=== PATIENT | male | born 1980 | race Two or more races ===

== ENCOUNTER 2022-03-28 08:15 | Outpatient (REF) | payer MEDICARE, MEDICAID, SELFPAY ==
--- NOTE | ~2022-03-28 | XR_ITS ---
EXAMINATION: XR KNEE AP STANDING CLINICAL INFORMATION: M25.561 - Pain in right knee COMPARISON: Bilateral knee radiographs 06/08/2019 TECHNIQUE: Standing AP view of both knees is performed. FINDINGS: Normal bony mineralization. No definite knee joint compartment narrowing. No erosive change or visible chondrocalcinosis. No subchondral sclerosis. XR/XR knee standing BI IMPRESSION: Unremarkable bilateral knees.
== END 2022-03-28 08:16 | disposition home or self-care (01) ==
LOC: HO.HOSX 08:15
PROVIDERS: Visit Provider Physician Assistant
DX: M22.2X2 Patellofemoral disorders, left knee (principal); M22.2X1 Patellofemoral disorders, right knee
CPT/HCPCS: 73565; 99202

== ENCOUNTER 2022-04-16 08:26 | Outpatient (REF) | payer MEDICARE, MEDICAID, SELFPAY ==
--- NOTE | ~2022-04-16 | XR_ITS ---
EXAMINATION: XR HAND, RIGHT CLINICAL INFORMATION: Pain COMPARISON: None TECHNIQUE: PA, lateral, and oblique views of the right hand. FINDINGS: Bone alignment is normal. No fracture or dislocation is seen. There is mild arthritis at the IP joints and first MCP and SENIOR CARE joints with small osteophytes. Soft tissues are unremarkable. XR/XR hand RT min 3V IMPRESSION: Mild degenerative changes.
== END 2022-04-16 08:27 | disposition home or self-care (01) ==
LOC: HO.HOSX 08:26
PROVIDERS: Visit Provider Orthopaedic Surgery
DX: M65.4 Radial styloid tenosynovitis [de Quervain] (principal); R20.0 Anesthesia of skin; R20.2 Paresthesia of skin
CPT/HCPCS: 20550; 73130; 99202; J1100

== ENCOUNTER → 2022-04-29 14:46 | Outpatient (BNVA) | payer MEDICARE, MEDICAID, SELFPAY | PROVIDERS: PCP Nurse Practitioner; Visit Provider Orthopaedic Surgery | DX: M65.4 Radial styloid tenosynovitis [de Quervain] (principal); M25.531 Pain in right wrist; R20.0 Anesthesia of skin; R20.2 Paresthesia of skin | CPT/HCPCS: 99212 ==

== ENCOUNTER → 2022-11-27 10:31 | Outpatient (BNVA) | payer MEDICARE, MEDICAID, SELFPAY | PROVIDERS: PCP Nurse Practitioner; Visit Provider Student in an Organized Health Care Education/Training Program | DX: L40.50 Arthropathic psoriasis, unspecified (principal) | CPT/HCPCS: 99202 ==

== ENCOUNTER 2023-01-07 13:30 | Outpatient (REF) | payer MEDICARE, MEDICAID, SELFPAY ==
[2023-01-07 13:50] LABS: MANUAL DIFF FLAG NO
[2023-01-07 14:56] LABS: Basophils Absolute Auto 0.1 X10*3/uL (0.0-0.2); Basophils Percent Auto 0.7 % (0-2); Eosinophils Absolute Auto 0.4 X10*3/uL (0.0-0.4); Eosinophils Percent Auto 5.5 % (0-4); Hematocrit 34.5 % (42.0-52.0); Hemoglobin 11.1 g/dl (14.0-18.0); Imm Gran Abs Auto 0.03 X10*3/uL (0.00-0.03); Imm Gran Pct Auto 0.4 % (0.0-0.4); Lymphocytes Absolute Auto 1.5 X10*3/uL (1.2-4.9); Lymphocytes Percent Auto 21.4 % (20-40); Mean Corpuscular HGB Conc 32.2 g/dl (31.0-36.0); Mean Corpuscular Hemoglobin 25.1 pg (27.0-33.0); Mean Corpuscular Volume 78.1 fL (80.0-98.0); Mean Platelet Volume 8.9 fL (9.4-12.4); Monocytes Absolute Auto 0.4 X10*3/uL (0.1-1.2); Monocytes Percent Auto 6.1 % (2-11); Neutrophils Absolute Auto 4.5 x10*3/uL (2.0-8.3); Neutrophils Percent Auto 65.9 % (45-73); Platelet Count 339 X10*3/uL (160-400); Red Blood Count 4.42 X10*6/uL (4.60-5.80); White Blood Count 6.8 X10*3/uL (4.8-10.8)
[2023-01-07 15:26] LABS: Alanine Aminotransferase 25 U/L (0-40); Albumin Level 3.8 g/dL (3.5-5.0); Alkaline Phosphatase 98 U/L (39-117); Anion Gap 14 (12-20); Aspartate Amino Transferase 26 U/L (5-37); Bilirubin Total 0.2 mg/dL (0.0-1.0); Blood Urea Nitrogen 7 mg/dL (9-16); C Reactive Protein 2.53 mg/dL (< or = 0.50); Calcium 9.1 mg/dL (8.4-10.2); Carbon Dioxide 29 mmol/L (22-29); Chloride 100 mmol/L (96-108); Estimated Glomerular Filt Rate > 60; Glucose Random 188 mg/dL (60-115); Potassium 4.6 mmol/L (3.3-5.1); Sodium 138 mmol/L (135-145); Total Protein 7.4 g/dL (6.5-8.0)
[2023-01-07 15:28] LABS: Erythrocyte Sedimentation Rate 21 MM/HR (0-15)
[2023-01-09 07:02] LABS: HBS Num1 0.18 mIU/mL (0-7.99); HBc Num1 0.26 S/CO (0.00-0.79); HBsAGNum1 0.34 S/CO (0.00-0.99); Hepatitis A Antibody IgM 0.12 Index (0-0.79); Hepatitis B Core Antibody Nonreactive (Nonreactive); Hepatitis B Surface Antigen Negative (Negative); ~HepC Num1 0.15 S/CO (0.00-0.79); ~Hepatitis A Antibody IgM Nonreactive (Nonreactive); ~Hepatitis B Surface Antibody NONREACTIVE (Nonreactive); ~Hepatitis C Antibody Nonreactive (Nonreactive)
[2023-01-09 22:04] LABS: Prot Elec - Albumin 3.8 g/dL (3.8-4.8); Prot Elec - Alpha1 0.3 g/dL (0.2-0.3); Prot Elec - Alpha2 0.8 g/dL (0.5-0.9); Prot Elec - Beta 1 0.6 g/dL (0.4-0.6); Prot Elec - Beta 2 0.8 g/dL (0.2-0.5); Prot Elec - Gamma 1.5 g/dL (0.8-1.7); Prot Elec - Total Protein 7.7 g/dL (6.1-8.1)
[2023-01-10 07:54] LABS: TS Negative Control Passed; TS Panel A 1; TS Panel B 0; TS Positive Control Passed; TSpotTB Negative (Negative)
[2023-01-12 09:19] LABS: IgA 807 mg/dL (47-310); IgG 1432 mg/dL (600-1640); IgM 53 mg/dL (50-300)
[2023-01-12 12:29] LABS: HLA B27 Negative (Negative)
== END 2023-01-07 13:31 | disposition home or self-care (01) ==
LOC: HO.LAB 13:30
PROVIDERS: Visit Provider Student in an Organized Health Care Education/Training Program
DX: Z11.7 Encounter for testing for latent tuberculosis infection (principal); Z11.59 Encounter for screening for other viral diseases; L40.50 Arthropathic psoriasis, unspecified; L40.9 Psoriasis, unspecified; M54.50 Low back pain, unspecified
CPT/HCPCS: 36415; 80053; 82784; 84165; 85025; 85652; 86140; 86334; 86481; 86704; 86706; 86709; 86803; 86812; 87340

== ENCOUNTER → 2023-03-05 10:49 | Outpatient (BNVA) | payer MEDICARE, MEDICAID, SELFPAY | PROVIDERS: PCP Nurse Practitioner; Visit Provider Student in an Organized Health Care Education/Training Program | DX: L40.50 Arthropathic psoriasis, unspecified (principal); E11.9 Type 2 diabetes mellitus without complications; I10 Essential (primary) hypertension; E78.5 Hyperlipidemia, unspecified; Z79.631 Long term (current) use of antimetabolite agent; Z79.4 Long term (current) use of insulin | CPT/HCPCS: 99212 ==

== ENCOUNTER 2023-06-11 14:43 | Outpatient (REF) | payer MEDICARE, MEDICAID, SELFPAY ==
[2023-06-11 14:58] LABS: MANUAL DIFF FLAG NO
[2023-06-11 15:35] LABS: Basophils Absolute Auto 0.1 X10*3/uL (0.0-0.2); Basophils Percent Auto 0.8 % (0-2); Eosinophils Absolute Auto 0.3 X10*3/uL (0.0-0.4); Eosinophils Percent Auto 4.3 % (0-4); Hematocrit 33.7 % (42.0-52.0); Imm Gran Abs Auto 0.04 X10*3/uL (0.00-0.03); Imm Gran Pct Auto 0.6 % (0.0-0.4); Lymphocytes Absolute Auto 1.5 X10*3/uL (1.2-4.9); Lymphocytes Percent Auto 22.3 % (20-40); Mean Corpuscular HGB Conc 32.6 g/dl (31.0-36.0); Mean Corpuscular Hemoglobin 26.3 pg (27.0-33.0); Mean Corpuscular Volume 80.6 fL (80.0-98.0); Mean Platelet Volume 9.6 fL (9.4-12.4); Monocytes Absolute Auto 0.4 X10*3/uL (0.1-1.2); Monocytes Percent Auto 6.5 % (2-11); Neutrophils Absolute Auto 4.3 x10*3/uL (2.0-8.3); Neutrophils Percent Auto 65.5 % (45-73); Platelet Count 291 X10*3/uL (160-400); Red Blood Count 4.18 X10*6/uL (4.60-5.80); Red Cell Distribution Width 14.2 % (11.0-16.0); White Blood Count 6.5 X10*3/uL (4.8-10.8)
[2023-06-11 16:22] LABS: Alanine Aminotransferase 43 U/L (0-40); Albumin Level 3.9 g/dL (3.5-5.0); Alkaline Phosphatase 95 U/L (39-117); Anion Gap 16 (12-20); Aspartate Amino Transferase 41 U/L (5-37); Bilirubin Total 0.2 mg/dL (0.0-1.0); C Reactive Protein 4.06 mg/dL (< or = 0.50); Calcium 9.3 mg/dL (8.4-10.2); Carbon Dioxide 26 mmol/L (22-29); Chloride 98 mmol/L (96-108); Estimated Glomerular Filt Rate > 60; Glucose Random 277 mg/dL (60-115); Potassium 4.5 mmol/L (3.3-5.1); Sodium 135 mmol/L (135-145); Total Protein 7.6 g/dL (6.5-8.0)
[2023-06-11 17:05] LABS: Estimated Average Glucose 189 mg/dL; Hemoglobin A1c % 8.2 %
[2023-06-11 17:16] LABS: Blood Urea Nitrogen 9 mg/dL (9-16)
[2023-06-11 18:32] LABS: Erythrocyte Sedimentation Rate 33 MM/HR (0-15)
== END 2023-06-11 14:44 | disposition home or self-care (01) ==
LOC: HO.LAB 14:43
PROVIDERS: Visit Provider Student in an Organized Health Care Education/Training Program
DX: L40.50 Arthropathic psoriasis, unspecified (principal); E11.9 Type 2 diabetes mellitus without complications; Z79.631 Long term (current) use of antimetabolite agent; Z79.899 Other long term (current) drug therapy
CPT/HCPCS: 36415; 80053; 83036; 85025; 85652; 86140; 99212

== ENCOUNTER 2023-06-11 15:15 | Outpatient (AMB) | payer MEDICARE, MEDICAID, SELFPAY ==
--- NOTE | 2023-06-11 15:08 | A.OFFVIS_ITS ---
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 Accompanied by: Self / Same As Patient Allergies codeine Allergy (Severe, Verified 06/11/23 15:10) Swelling Medication List - Last Reconciled 06/11/23 by Jasmin Edouard MD dulaglutide (Trulicity) mg subcut folic acid 1 mg PO DAILY gabapentin 300 mg PO TID glipizide 5 mg PO BID hydrochlorothiazide 25 mg PO DAILY hydroxyzine HCl 25 mg PO TID lisinopril 40 mg PO DAILY meloxicam 15 mg PO DAILY metformin ER 1,000 mg PO BID methotrexate sodium 20 mg (8 x 2.5 mg) PO QWEEK polyethylene glycol 3350 17 grams PO DAILY risankizumab-rzaa (Skyrizi) 150 mg subcut Q4W 2 doses HPI HPI Comments History of Present Illness Details 42-year-old male with psoriasis and psoriatic arthritis returns for follow-up. His psoriasis is much better overall, his scalp, arms, forearms is entirely cleared, barely any psoriasis on his chest and abdomen, continues to have some psoriatic patches behind his ears and on his legs but much improved overall. His main complaint however remains his left knee pain, stiffness and swelling. Initial history: This is a 41-year-old male with a past medical history of hypertension, dyslipidemia, diabetes mellitus and psoriasis of presents for evaluation of psoriasis and psoriatic arthritis. Per patient he was diagnosed with psoriasis more than 20 years ago and psoriatic arthritis about 10 years ago. He stated he was on multiple medications for psoriasis but does not know the specifics. He stated that topical creams did not help. He was on Enbrel many years ago which helped for some time then it stopped helping, Humira did not help. He was started on Taltz about a year ago and it helped for about 5-6 months then stopped helping. He was also on cyclosporin for a few months which did seem to help but stopped helping. Currently has bilateral knee pain and right wrist pain. He denies any significant back pain. He had a colonoscopy last year for rectal bleeding and was told he has internal hemorrhoids. Per patient he was not told he has IBD. No inflammatory back pain symptoms. No history suggestive of uveitis. 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 Review of Systems [facility] Reports arthralgias and Reports joint swelling Skin/Breast Details: Psoriasis rash improved Reports rash Physical Exam Vital Signs: Last Vital Signs Temp 97.7 F 06/11/23 15:09 Pulse 87 06/11/23 15:09 BP 120/78 06/11/23 15:09 Pulse Ox 97 06/11/23 15:09 Oxygen Delivery Method Room Air 06/11/23 15:09 BMI result Body Mass Index 43.4 Const General: cooperative, healthy appearing, comfortable and in distress mild Nutritional Appearance: obese Orientation/consciousness: patient oriented x3 Limitations: no limitations HEENT Head: Yes normocephalic and Yes atraumatic Mouth: moist mucous membranes Resp Effort & Inspection: normal respiratory effort and able to speak in complete sentences Skin Other: Psoriasis is much improved, no psoriasis on face or scalp. Few psoriatic patches behind both ears. Barely any psoriasis on chest and abdomen. No psoriasis on arms and forearms. Continues to have few psoriatic patches from his knees down. Neuro General: patient oriented x3 Extrem Other: Bilateral nail pitting Left knee swelling and tenderness and pain with range of motion Right wrist pain with full flexion Assessment & Plan Assessment & Plan (1) Psoriasis: Comment: per patient: PSO dx around 1999 Enbrel secondary nonresponse Humira no response Taltz helped initially then stopped helping Cyclosporin not helpful Topical steroids not helpful Skyrizi started 01/08 effective MTX started 01/08 Code(s): L40.9 - Psoriasis, unspecified Plan: 42-year-old male with psoriasis presents for follow-up. Psoriasis doing much better overall on Skrizi and methotrexate. Patient received numerous biologics and he usually gets secondary nonresponse. He might be the developing autoantibodies towards the medications. Methotrexate may help prevent the formation of those antibodies and increase drug survival. Continue methotrexate 20 mg once weekly and folic acid daily. Continue Skyrizi Labs before next visit in 3 months Infectious screening and hepatitis panel negative 2022 (2) Psoriatic arthritis: Code(s): L40.50 - Arthropathic psoriasis, unspecified Plan: Psoriatic arthritis much better controlled on methotrexate and skyrizi. Continues to have left knee synovitis however. I was still unable to offer patient a corticosteroid injection due to psoriatic patches around his knee. Patient does not know what his most recent HbA1c was and does not know his latest blood sugar. Would avoid steroids today. Advised patient to start using meloxicam 15 mg daily (3) High risk medication use: Code(s): Z79.899 - Other rat exterminator (current) drug therapy Plan: Discussed risks and benefits of methotrexate and Skyrizi Stop methotrexate and Skyrizi if he develops a fever or infection. Monitor safety labs Plan I spent 26 minutes reviewing patient's chart, evaluating patient, ordering diagnostic workup, counseling patient and documenting in the chart Orders: Orders Complete Blood Count Auto Diff 3 Months L40.50 - Arthropathic psoriasis, unspecified Comprehensive Met. Panel 3 Months L40.50 - Arthropathic psoriasis, unspecified C Reactive Protein 3 Months L40.50 - Arthropathic psoriasis, unspecified Erythrocyte Sedimentation Rate 3 Months L40.50 - Arthropathic psoriasis, unsp ecified Medications: New meloxicam 15 mg PO DAILY 30 tabs 1RF Discontinued prednisone Discontinued Reason: Doctor's Order take 3 tabs by mouth once daily with breakfast for 1 week then 2 tabs daily for 1 week then 1 tab daily for 1 week th en stop Check your blood sugar and stop prednisone and call the office if blood sugar is above 250 42 tabs 0RF Coding Level of Care Code Est Pt Level 4 (06985) Diagnoses Psoriasis L40.9 Psoriatic arthritis L40.50 High risk medication use Z79.899
[2023-06-11 15:09] VITALS: BP 120/78; PULSE 87; TEMP 36.5; O2SAT 97; BMI 43.4
== END 2023-06-11 15:44 | disposition home or self-care (01) ==
PROVIDERS: PCP Family Medicine; Visit Provider Student in an Organized Health Care Education/Training Program
DX: L40.9 Psoriasis, unspecified (principal); L40.50 Arthropathic psoriasis, unspecified; Z79.899 Other long term (current) drug therapy
CPT/HCPCS: 99214

== ENCOUNTER 2023-07-02 09:33 | Outpatient (REF) | payer MEDICARE, MEDICAID, SELFPAY ==
[2023-07-02 14:17] LABS: MANUAL DIFF FLAG NO
[2023-07-02 14:25] LABS: Basophils Absolute Auto 0.1 X10*3/uL (0.0-0.2); Eosinophils Absolute Auto 0.4 X10*3/uL (0.0-0.4); Hematocrit 35.4 % (42.0-52.0); Hemoglobin 11.3 g/dl (14.0-18.0); Imm Gran Abs Auto 0.03 X10*3/uL (0.00-0.03); Imm Gran Pct Auto 0.4 % (0.0-0.4); Lymphocytes Absolute Auto 2.2 X10*3/uL (1.2-4.9); Lymphocytes Percent Auto 30.1 % (20-40); Mean Corpuscular HGB Conc 31.9 g/dl (31.0-36.0); Mean Corpuscular Hemoglobin 25.7 pg (27.0-33.0); Mean Corpuscular Volume 80.5 fL (80.0-98.0); Mean Platelet Volume 9.1 fL (9.4-12.4); Monocytes Absolute Auto 0.5 X10*3/uL (0.1-1.2); Monocytes Percent Auto 6.4 % (2-11); Neutrophils Absolute Auto 4.1 x10*3/uL (2.0-8.3); Neutrophils Percent Auto 57.1 % (45-73); Platelet Count 357 X10*3/uL (160-400); White Blood Count 7.2 X10*3/uL (4.8-10.8)
[2023-07-02 14:39] LABS: Microalbum/Creatinine Ratio Ur 6.2 ug/mg cr
[2023-07-02 14:56] LABS: Alanine Aminotransferase 61 U/L (0-40); Albumin Level 4.4 g/dL (3.5-5.0); Alkaline Phosphatase 87 U/L (39-117); Anion Gap 13 (12-20); Aspartate Amino Transferase 50 U/L (5-37); Bilirubin Total 0.2 mg/dL (0.0-1.0); Blood Urea Nitrogen 10 mg/dL (9-16); Carbon Dioxide 28 mmol/L (22-29); Chloride 102 mmol/L (96-108); Cholesterol 144 mg/dL; Estimated Glomerular Filt Rate > 60; Glucose Fasting 132 mg/dL (60-99); HDL Cholesterol 30 mg/dL; LDL Cholesterol Calculated 79 mg/dl; Potassium 4.4 mmol/L (3.3-5.1); Sodium 139 mmol/L (135-145); Total Protein 8.3 g/dL (6.5-8.0); Triglycerides 175 mg/dL
[2023-07-02 15:13] LABS: TSH reflex Free T4 2.49 uIU/mL (0.32-4.0)
[2023-07-02 15:21] LABS: Folate 12.8 ng/mL (> or = 4.0); Vitamin B12 486 pg/mL (200-900)
== END 2023-07-02 09:34 | disposition home or self-care (01) ==
LOC: HO.CHCLDS 09:33
PROVIDERS: Visit Provider Family Medicine
DX: E11.65 Type 2 diabetes mellitus with hyperglycemia (principal)
CPT/HCPCS: 36415; 80053; 80061; 82043; 82607; 82746; 84443; 85025

== ENCOUNTER → 2023-07-24 09:02 | Outpatient (REF) | payer MEDICARE, MEDICAID, SELFPAY ==
--- NOTE | 2023-07-24 09:06 | HM_ITS ---
Conclusion: 1. Patient was monitored for total period of 1 day 2. Baseline was normal sinus rhythm with average heart rate of 93 beats per minute 3. No significant arrhythmias detected 4. No significant pauses noted 5. Patient marked the counter 1 time with no associated symptoms correlating with sinus tachycardia MTDD
== END ==
LOC: HO.CARD 09:02
PROVIDERS: PCP Family Medicine; Visit Provider Family Medicine
DX: R00.2 Palpitations (principal)
CPT/HCPCS: 93225

== ENCOUNTER → 2023-07-24 09:06 | Outpatient (BNV) | payer MEDICARE, MEDICAID, SELFPAY | PROVIDERS: PCP Family Medicine; Visit Provider Internal Medicine Cardiovascular Disease | DX: R00.2 Palpitations (principal) | CPT/HCPCS: 93227 ==

== ENCOUNTER 2023-08-13 14:23 | Outpatient (AMB) | payer MEDICARE, MEDICAID, SELFPAY ==
--- NOTE | 2023-08-13 14:36 | MHC.OFFVIS ---
Intake Intake Visit Reasons: Epidermal inclusion cyst Intake Note: Patient is seen in office for evaluation and treatment of an epidermal cyst. 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 This is been present for several weeks but was not associated with any redness in the skin. He presents for possible epidermal inclusion cyst abscess. He denies any fever, chills, nausea or vomiting. He does have a history of diabetes mellitus and psoriatic arthritis. He denies any bleeding or discharge in the axilla. 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 Area of palpable tenderness in the lower axilla with no evidence of an epidermal inclusion cyst. Findings are suggestive of left axillary lymphadenopathy. No skin erythema is appreciated. Resp Effort & Inspection: normal respiratory effort, no audible wheezes, no cough and no respiratory distress GI Inspection: Yes normal to inspection Neuro General: patient oriented x3 Extrem General: Yes no clubbing, cyanosis or edema Assessment & Plan Assessment & Plan (1) Lymphadenopathy, axillary: Code(s): R59.0 - Localized enlarged lymph nodes Plan 42-year-old male patient presenting with pain in the left axilla found to be most likely axillary lymphadenitis. There is no evidence of an epidermal inclusion cyst or lymph node abscess at this time. I recommended observation with follow-up in approximately 2 weeks for repeat examination. He expressed understanding and agrees with the plan. Coding Level of Care Code New Pt Level 4 (88671) Diagnoses Lymphadenopathy, axillary R59.0
== END 2023-08-13 14:54 | disposition home or self-care (01) ==
PROVIDERS: PCP Family Medicine; Visit Provider Surgery
DX: R59.0 Localized enlarged lymph nodes (principal)
CPT/HCPCS: 99203

== ENCOUNTER → 2023-08-13 14:23 | Outpatient (BNVA) | payer MEDICARE, MEDICAID, SELFPAY | PROVIDERS: PCP Family Medicine; Visit Provider Surgery ==

== ENCOUNTER 2023-08-25 15:22 | Outpatient (REF) | payer MEDICARE, MEDICAID, SELFPAY | END 2023-08-25 15:23 | disposition home or self-care (01) | LOC: HO.LAB 15:22 | PROVIDERS: PCP Family Medicine; Visit Provider Student in an Organized Health Care Education/Training Program | DX: L40.50 Arthropathic psoriasis, unspecified (principal) | CPT/HCPCS: 36415; 80053; 85025; 85652; 86140 ==

== ENCOUNTER 2023-08-28 11:44 | Outpatient (AMB) | payer MEDICARE, MEDICAID, SELFPAY ==
--- NOTE | 2023-08-28 12:49 | MHC.OFFVIS ---
Intake Vital Signs 08/28/23 12:50 Height 5 ft 6 in Weight 267 lb 10.259 oz BMI 43.2 BP 142/84 H Blood Pressure Location Rt brachial Position Sitting Pulse 84 Pulse Source Pulse Oximeter Temp 96.6 F L Temp Source Skin Pulse Oximetry (%) 97 Intake Visit Reasons: PsA Intake Note: Pt seen today for follow up and test results. C/o pain bl knee, left is worse. Right leg pain and numbing. He states he is concerned with blod clot Reports swelling in feet. 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 Accompanied by: Self / Same As Patient Allergies codeine Allergy (Severe, Verified 08/28/23 12:53) Swelling Medication List - Last Reconciled 08/28/23 by Jasmin Edouard MD chlorthalidone 25 mg PO DAILY diclofenac sodium 1% (Voltaren Arthritis Pain) 4 grams topical QID dulaglutide (Trulicity) mg subcut folic acid 1 mg PO DAILY gabapentin 300 mg PO TID glipizide 5 mg PO BID hydrochlorothiazide 25 mg PO DAILY hydroxyzine HCl 25 mg PO TID lisinopril 40 mg PO DAILY meloxicam 15 mg PO DAILY metformin ER 1,000 mg PO BID methotrexate sodium 20 mg (8 x 2.5 mg) PO QWEEK polyethylene glycol 3350 17 grams PO DAILY risankizumab-rzaa (Skyrizi) 150 mg subcut Q4W 2 doses Skyrizi (risankizumab-rzaa) 150 mg subcut Q12W NS spironolactone 25 mg PO DAILY HPI HPI Comments History of Present Illness Details 42-year-old male with psoriasis and psoriatic arthritis returns for follow-up. On scar easy 150 mg every 12 weeks and methotrexate 20 mg weekly. His psoriasis is very well controlled overall. Has a few patches on his right leg. States that recently he has developed skin rash in his left side, abdomen chest and back. Rash is not itchy or painful. States that he has been much more active recently. Trying to lose weight. Continues to have bilateral knee pain, worse on the left. Difficulty walking. States that he has left ankle pain. Denies any pain or swelling in his hands Initial history: This is a 41-year-old male with a past medical history of hypertension, dyslipidemia, diabetes mellitus and psoriasis of presents for evaluation of psoriasis and psoriatic arthritis. Per patient he was diagnosed with psoriasis more than 20 years ago and psoriatic arthritis about 10 years ago. He stated he was on multiple medications for psoriasis but does not know the specifics. He stated that topical creams did not help. He was on Enbrel many years ago which helped for some time then it stopped helping, Humira did not help. He was started on Taltz about a year ago and it helped for about 5-6 months then stopped helping. He was also on cyclosporin for a few months which did seem to help but stopped helping. Currently has bilateral knee pain and right wrist pain. He denies any significant back pain. He had a colonoscopy last year for rectal bleeding and was told he has internal hemorrhoids. Per patient he was not told he has IBD. No inflammatory back pain symptoms. No history suggestive of uveitis. 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 Review of Systems [facility] Reports arthralgias and Reports joint swelling Skin/Breast Reports rash Physical Exam Vital Signs: Last Vital Signs Temp 96.6 F L 08/28/23 12:50 Pulse 84 08/28/23 12:50 BP 142/84 H 08/28/23 12:50 Pulse Ox 97 08/28/23 12:50 BMI result Body Mass Index 43.2 Const General: cooperative, healthy appearing, comfortable and in distress mild Nutritional Appearance: obese Orientation/consciousness: patient oriented x3 Limitations: no limitations HEENT Head: Yes normocephalic and Yes atraumatic Mouth: moist mucous membranes Resp Effort & Inspection: normal respiratory effort and able to speak in complete sentences Skin Other: Only a few psoriasis patches on his right leg Numerous small circular of papules on his back on the left, abdomen and side. Neuro General: patient oriented x3 Extrem Other: Bilateral nail pitting Left knee swelling and tenderness and pain with range of motion Left ankle tenderness to palpation without significant swelling Office Procedures Joint Injection/Drain Joint Injection/Drain Primary Site: left knee Prep: site was prepped using sterile technique and ethochloride spray was applied Injected: 40 mg of, Kenalog and other (2 mL of 1% lidocaine) Approach Used: medial parapatellar Procedure: The patient tolerated the procedure well Coding Details: With the patient's consent the left knee was prepped with ChloraPrep and alcohol. The skin was anesthetized with 2 cc of 1% lidocaine. The knee was then injected with 40 mg of triamcinolone and 2 cc of I % lidocaine. The patient tolerated the procedure with no immediate adverse effects. - Large joint Procedure code (CPT) selection complete Assessment & Plan Assessment & Plan (1) Psoriasis: Comment: per patient: PSO dx around 1999 Enbrel secondary nonresponse Humira no response Taltz helped initially then stopped helping Cyclosporin not helpful Topical steroids not helpful Skyrizi started 01/08 effective MTX started 01/08 Code(s): L40.9 - Psoriasis, unspecified Plan: 42-year-old male with psoriasis and psoriatic arthritis presents for follow-up. Psoriasis doing much better overall on Skrizi and methotrexate. Patient received numerous biologics and he usually gets secondary nonresponse. He might be the developing autoantibodies towards the medications. Methotrexate may help prevent the formation of those antibodies and increase drug survival. Continue methotrexate 20 mg once weekly and folic acid daily. Continue Skyrizi 150 mg every 12 weeks Labs before next visit in 3 months Infectious screening and hepatitis panel negative 2022 (2) Psoriatic arthritis: Code(s): L40.50 - Arthropathic psoriasis, unspecified Plan: Psoriatic arthritis much better controlled on methotrexate and skyrizi. Continues to have left knee synovitis however. Today the skin over patient's left knee was clear of psoriasis. Her cortisone injection could be done. I discussed risks and benefits of corticosteroid injection with patient including infection, pain, bleeding. I also discussed the risk of hyperglycemia given patient's diagnosis of diabetes. He stated that his blood sugar in the morning today was normal. States that he is on Trulicity and his HbA1c has been improving. With Patient's consent left knee was injected with Kenalog. Advised patient to check his blood sugar as soon as he gets home and multiple times a day over the next few days. All his PCP or go to the emergency room is his blood sugars too high. Patient takes the bus home. Advised patient to go to the emergency room if he feels dizzy/lightheaded. (3) High risk medication use: Code(s): Z79.899 - Other usp (current) drug therapy Plan: Discussed risks and benefits of methotrexate and Skyrizi Stop methotrexate and Skyrizi if he develops a fever or infection. Monitor safety labs (4) Rash: Code(s): R21 - Rash and other nonspecific skin eruption Plan: Patient has developed a skin rash on his trunk since increasing his physical activity ends sweating. This might be adult onset milia, though the diagnosis is unclear. Advised patient to quickly change wet clothes, use a right up to wash up and clean his skin. If no improvement follow-up with Dermatology Plan I spent 46 minutes reviewing patient's chart, evaluating patient, ordering diagnostic workup, counseling patient and documenting in the chart Orders: Orders Complete Blood Count Auto Diff 3 Months Z79.899 - Other long term acute care registered nurse (current) drug therapy Comprehensive Met. Panel 3 Months Z79.899 - Other long term acute care registered nurse (current) drug therapy AMB Joint Injection/Aspiration Today L40.50 - Arthropathic psoriasis, unspecified C Reactive Protein 3 Months Z79.899 - Other usp (current) drug therapy Erythrocyte Sedimentation Rate 3 Months Z79.899 - Other long term acute care registered nurse (current) drug therapy Ferritin 3 Months D64.9 - Anemia, unspecified IRON PROFILE 3 Months D64.9 - Anemia, unspecified Transferrin 3 Months D64.9 - Anemia, unspecified Medications: New Skyrizi (risankizumab-rzaa) 150 mg subcut Q12W 1 mL 2RF NS Refilled methotrexate sodium 20 mg (8 x 2.5 mg) PO QWEEK 96 tabs 0RF Coding Level of Care Code Est Pt Level 5 (45411) Diagnoses Psoriasis L40.9 Psoriatic arthritis L40.50 High risk medication use Z79.899 Rash R21 CPT Codes Coding - 49310 Large joint: 55016 - Large joint ([id number])
[2023-08-28 12:50] VITALS: BP 142/84; PULSE 84; TEMP 35.9; O2SAT 97; BMI 43.2
== END 2023-08-28 13:29 | disposition home or self-care (01) ==
PROVIDERS: PCP Family Medicine; Visit Provider Student in an Organized Health Care Education/Training Program
DX: L40.9 Psoriasis, unspecified (principal); L40.50 Arthropathic psoriasis, unspecified; Z79.899 Other long term (current) drug therapy; R21 Rash and other nonspecific skin eruption
CPT/HCPCS: 20610; 99215

== ENCOUNTER → 2023-08-28 11:44 | Outpatient (BNVA) | payer MEDICARE, MEDICAID, SELFPAY | PROVIDERS: PCP Family Medicine; Visit Provider Student in an Organized Health Care Education/Training Program | DX: L40.50 Arthropathic psoriasis, unspecified (principal); L40.9 Psoriasis, unspecified; R21 Rash and other nonspecific skin eruption; Z79.899 Other long term (current) drug therapy | CPT/HCPCS: 20610; 99212 ==

== ENCOUNTER 2024-01-28 12:23 | Outpatient (REF) | payer MEDICARE, MEDICAID, SELFPAY ==
[2024-01-28 12:35] LABS: MANUAL DIFF FLAG NO
[2024-01-28 12:58] LABS: Basophils Absolute Auto 0.1 X10*3/uL (0.0-0.2); Basophils Percent Auto 0.6 % (0-2); Eosinophils Absolute Auto 0.3 X10*3/uL (0.0-0.4); Eosinophils Percent Auto 3.4 % (0-4); Hematocrit 35.1 % (42.0-52.0); Hemoglobin 11.3 g/dl (14.0-18.0); Imm Gran Abs Auto 0.05 X10*3/uL (0.00-0.03); Imm Gran Pct Auto 0.6 % (0.0-0.4); Lymphocytes Absolute Auto 1.8 X10*3/uL (1.2-4.9); Lymphocytes Percent Auto 22.9 % (20-40); Mean Corpuscular HGB Conc 32.2 g/dl (31.0-36.0); Mean Corpuscular Hemoglobin 25.2 pg (27.0-33.0); Mean Corpuscular Volume 78.2 fL (80.0-98.0); Monocytes Absolute Auto 0.5 X10*3/uL (0.1-1.2); Monocytes Percent Auto 6.4 % (2-11); Neutrophils Absolute Auto 5.1 x10*3/uL (2.0-8.3); Neutrophils Percent Auto 66.1 % (45-73); Platelet Count 336 X10*3/uL (160-400); Red Blood Count 4.49 X10*6/uL (4.60-5.80); Red Cell Distribution Width 15.1 % (11.0-16.0); White Blood Count 7.8 X10*3/uL (4.8-10.8)
[2024-01-28 13:37] LABS: Erythrocyte Sedimentation Rate 28 MM/HR (0-15)
[2024-01-28 14:15] LABS: Alanine Aminotransferase 42 U/L (0-40); Albumin Level 4.1 g/dL (3.5-5.0); Alkaline Phosphatase 87 U/L (39-117); Anion Gap 15 (12-20); Aspartate Amino Transferase 39 U/L (5-37); Bilirubin Total 0.2 mg/dL (0.0-1.0); Blood Urea Nitrogen 10 mg/dL (9-16); C Reactive Protein 3.68 mg/dL (< or = 0.50); Calcium 9.4 mg/dL (8.4-10.2); Carbon Dioxide 28 mmol/L (22-29); Chloride 100 mmol/L (96-108); Estimated Glomerular Filt Rate > 60; Glucose Random 179 mg/dL (60-115); Iron 44 mcg/dL (45-160); Percent Iron Saturation 13 % (15-50); Potassium 4.3 mmol/L (3.3-5.1); Sodium 139 mmol/L (135-145); Total Iron Binding Capacity 334 mcg/dL (228-428); Total Protein 7.9 g/dL (6.5-8.0); Unsaturated Iron Binding 290 ug/dL
[2024-01-28 14:23] LABS: Ferritin 178 ng/mL (20-250)
[2024-01-29 17:08] LABS: Transferrin 315 mg/dL (188-341)
== END 2024-01-28 12:24 | disposition home or self-care (01) ==
LOC: HO.LAB 12:23
PROVIDERS: Visit Provider Student in an Organized Health Care Education/Training Program
DX: D64.9 Anemia, unspecified (principal); Z79.899 Other long term (current) drug therapy
CPT/HCPCS: 36415; 80053; 82728; 83540; 84466; 85025; 85652; 86140

== ENCOUNTER 2024-02-17 16:21 | Outpatient (AMB) | payer MEDICARE, MEDICAID, SELFPAY ==
--- NOTE | 2024-02-17 16:17 | A.OFFVIS_ITS ---
Intake Vital Signs 3 02/17/24 16:27 Height 5 ft 6 in Weight 281 lb 4.957 oz BMI 45.4 BP 140/68 H Blood Pressure Location Rt brachial Position Sitting Pulse 79 Pulse Source Pulse Oximeter Pulse Oximetry (%) 100 Oxygen Delivery Method Room Air Intake Visit Reasons: PSA Intake Note: Patient last seen 08/28/23 presents today for follow up and test results. 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: No Accompanied by: Self / Same As Patient Allergies codeine Allergy (Severe, Verified 02/17/24 16:28) Swelling Medication List - Last Reconciled 02/17/24 by Jasmin Edouard MD chlorthalidone 25 mg PO DAILY diclofenac sodium 1% (Voltaren Arthritis Pain) 4 grams topical QID dulaglutide (Trulicity) mg subcut folic acid 1 mg PO DAILY gabapentin 300 mg PO TID glipizide 5 mg PO BID hydrochlorothiazide 25 mg PO DAILY hydroxyzine HCl 25 mg PO TID lisinopril 40 mg PO DAILY meloxicam 15 mg PO DAILY metformin ER 1,000 mg PO BID methotrexate sodium 20 mg (8 x 2.5 mg) PO QWEEK polyethylene glycol 3350 17 grams PO DAILY risankizumab-rzaa (Skyrizi) 150 mg subcut Q4W 2 doses Skyrizi (risankizumab-rzaa) 150 mg subcut Q12W NS spironolactone 25 mg PO DAILY HPI HPI Comments 2 History of Present Illness0 Details 43-year-old male with psoriasis and psor iatic arthritis returns for follow-up. On Skyrizi 150 mg every 12 weeks and methotrexate 20 mg weekly. Has not been doing well recently. His psoriasis is flaring especially on his torso, abdomen, back, forearms, most severe is his legs. Has been having some right hand pain especially with activities. States that steroid injection done for the left knee last visit was quite helpful until just recently. Today's requesting steroid injection for the left knee. States that his right knee also bothersome and would like an injection there but it has not urgent Initial history: This is a 41-year-old male with a past medical history of hypertension, dyslipidemia, diabetes mellitus and psoriasis of presents for evaluation of psoriasis and psoriatic arthritis. Per patient he was diagnosed with psoriasis more than 20 years ago and psoriatic arthritis about 10 years ago. He stated he was on multiple medications for psoriasis but does not know the specifics. He stated that topical creams did not help. He was on Enbrel many years ago which helped for some time then it stopped helping, Humira did not help. He was started on Taltz about a year ago and it helped for about 5-6 months then stopped helping. He was also on cyclosporin for a few months which did seem to help but stopped helping. Currently has bilateral knee pain and right wrist pain. He denies any significant back pain. He had a colonoscopy last year for rectal bleeding and was told he has internal hemorrhoids. Per patient he was not told he has IBD. No inflammatory back pain symptoms. No history suggestive of uveitis. 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 The skin was anesthetized with 2 cc of 1% lidocaine. The knee was then injected with 40 mg of triamcinolone and 2 cc of I % lidocaine. The patient tolerated the procedure with no immediate adverse effects. - Large joint Procedure code (CPT) selection complete Assessment & Plan Assessment & Plan (1) Psoriasis: Comment: per patient: PSO dx around 1999 Enbrel secondary nonresponse Humira no response Taltz helped initially then stopped helping Cyclosporin not helpful Topical steroids not helpful Skyrizi started 01/08 effective DC 02/2024 2ry nonresponse MTX started 01/08 Code(s): L40.9 - Psoriasis, unspecified Plan: 43-year-old male with psoriasis and psoriatic arthritis presents for follow- up. Patient was doing quite well on Skyrizi and methotrexate. Psoriasis was well controlled, however his psoriasis significantly flared today. He has extensive patches on his legs and all over his torso. Will need to switch DMARDs. DC Skyruzi. Patient has developed a secondary nonresponse. Switch to Sotyktu. Is also having a mild flare of his psoriatic arthritis. Particularly affecting his knees. Thankfully there was no psoriasis patches overlying his knees today. With patient's consent, left knee was injected with Kenalog. Did not inject the right knee today due to risk of hyperglycemia. Patient will come back in the next couple of weeks for right knee injection Continue methotrexate 20 mg weekly for now. Continue folic acid 1 mg daily Labs before next visit in 3 months Infectious screening and hepatitis panel negative 2022 (2) Psoriatic arthritis: Code(s): L40.50 - Arthropathic psoriasis, unspecified Plan: Continues to have left knee synovitis. This improved with a steroid injection that lasted around 4 months. With patient's consent, left knee was injected today. (3) High risk medication use: Code(s): Z79.899 - Other refrigeration brazer/solderer (current) drug therapy Plan: Monitor safety labs. Patient has been having transaminitis since before methotrexate was started. However I will consider reducing his methotrexate or discontinuing get in the future, I can not discontinue it today as patient will likely flare his psoriasis and psoriatic arthritis Plan I spent 46 minutes reviewing patient's chart, evaluating patient, ordering diagnostic workup, counseling patient and documenting in the chart Orders: Orders 2 Complete Blood Count Auto Diff 3 Months L40.50 - Arthropathic psoriasis, unspecified, Z79.899 - Other refrigeration brazer/solderer (current) drug therapy Comprehensive Met. Panel 3 Months L40.50 - Arthropathic psoriasis, unspecified, Z79.899 - Other intermediate (current) drug therapy Erythrocyte Sedimentation Rate 3 Months L40.50 - Arthropathic psoriasis, unspecified, Z79.899 - Other intermediate (current) drug therapy AMB Joint Injection/Aspiration Today L40.50 - Arthropathic psoriasis, unspecified C Reactive Protein 3 Months L40.50 - Arthropathic psoriasis, unspecified, Z79.899 - Other refrigeration brazer/solderer (current) drug therapy Medications: Discontinued 2 risankizumab-rzaa (Skyrizi) administer at weeks 0 and 4 of treatment Discontinued Reason: Doctor's Order 150 mg subcut Q4W 2 mL 0RF Skyrizi (risankizumab-rzaa) Discontinued Reason: Doctor's Order 150 mg subcut Q12W 1 mL 2RF NS Coding Level of Care Code Est Pt Level 5 (11103) Diagnoses Psoriasis L40.9 Psoriatic arthritis L40.50 High risk medication use Z79.899 CPT Codes Coding - 21855 Large joint: 59526 - Large joint ([id number])
[2024-02-17 16:27] VITALS: BP 140/68; PULSE 79; O2SAT 100; BMI 45.4
== END 2024-02-17 16:50 | disposition home or self-care (01) ==
LOC: HO.RHE 16:21
PROVIDERS: PCP Family Medicine; Visit Provider Student in an Organized Health Care Education/Training Program
DX: L40.9 Psoriasis, unspecified (principal); L40.50 Arthropathic psoriasis, unspecified; Z79.899 Other long term (current) drug therapy
CPT/HCPCS: 20610; 99214

== ENCOUNTER → 2024-02-17 16:21 | Outpatient (BNVA) | payer MEDICARE, MEDICAID, SELFPAY | PROVIDERS: PCP Family Medicine; Visit Provider Student in an Organized Health Care Education/Training Program | DX: L40.9 Psoriasis, unspecified (principal); M25.462 Effusion, left knee; L40.50 Arthropathic psoriasis, unspecified; Z79.899 Other long term (current) drug therapy | CPT/HCPCS: 20610; 99212 ==

== ENCOUNTER 2024-05-23 15:30 | Outpatient (REF) | payer MEDICARE, MEDICAID, SELFPAY ==
[2024-05-23 15:42] LABS: MANUAL DIFF FLAG NO
[2024-05-23 17:16] LABS: Basophils Absolute Auto 0.1 X10*3/uL (0.0-0.2); Basophils Percent Auto 0.6 % (0-2); Eosinophils Absolute Auto 0.3 X10*3/uL (0.0-0.4); Eosinophils Percent Auto 2.9 % (0-4); Hematocrit 36.2 % (42.0-52.0); Hemoglobin 11.5 g/dl (14.0-18.0); Imm Gran Abs Auto 0.05 X10*3/uL (0.00-0.03); Imm Gran Pct Auto 0.5 % (0.0-0.4); Lymphocytes Absolute Auto 1.7 X10*3/uL (1.2-4.9); Lymphocytes Percent Auto 18.5 % (20-40); Mean Corpuscular HGB Conc 31.8 g/dl (31.0-36.0); Mean Corpuscular Hemoglobin 25.7 pg (27.0-33.0); Mean Corpuscular Volume 80.8 fL (80.0-98.0); Mean Platelet Volume 9.1 fL (9.4-12.4); Monocytes Absolute Auto 0.6 X10*3/uL (0.1-1.2); Monocytes Percent Auto 6.5 % (2-11); Neutrophils Absolute Auto 6.6 x10*3/uL (2.0-8.3); Platelet Count 354 X10*3/uL (160-400); Red Blood Count 4.48 X10*6/uL (4.60-5.80); Red Cell Distribution Width 15.4 % (11.0-16.0); White Blood Count 9.3 X10*3/uL (4.8-10.8)
[2024-05-23 17:52] LABS: Alanine Aminotransferase 31 U/L (0-40); Albumin Level 4.2 g/dL (3.5-5.0); Alkaline Phosphatase 94 U/L (39-117); Anion Gap 12 (12-20); Aspartate Amino Transferase 32 U/L (5-37); Bilirubin Total 0.2 mg/dL (0.0-1.0); Blood Urea Nitrogen 10 mg/dL (9-16); C Reactive Protein 3.33 mg/dL (< or = 0.50); Calcium 9.8 mg/dL (8.4-10.2); Carbon Dioxide 31 mmol/L (22-29); Chloride 100 mmol/L (96-108); Estimated Glomerular Filt Rate > 60; Glucose Random 107 mg/dL (60-115); Potassium 4.1 mmol/L (3.3-5.1); Sodium 139 mmol/L (135-145); Total Protein 8.1 g/dL (6.5-8.0)
[2024-05-23 18:24] LABS: Erythrocyte Sedimentation Rate 33 MM/HR (0-15)
== END 2024-05-23 15:31 | disposition home or self-care (01) ==
LOC: HO.LAB 15:30
PROVIDERS: PCP Family Medicine; Visit Provider Student in an Organized Health Care Education/Training Program
DX: L40.50 Arthropathic psoriasis, unspecified (principal); Z79.899 Other long term (current) drug therapy
CPT/HCPCS: 36415; 80053; 85025; 85652; 86140

== ENCOUNTER 2024-05-25 10:43 | Outpatient (AMB) | payer MEDICARE, MEDICAID, SELFPAY ==
--- NOTE | 2024-05-25 10:44 | A.OFFVIS_ITS ---
Vital Signs 3 05/25/24 10:53 Height 5 ft 6 in Weight 269 lb 6.478 oz BMI 43.5 BP 134/80 Blood Pressure Location Lt brachial Position Sitting Pulse 90 Pulse Source Pulse Oximeter Pulse Oximetry (%) 99 Oxygen Delivery Method Room Air Intake Visit Reasons: PSA/lm Intake Note: Patient presents for PSA. no longer taking Sotyktu 6mg due to side effects. Allergies codeine Allergy (Severe, Verified 05/25/24 10:51) Swelling Medication List - Last Reconciled 05/25/24 by Jasmin Edouard MD chlorthalidone 25 mg PO DAILY diclofenac sodium 1% (Voltaren Arthritis Pain) 4 grams topical QID folic acid 1 mg PO DAILY gabapentin 300 mg PO TID glipizide 5 mg PO BID hydrochlorothiazide 25 mg PO DAILY hydroxyzine HCl 25 mg PO TID lisinopril 40 mg PO DAILY meloxicam 15 mg PO DAILY metformin ER 1,000 mg PO BID methotrexate sodium 20 mg (8 x 2.5 mg) PO QWEEK polyethylene glycol 3350 17 grams PO DAILY semaglutide (Ozempic) 1 mg subcut QWEEK spironolactone 25 mg PO DAILY triamcinolone acetonide 0.5% 1 appl topical BID HPI Comments Details: 43-year-old male with psoriasis and psoriatic arthritis returns for follow-up. Last visit patient's psoriasis was flaring up pretty severely, we discontinued his scar easy and started Sotyktu. He remains on methotrexate 20 mg weekly regularly. Patient states that his psoriasis did not improve it actually got worse. He continues to have diffuse psoriasis patches on his legs, chest, back, new rashes on his right elbow. Joints are doing reasonably well. Left knee is doing well since after the injection last visit. Initial history: This is a 41-year-old male with a past medical history of hypertension, dyslipidemia, diabetes mellitus and psoriasis of presents for evaluation of psoriasis and psoriatic arthritis. Per patient he was diagnosed with psoriasis more than 20 years ago and psoriatic arthritis about 10 years ago. He stated he was on multiple medications for psoriasis but does not know the specifics. He stated that topical creams did not help. He was on Enbrel many years ago which helped for some time then it stopped helping, Humira did not help. He was started on Taltz about a year ago and it helped for about 5-6 months then stopped helping. He was also on cyclosporin for a few months which did seem to help but stopped helping. Currently has bilateral knee pain and right wrist pain. He denies any significant back pain. He had a colonoscopy last year for rectal bleeding and was told he has internal hemorrhoids. Per patient he was not told he has IBD. No inflammatory back pain symptoms. No history suggestive of uveitis. 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 Review of Systems [facility] Reports arthralgias Skin/Breast Reports rash Physical Exam Vital Signs: Last Vital Signs Pulse 90 05/25/24 10:53 BP 134/80 05/25/24 10:53 Pulse Ox 99 05/25/24 10:53 Oxygen Delivery Method Room Air 05/25/24 10:53 BMI result Body Mass Index 43.5 Const General: cooperative, healthy appearing, comfortable and in distress mild Nutritional Appearance: obese Orientation/consciousness: patient oriented x3 Limitations: no limitations HEENT Head: Yes normocephalic and Yes atraumatic Mouth: moist mucous membranes Resp Effort & Inspection: normal respiratory effort and able to speak in complete sentences Skin Other: Numerous psoriasis patches on abdomen, chest, back. 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 No left knee swelling, warmth or tenderness or pain with flexion-extension No active synovitis today Assessment & Plan Assessment & Plan (1) Psoriasis: Comment: per patient: PSO dx around 1999 Enbrel secondary nonresponse Humira no response Taltz helped initially then stopped helping Cosentyx ineffective Cyclosporin not helpful Topical steroids not helpful Skyrizi started 01/08 effective DC 02/2024 2ry nonresponse Sotyktu 02/2024 DC 05/2024 ineffective MTX started 01/08 Code(s): L40.9 - Psoriasis, unspecified Category: Medical Plan: 43-year-old male with psoriasis and psoriatic arthritis presents for follow- up. He is on Sotyktu 6 mg daily and methotrexate 20 mg weekly and folic acid 1 mg daily. Last visit patient has psoriasis was flaring. He had developed secondary nonresponse to scar easy and discontinued scar easy and started him on Sotyktu. On exam patient is psoriasis is about the same. So take 2 was not effective. We will need to change DMARDs Discussed risks and benefits of Bimekizumab. Patient agreed to proceed. Will start prior authorization for Bimzelx I think at this time patient should see Dermatology for evaluation for light therapy. Will place referral Continue methotrexate 20 mg weekly for now. Continue folic acid 1 mg daily Labs before next visit in 3 months Infectious screening and hepatitis panel negative 2022 (2) Psoriatic arthritis: Code(s): L40.50 - Arthropathic psoriasis, unspecified Category: Medical Plan: No significant active synovitis today. Treatment for psoriasis will treat his psoriatic arthritis (3) High risk medication use: Code(s): Z79.899 - Other ocean transportation intermediary (current) drug therapy Category: Medical Plan: Monitor safety labs. Patient has been having transaminitis since before methotrexate was started. It seems to be fluctuating. It Is normal on most recent set of labs Plan I spent 26 minutes reviewing patient's chart, evaluating patient, ordering diagnostic workup, counseling patient and documenting in the chart Orders: Orders 2 Complete Blood Count Auto Diff 3 Months L40.50 - Arthropathic psoriasis, unspecified, Z79.899 - Other ocean transportation intermediary (current) drug therapy Comprehensive Met. Panel 3 Months L40.50 - Arthropathic psoriasis, unspecified, Z79.899 - Other ocean transportation intermediary (current) drug therapy Erythrocyte Sedimentation Rate 3 Months L40.50 - Arthropathic psoriasis, unspecified, Z79.899 - Other correction (current) drug therapy C Reactive Protein 3 Months L40.50 - Arthropathic psoriasis, unspecified, Z79.899 - Other ocean transportation intermediary (current) drug therapy Referrals 2 Dermatology Referral L40.9 - Psoriasis, unspecified Coding Level of Care Code Est Pt Level 4 (63092) Diagnoses Psoriasis L40.9 Psoriatic arthritis L40.50 High risk medication use Z79.899
[2024-05-25 10:53] VITALS: BP 134/80; PULSE 90; O2SAT 99; BMI 43.5
== END 2024-05-25 11:11 | disposition home or self-care (01) ==
LOC: HO.RHE 10:43
PROVIDERS: PCP Family Medicine; Visit Provider Student in an Organized Health Care Education/Training Program
DX: L40.9 Psoriasis, unspecified (principal); L40.50 Arthropathic psoriasis, unspecified; Z79.899 Other long term (current) drug therapy
CPT/HCPCS: 99214

== ENCOUNTER → 2024-05-25 10:43 | Outpatient (BNVA) | payer MEDICARE, MEDICAID, SELFPAY | PROVIDERS: PCP Family Medicine; Visit Provider Student in an Organized Health Care Education/Training Program | DX: L40.50 Arthropathic psoriasis, unspecified (principal); L40.9 Psoriasis, unspecified; Z79.631 Long term (current) use of antimetabolite agent; Z79.899 Other long term (current) drug therapy | CPT/HCPCS: 99212 ==

== ENCOUNTER 2024-08-30 11:28 | Outpatient (AMB) | payer MEDICARE, MEDICAID, SELFPAY ==
--- NOTE | 2024-08-30 11:30 | A.OFFVIS_ITS ---
Vital Signs 3 08/30/24 11:35 Height 5 ft 6 in Weight 264 lb 8.875 oz BMI 42.7 BP 115/68 Blood Pressure Location Rt brachial Position Sitting Pulse 71 Pulse Source Pulse Oximeter Pulse Oximetry (%) 98 Oxygen Delivery Method Room Air Intake Visit Reasons: PsA Intake Note: Patientv presents for PsA. Allergies codeine Allergy (Severe, Verified 08/30/24 11:34) Swelling Medication List - Last Reconciled 08/30/24 by Jasmin Edouard MD chlorthalidone 25 mg PO DAILY diclofenac sodium 1% (Voltaren Arthritis Pain) 4 grams topical QID folic acid 1 mg PO DAILY gabapentin 300 mg PO TID glipizide 5 mg PO BID hydrochlorothiazide 25 mg PO DAILY hydroxyzine HCl 25 mg PO TID PRN leflunomide orally; Take 1 tab once daily for 2 weeks then remain on 2 tabs daily lisinopril 40 mg PO DAILY meloxicam 15 mg PO DAILY metformin ER 1,000 mg PO BID polyethylene glycol 3350 17 grams PO DAILY semaglutide (Ozempic) 1 mg subcut QWEEK spironolactone 25 mg PO DAILY triamcinolone acetonide 0.1% 1 appl topical BID HPI Comments Details: 43-year-old male with psoriasis and psoriatic arthritis returns for follow-up. Patient has been on Bimzelx for the last 10 weeks or so without much improvement. His psoriasis is actually getting worse. He was diagnosed with shingles infection involving his right buttock and the back of his right thigh a few days ago and was prescribed Valtrex. The lesions are crusted over. Today he is complaining of left knee pain. The psoriasis rashes are extensive and itchy all over. Initial history: This is a 41-year-old male with a past medical history of hypertension, dyslipidemia, diabetes mellitus and psoriasis of presents for evaluation of psoriasis and psoriatic arthritis. Per patient he was diagnosed with psoriasis more than 20 years ago and psoriatic arthritis about 10 years ago. He stated he was on multiple medications for psoriasis but does not know the specifics. He stated that topical creams did not help. He was on Enbrel many years ago which helped for some time then it stopped helping, Humira did not help. He was started on Taltz about a year ago and it helped for about 5-6 months then stopped helping. He was also on cyclosporin for a few months which did seem to help but stopped helping. Currently has bilateral knee pain and right wrist pain. He denies any significant back pain. He had a colonoscopy last year for rectal bleeding and was told he has internal hemorrhoids. Per patient he was not told he has IBD. No inflammatory back pain symptoms. No history suggestive of uveitis. 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 Review of Systems [facility] [place] Reports arthralgias Skin/Breast Reports pruritus, Reports lesions and Reports rash Physical Exam Vital Signs: Last Vital Signs Pulse 71 08/30/24 11:35 BP 115/68 08/30/24 11:35 Pulse Ox 98 08/30/24 11:35 Oxygen Delivery Method Room Air 08/30/24 11:35 BMI result Body Mass Index 42.7 Const General: cooperative, healthy appearing, comfortable and in distress mild Nutritional Appearance: obese Orientation/consciousness: patient oriented x3 Limitations: no limitations HEENT Head: Yes normocephalic and Yes atraumatic Mouth: moist mucous membranes Resp Effort & Inspection: normal respiratory effort and able to speak in complete sentences Skin Other: Extensive psoriasis patches on forearms, umbilicus, bilateral lower extremities Shingles rash on the right buttock has crusted over Neuro General: patient oriented x3 Extrem Other: Left knee pain with any range of motion Office Procedures Joint Injection/Aspiration Joint Injection/Aspiration Primary Site: left knee Prep: site was prepped using sterile technique Injected: 40 mg of, Kenalog, with 1 mL of, 1% plain lidocaine and in the joint Approach Used: medial parapatellar Procedure: The patient tolerated the procedure well Coding Details: With the patient's consent the left knee was prepped with ChloraPrep and alcohol. The skin was anesthetized with 2 cc of 1% lidocaine. The knee was then injected with 40 mg of triamcinolone and 1 cc of I % lidocaine. The patient tolerated the procedure with no immediate adverse effects. 32951 - Large joint Procedure code (CPT) selection complete Assessment & Plan Assessment & Plan (1) Psoriasis: Comment: per patient: PSO dx around 1999 Enbrel secondary nonresponse Darcie no response Veda helped initially then stopped helping Cosentyx ineffective Cyclosporin not helpful Topical steroids not helpful Skyrizi started 01/08 effective DC 02/2024 2ry nonresponse Sotyktu 02/2024 DC 05/2024 ineffective MTX started 01/08. DC 06/2024 ineffective Bimzelx 06/2024- DC 08/2024 ineffective Code(s): L40.9 - Psoriasis, unspecified Category: Medical Plan: 43-year-old male with psoriasis and psoriatic arthritis presents for follow- up. He has been on Bimzelx injections for the last 10 weeks or so without any improvement. His psoriasis rashes are actually getting worse. He continues to active arthritis, involving his left knee today. With patient's consent, left knee was injected with Kenalog today. We will need to change biologic DMARD. Patient never received an infusion for his psoriasis. Cosentyx infusions were recently approved for treatment of psoriatic arthritis. Discussed risks and benefits of Cosentyx. Patient agreed to proceed. Will start prior authorization for Cosentyx infusion. Patient received Cosentyx in the past but it was an injection not an infusion. Discontinue methotrexate. Start leflunomide 10 mg daily for 2 weeks then increase to 20 mg daily. Labs today, and in one-month. If labs are normal, I will prescribe leflunomide 20 mg daily Hydroxyzine 25 mg p.o. p.r.n. itching Referred to Dermatology. States he has an appointment in November Infectious screening and hepatitis panel negative 2022 Labs before next visit in 3 months (2) Psoriatic arthritis: Code(s): L40.50 - Arthropathic psoriasis, unspecified Category: Medical Plan: As mentioned above, I will start prior authorization for Cosentyx infusions (3) High risk medication use: Code(s): Z79.899 - Other remote computer terminal operator (current) drug therapy Category: Medical Plan: Monitor safety labs. Side effects of Cosentyx were discussed with the patient in detail including increased risk of infection, demyelinating disease, reactivation of latent TB, possible increased risk of solid and skin tumors. Patient fully aware. Advised patient to seek medical care [facility] if patient has an infection and advised patient to stop the medication until the infection is resolved. (4) Shingles rash: Code(s): B02.9 - Zoster without complications Category: Medical Qualifiers: Herpes zoster complications: without complications Qualified Code(s): B 02.9 - Zoster without complications Plan: Lesions are crusted over on exam. He was treated with Valtrex Plan I spent 46 minutes reviewing patient's chart, evaluating patient, ordering diagnostic workup, counseling patient and documenting in the chart Orders: Orders 2 Complete Blood Count Auto Diff 3 Months L40.50 - Arthropathic psoriasis, unspecified, Z79.899 - Other remote computer terminal operator (current) drug therapy Comprehensive Met. Panel 3 Months L40.50 - Arthropathic psoriasis, unspecified, Z79.899 - Other remote computer terminal operator (current) drug therapy Erythrocyte Sedimentation Rate 3 Months L40.50 - Arthropathic psoriasis, unspecified, Z79.899 - Other remote computer terminal operator (current) drug therapy C Reactive Protein 3 Months L40.50 - Arthropathic psoriasis, unspecified, Z79.899 - Other remote computer terminal operator (current) drug therapy AMB Joint Injection/Aspiration Today L40.50 - Arthropathic psoriasis, unspecified Referrals 2 Infusion Center Notification L40.50 - Arthropathic psoriasis, unspecified, L40.9 - Psoriasis, unspecified Medications: New 2 leflunomide orally; Take 1 tab once daily for 2 weeks then remain on 2 tabs daily 60 tabs 0RF Changed 2 From hydroxyzine HCl 25 mg PO TID To hydroxyzine HCl 25 mg PO TID PRN 90 tabs 2RF itching Discontinued 2 methotrexate sodium Discontinued Reason: Doctor's Order 20 mg (8 x 2.5 mg) PO QWEEK 96 tabs 0RF Bimzelx Autoinjector (bimekizumab-bkzx) Discontinued Reason: Doctor's Order 320 mg (given as two 160 mg injections) once every 4 weeks for the first 16 weeks (5 doses), and then every 8 weeks thereafter 2 mL 5RF NS Coding Level of Care Code Est Pt Level 5 (96283) Complex EM visit Add On G2211 Diagnoses Psoriasis L40.9 Psoriatic arthritis L40.50 High risk medication use Z79.899 Herpes zoster without complication B02.9 Herpes zoster complications: without complications CPT Codes Coding - 52542 Large joint: 55475 - Large joint ([id number])
[2024-08-30 11:35] VITALS: BP 115/68; PULSE 71; O2SAT 98; BMI 42.7
== END 2024-08-30 12:07 | disposition home or self-care (01) ==
PROVIDERS: PCP Family Medicine; Visit Provider Student in an Organized Health Care Education/Training Program
DX: L40.50 Arthropathic psoriasis, unspecified (principal); L40.9 Psoriasis, unspecified; Z79.899 Other long term (current) drug therapy; B02.9 Zoster without complications; M17.12 Unilateral primary osteoarthritis, left knee
CPT/HCPCS: 20610; 99215

== ENCOUNTER 2024-11-10 10:30 | Outpatient (RCR) | payer MEDICARE, MEDICAID, SELFPAY ==
[2024-09-15 12:58] VITALS: BP 109/63; PULSE 71; TEMP 36.3; O2SAT 96
[2024-09-15] MEDS: SECUKINUMAB IV (13:56)
[2024-09-15] MEDS: SODIUM CHLORIDE 0.9% IV (13:56)
[2024-10-12 10:15] VITALS: BMI 43.4
[2024-10-12 10:18] VITALS: BP 138/55; PULSE 72; RESP 18; TEMP 36.1
[2024-10-12] MEDS: SECUKINUMAB IV (11:20)
[2024-10-12] MEDS: SODIUM CHLORIDE 0.9% IV (11:20)
[2024-10-12 11:25] LABS: Hematocrit 30.7 % (42.0-52.0); Hemoglobin 9.8 g/dl (14.0-18.0); Mean Corpuscular HGB Conc 31.9 g/dl (31.0-36.0); Mean Corpuscular Hemoglobin 25.9 pg (27.0-33.0); Mean Corpuscular Volume 81.2 fL (80.0-98.0); Mean Platelet Volume 8.9 fL (9.4-12.4); Platelet Count 312 X10*3/uL (160-400); Red Blood Count 3.78 X10*6/uL (4.60-5.80); Red Cell Distribution Width 16.1 % (11.0-16.0)
[2024-10-12 11:47] LABS: Alanine Aminotransferase 18 U/L (0-40); Albumin Level 3.4 g/dL (3.5-5.0); Alkaline Phosphatase 83 U/L (39-117); Anion Gap 14 (12-20); Aspartate Amino Transferase 21 U/L (5-37); Bilirubin Total 0.1 mg/dL (0.0-1.0); Blood Urea Nitrogen 10 mg/dL (9-16); C Reactive Protein 4.58 mg/dL (< or = 0.50); Calcium 8.7 mg/dL (8.4-10.2); Carbon Dioxide 28 mmol/L (22-29); Chloride 103 mmol/L (96-108); Estimated Glomerular Filt Rate > 60; Glucose Random 132 mg/dL (60-115); Potassium 3.8 mmol/L (3.3-5.1); Sodium 141 mmol/L (135-145); Total Protein 6.7 g/dL (6.5-8.0)
[2024-10-12 12:01] LABS: Erythrocyte Sedimentation Rate 30 MM/HR (0-15)
[2024-11-10 10:32] VITALS: BMI 42.8
[2024-11-10 10:46] VITALS: BP 135/78; PULSE 75; RESP 16; TEMP 36.6; O2SAT 98
[2024-11-10 11:06] LABS: Hematocrit 32.9 % (42.0-52.0); Hemoglobin 10.5 g/dl (14.0-18.0); Mean Corpuscular HGB Conc 31.9 g/dl (31.0-36.0); Mean Corpuscular Hemoglobin 26.5 pg (27.0-33.0); Mean Corpuscular Volume 83.1 fL (80.0-98.0); Mean Platelet Volume 8.9 fL (9.4-12.4); Platelet Count 299 X10*3/uL (160-400); Red Blood Count 3.96 X10*6/uL (4.60-5.80); White Blood Count 6.1 X10*3/uL (4.8-10.8)
[2024-11-10] MEDS: SECUKINUMAB IV (11:25)
[2024-11-10] MEDS: SODIUM CHLORIDE 0.9% IV (11:25)
[2024-11-10 11:33] LABS: Alanine Aminotransferase 24 U/L (0-40); Albumin Level 3.7 g/dL (3.5-5.0); Anion Gap 10 (12-20); Aspartate Amino Transferase 42 U/L (5-37); Bilirubin Total 0.1 mg/dL (0.0-1.0); Blood Urea Nitrogen 11 mg/dL (9-16); C Reactive Protein 2.01 mg/dL (< or = 0.50); Calcium 8.8 mg/dL (8.4-10.2); Carbon Dioxide 31 mmol/L (22-29); Chloride 101 mmol/L (96-108); Creatinine Clr Calc Pharmacy 145.7; Estimated Glomerular Filt Rate > 60; Glucose Random 175 mg/dL (60-115); Potassium 4.3 mmol/L (3.3-5.1); Sodium 138 mmol/L (135-145); Total Protein 7.3 g/dL (6.5-8.0)
[2024-11-10 11:53] LABS: Erythrocyte Sedimentation Rate 24 MM/HR (0-15)
[2024-11-10 11:58] LABS: Alkaline Phosphatase 80 U/L (39-117)
== END 2024-12-07 08:59 | disposition home or self-care (01) ==
LOC: HO.INF 10:30
PROVIDERS: Visit Provider Student in an Organized Health Care Education/Training Program
DX: L40.50 Arthropathic psoriasis, unspecified (principal)
CPT/HCPCS: 36415; 80053; 85027; 85652; 86140; 96365; J3247

== ENCOUNTER 2024-11-28 14:26 | Outpatient (AMB) | payer MEDICARE, MEDICAID, SELFPAY ==
[2024-11-28 14:39] VITALS: BP 134/80; PULSE 75; O2SAT 98; BMI 42.7
--- NOTE | 2024-11-28 14:39 | A.OFFVIS_ITS ---
Vital Signs 3 11/28/24 14:39 Height 5 ft 6 in Weight 264 lb 8.875 oz BMI 42.7 BP 134/80 Blood Pressure Location Lt brachial Pulse 75 Pulse Source Pulse Oximeter Pulse Oximetry (%) 98 Oxygen Delivery Method Room Air Intake Visit Reasons: PsA Intake Note: Patient last seen by Doctor Jasmin Edouard on 08/30/24. Presents today for PsA follow up and test results. Allergies codeine Allergy (Severe, Verified 11/28/24 14:40) Swelling Medication List - Last Reconciled 11/28/24 by Jasmin Edouard MD cephalexin 500 mg PO QID 5 days chlorthalidone 25 mg PO DAILY diclofenac sodium 1% (Voltaren Arthritis Pain) 4 grams topical QID folic acid 1 mg PO DAILY gabapentin 300 mg PO TID glipizide 5 mg PO BID hydrochlorothiazide 25 mg PO DAILY hydroxyzine HCl 25 mg PO TID PRN leflunomide 20 mg PO DAILY lisinopril 40 mg PO DAILY meloxicam 15 mg PO DAILY metformin ER 1,000 mg PO BID polyethylene glycol 3350 17 grams PO DAILY prednisone Take 4 tabs daily for 1 week then 3 tabs daily for 1 week then 2 tabs daily for 1 week then 1 tab daily for 1 week then stop semaglutide (Ozempic) 1 mg subcut QWEEK spironolactone 25 mg PO DAILY triamcinolone acetonide 0.1% 1 appl topical BID HPI Comments Details: 43-year-old male with psoriasis and psoriatic arthritis returns for follow-up. Patient has done 3 Cosentyx infusions so far. He did not take leflunomide as prescribed. He discontinued his methotrexate. He is doing much worse, his rashes all over his body are getting worse, joint pains especially of his hands and knees is worse, has been having more stiffness. He has noticed exquisite pain in the tip of his left ring finger Initial history: This is a 41-year-old male with a past medical history of hypertension, dyslipidemia, diabetes mellitus and psoriasis of presents for evaluation of psoriasis and psoriatic arthritis. Per patient he was diagnosed with psoriasis more than 20 years ago and psoriatic arthritis about 10 years ago. He stated he was on multiple medications for psoriasis but does not know the specifics. He stated that topical creams did not help. He was on Enbrel many years ago which helped for some time then it stopped helping, Humira did not help. He was started on Taltz about a year ago and it helped for about 5-6 months then stopped helping. He was also on cyclosporin for a few months which did seem to help but stopped helping. Currently has bilateral knee pain and right wrist pain. He denies any significant back pain. He had a colonoscopy last year for rectal bleeding and was told he has internal hemorrhoids. Per patient he was not told he has IBD. No inflammatory back pain symptoms. No history suggestive of uveitis. 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 Review of Systems [facility] Reports arthralgias Skin/Breast Reports pruritus, Reports lesions and Reports rash Physical Exam Vital Signs: Last Vital Signs Pulse 75 11/28/24 14:39 BP 134/80 11/28/24 14:39 Pulse Ox 98 11/28/24 14:39 Oxygen Delivery Method Room Air 11/28/24 14:39 BMI result Body Mass Index 42.7 Const General: cooperative, healthy appearing, comfortable and in distress mild Nutritional Appearance: obese Orientation/consciousness: patient oriented x3 Limitations: no limitations HEENT Head: Yes normocephalic and Yes atraumatic Mouth: moist mucous membranes Resp Effort & Inspection: normal respiratory effort and able to speak in complete sentences Skin Other: Neuro General: patient oriented x3 Extrem Other: Bilateral puffy fingers Bilateral reduced hand supervisor webbing strength Bilateral knee pain with flexion-extension bilaterally Bilateral knee warmth Acute paronychia left ring finger Assessment & Plan Assessment & Plan (1) Psoriasis: Comment: per patient: PSO dx around 1999 Enbrel secondary nonresponse Humira no response Taltz helped initially then stopped helping Cosentyx ineffective Cyclosporin not helpful Topical steroids not helpful Skyrizi started 01/08 effective DC 02/2024 2ry nonresponse Sotyktu 02/2024 DC 05/2024 ineffective MTX started 01/08. DC 06/2024 ineffective Bimzelx 06/2024- DC 08/2024 ineffective Cosentyx infusions 08/2024 received 3 doses, ineffective Code(s): L40.9 - Psoriasis, unspecified Category: Medical Plan: 43-year-old male with psoriasis and psoriatic arthritis presents for follow- up. Patient received 3 Cosentyx infusions so far. It has not been effective. Patient has psoriasis rashes worsening as well as his psoriatic arthritis. Patient discontinued his methotrexate but did not start leflunomide as prescribed Discontinue Cosentyx. We will need to change DMARDs. Discussed risks and benefits of Rinvoq. We discussed the black box warning regarding the association of CLEMENTE inhibitors with cardiovascular events, thromboembolic phenomenon and malignancy. Patient agreed to proceed. Will start prior authorization for Rinvoq Start leflunomide 20 mg daily. Prednisone taper for relief Referred to Dermatology Safety labs in 6 weeks and labs in 12 weeks before next visit (2) Psoriatic arthritis: Code(s): L40.50 - Arthropathic psoriasis, unspecified Category: Medical Plan: As mentioned above, start leflunomide and Rinvoq (3) High risk medication use: Code(s): Z79.899 - Other terminal makeup operator (current) drug therapy Category: Medical Plan: Monitor safety labs for leflunomide and Rinvoq Side effects of Rinvoq were discussed with the patient in detail including increased risk of infection, liver enzyme elevation, pancytopenia , reactivation of latent TB, possible increased risk of solid and skin tumors. Patient fully aware. Advised patient to seek medical care [facility] if patient has an infection and advised patient to stop the medication until the infection is resolved.' Patient has a vasectomy Plan I spent 36 minutes reviewing patient's chart, evaluating patient, ordering diagnostic workup, counseling patient and documenting in the chart Orders: Orders 2 Complete Blood Count Auto Diff 3 Months L40.9 - Psoriasis, unspecified, Z79.899 - Other senior living (current) drug therapy Comprehensive Met. Panel 3 Months L40.9 - Psoriasis, unspecified, Z79.899 - Other terminal makeup operator (current) drug therapy Erythrocyte Sedimentation Rate 3 Months L40.9 - Psoriasis, unspecified, Z79.899 - Other senior living (current) drug therapy Hepatitis A,B,C Profile 3 Months Z11.59 - Encounter for screening for other viral diseases T Spot TB 3 Months Z11.7 - Encounter for testing for latent tuberculosis infection Comprehensive Met. Panel 6 Weeks L40.50 - Arthropathic psoriasis, unspecified C Reactive Protein 3 Months L40.9 - Psoriasis, unspecified, Z79.899 - Other terminal makeup operator (current) drug therapy Complete Blood Count Auto Diff 6 Weeks L40.50 - Arthropathic psoriasis, unspecified Medications: New 2 cephalexin 500 mg PO QID 5 days 20 caps 0RF prednisone Take 4 tabs daily for 1 week then 3 tabs daily for 1 week then 2 tabs daily for 1 week then 1 tab daily for 1 week then stop 70 tabs 0RF upadacitinib ER (Rinvoq) 15 mg PO DAILY 30 tabs 3RF L40.9 - Psoriasis, unspecified Refilled 2 leflunomide 20 mg PO DAILY 90 tabs 0RF Coding Level of Care Code Est Pt Level 4 (00827) Complex EM visit Add On G2211 Diagnoses Psoriasis L40.9 Psoriatic arthritis L40.50 High risk medication use Z79.893
== END 2024-11-28 15:28 | disposition home or self-care (01) ==
PROVIDERS: PCP Family Medicine; Visit Provider Student in an Organized Health Care Education/Training Program
DX: L40.9 Psoriasis, unspecified (principal); L40.50 Arthropathic psoriasis, unspecified; Z79.899 Other long term (current) drug therapy
CPT/HCPCS: 99214; G2211

== ENCOUNTER → 2024-11-28 14:26 | Outpatient (BNVA) | payer MEDICARE, MEDICAID, SELFPAY | PROVIDERS: PCP Family Medicine; Visit Provider Student in an Organized Health Care Education/Training Program | DX: L40.50 Arthropathic psoriasis, unspecified (principal); L40.9 Psoriasis, unspecified; Z79.899 Other long term (current) drug therapy | CPT/HCPCS: 99212 ==

== ENCOUNTER 2025-01-03 13:22 | Outpatient (REF) | payer MEDICARE, MEDICAID, SELFPAY ==
[2025-01-03 13:34] LABS: MANUAL DIFF FLAG NO
[2025-01-03 13:59] LABS: Basophils Absolute Auto 0.1 X10*3/uL (0.0-0.2); Basophils Percent Auto 0.5 % (0-2); Eosinophils Absolute Auto 0.1 X10*3/uL (0.0-0.4); Hematocrit 38.4 % (42.0-52.0); Hemoglobin 12.2 g/dl (14.0-18.0); Imm Gran Abs Auto 0.04 X10*3/uL (0.00-0.03); Imm Gran Pct Auto 0.4 % (0.0-0.4); Lymphocytes Absolute Auto 1.6 X10*3/uL (1.2-4.9); Lymphocytes Percent Auto 16.3 % (20-40); Mean Corpuscular HGB Conc 31.8 g/dl (31.0-36.0); Mean Corpuscular Hemoglobin 25.5 pg (27.0-33.0); Mean Corpuscular Volume 80.2 fL (80.0-98.0); Mean Platelet Volume 8.9 fL (9.4-12.4); Monocytes Absolute Auto 0.6 X10*3/uL (0.1-1.2); Neutrophils Absolute Auto 7.3 x10*3/uL (2.0-8.3); Neutrophils Percent Auto 75.8 % (45-73); Platelet Count 391 X10*3/uL (160-400); Red Blood Count 4.79 X10*6/uL (4.60-5.80); Red Cell Distribution Width 15.1 % (11.0-16.0); White Blood Count 9.6 X10*3/uL (4.8-10.8)
--- OUTSIDE RECORDS SUMMARY | 2025-01-03 14:18 | XMS_ITS | Encounter Summary ---
Author Organization [employer] [facility] Address [address] [place] [address] Care Team Providers Care Rug Inspector Name Role Phone Isabell Mistry MD Primary Care Provider [phone] Encounter Details Date Type Department Care Team (Late st Contact Info) Description 01/03/2025 Orders Only GENERIC EXTERNAL DATA DEPARTMENT Provider, Generic External Data Social History Tobacco Use Types Packs/Day Years Used Date Smoking Tobacco: Never Passive Smoke Exposure: Never Smokeless Tobacco: Never Alcohol Use Standard Drinks/Week Comments Never 0 (1 standard drink = 0.6 oz pur e alcohol) Alcohol Answer Date Recorded Frequency of Alcohol Consumption Not on file 09/14/2024 Average Number of Drinks Not on file 024 Frequency of Binge Drinking Not on file 08/18 Score 0 09/14/2024 Depression Answer Date Recorded Patient Health Questionnaire-9 Score 11 09/14/2024 Patient Health Questionnaire-9 Score 11 09/14/2024 Last PHQ-9: Questionnaire Data Not on file 1 Housing Stability Answer Date Recorded What is your housing situation today? I have doc prince 12/29/[address] you li ve. Do you have problems with any of the following? None of the above 12/29/2024 Food Insecurity Answer Date Recorded Within the past 12 months, y ou worried that your food would run out before you got money to buy more: Often true 12/29/2024 Within the past 12 months,th e food you bought just didn't last and you didn't have enough money to get more: Often true Transportation Answer Date Recorded In the past 12 months, has l ack of transportation kept you from medical appts, meetings, work or from getting things needed for daily living? Yes, it has kept me from medical appointments or getting medications. 12/29/2024 Utilities Answer Date Recorded In the past 12 months, has t he electric, gas, oil or water company threatened to shut off services in your home? Yes 12/29/2024 Depression Answer Date Recorded Patient Health Questionnaire-2 Score 2 09/14/2024 Internet Access Answer Date Recorded Internet Access Q1 No 12/29/2024 Internet Access Q2 I cannot afford it 12/29/2024 Sex and Gender Information Value Date Recorded Sex Assigned at Male 09/15/2022 10:18 AM EDT Legal Sex Male 10:18 AM EDT Gender Identity Male 09/15/2022 10:18 AM EDT Sexual Orientation Straight 09/15/2022 10 :18 AM EDT documented as of this encounter Plan of Treatment Upcoming Encounters Date Type Department Care Team (Late st Contact Info) Description 01/13/2025 2:45 PM EST Office Visit [facility] [address] [place] [address] Antoinette Green FNP [address] [place] [address] documented as of this encounter Procedures Procedure Name Priority Date/Time Associated Diagnosis Comments CBC WITH AUTO DIFFERENTIAL Routine 01/03/2025 1:33 PM EST documented in this encounter Results * (ABNORMAL) CBC auto differential (01/03/2025 1:33 PM EST) White Blood Count 9.6 4.8 - 10.8 X10*3/uL [facility] Red Blood Count 4.79 4.60 - 5.80 X10*6/uL [facility] Hemoglobin 12.2(L) 14.0 - 18.0 g/dl [facility] Hematocrit 38.4(L) 42.0 - 52.0 % [facility] Mean Corpuscular Volume 80.2 80.0 - 98.0 fL [facility] Mean Corpuscular Hemoglobin 25.5(L) 27.0 - 33.0 pg [facility] Mean Corpuscular HGB Conc 31.8 31.0 - 36.0 g/dl [facility] Red Cell Distribution Width 15.1 11.0 - 16.0 % [facility] Platelet Count 391 160 - 400 X10*3/uL [facility] Mean Platelet Volume 8.9(L) 9.4 - 12.4 fL [facility] Neutrophils Percent Auto 75.8(H) 45 - 73 % [facility] Imm Gran Pct Auto 0.4 0.0 - 0.4 % [facility] Lymphocytes Percent Auto 16.3(L) 20 - 40 % [facility] Monocytes Percent Auto 6.0 2 - 11 % [facility] Eosinophils Percent Auto 1.0 0 - 4 % [facility] Basophils Percent Auto 0.5 0 - 2 % [facility] NRBC Pct Auto 0.0 0.0 - 0.2 /100WBC [facility] Neutrophils Absolute Auto 7.3 2.0 - 8.3 x10*3/uL [facility] Imm Gran Abs Auto 0.04(H) 0.00 - 0.03 X10*3/uL [facility] Lymphocytes Absolute Auto 1.6 1.2 - 4.9 X10*3/uL [facility] Monocytes Absolute Auto 0.6 0.1 - 1.2 X10*3/uL [facility] Eosinophils Absolute Auto 0.1 0.0 - 0.4 X10*3/uL [facility] Basophils Absolute Auto 0.1 0.0 - 0.2 X10*3/uL [facility] NRBC Abs Auto 0.000 0.0 - 0.012 X10*3/uL [facility] 01/03/2025 1:33 PM EST 01/03/2025 1:33 PM EST us Generic External Data Provider LAB BLOOD ORDERAB LES Final Result [facility] [address] [place] [address] [phone] documented in this encounter Visit Diagnoses Not on filedocumented in this encounter Additional Health Concerns Assessment Noted Time PHQ-9 Depression Total Score: 11 024 10:01 AM EDT documented as of this encounter Care Teams Rug Inspector Relationship Specialty Start Date End Date Isabell Mistry MD [address] [place] [address] PCP - General Family Medicine 10/21/22 documented as of this encounter
--- OUTSIDE RECORDS SUMMARY | 2025-01-03 14:18 | XMS_ITS | Encounter Summary ---
Author Organization [employer] [facility] Address [address] [place] [address] [address] [place] [address] Care Team Providers Care Squeezer Operator Name Role Phone Isabell Mistry MD Primary Care Provider [phone] Reason for Visit * Reason Onset Date Comments Nurse Triage 03/04/2024 Encounter Details Date Type Department Care Team ([facility] st Contact Info) Description 03/04/2024 Telephone [facility] [address] [place] [address] Isabell Mistry MD [address] [place] [address] Nurse Triage Social History Tobacco Use Types Packs/Day Years Used Date Smoking Tobacco: Never Passive Smoke Exposure: Never Smokeless Tobacco: Never Alcohol Use Standard Drinks/Week Comments Never 0 (1 standard drink = 0.6 oz pur e alcohol) Depression Answer Date Recorded Patient Health Questionnaire-9 Score 16 03/12/2023 Housing Stability Answer Date Recorded What is your housing situation today? I have docrinku prince 09/14/[address] you li ve. Do you have problems with any of the following? None of the above 09/14/2023 Food Insecurity Answer Date Recorded Within the past 12 months, y ou worried that your food would run out before you got money to buy more: Never True 09/14/2023 Within the past 12 months,th e food you bought just didn't last and you didn't have enough money to get more: Never True Transportation Answer Date Recorded In the past 12 months, has l ack of transportation kept you from medical appts, meetings, work or from getting things needed for daily living? No 09/14/2023 Utilities Answer Date Recorded In the past 12 months, has t he electric, gas, oil or water [employer] threatened to shut off services in your home? No 09/14/2023 Depression Answer Date Recorded Patient Health Questionnaire-2 Score 3 03/12/2023 Sex and Gender Information Value Date Recorded Sex Assigned at Male 09/15/2022 10:18 AM EDT Legal Sex Male 10:18 AM EDT Gender Identity Male 09/15/2022 10:18 AM EDT Sexual Orientation Straight 09/15/2022 10 :18 AM EDT documented as of this encounter Miscellaneous Notes * Telephone Encounter - Lucy Mcgee RN - 03/04/2024 11:17 AM EDT Call to Frankie Vásquez for triage re: High BS. Per pt just checked BS now and at 173mg/dL. Per pt fasting sugar this morning was 250mg/dL before meds and breakfast. Per pt last 2 weeks having intermittent dizziness and RAZO with blood sugar elevated. Per pt x 2 weeks over 200s. Per pt no pain with passing urine or fould odor. Per pt no vomiting or difficulty breathing. Pt not really following DM diet of low carb/sugar. Pt denies any symptoms currently of RAZO or dizziness. Reviewed DM diet withpatient ( limit white rice, bread, pasta and potatoes. Increase high fiber foods and protein, limitjuice and soda, increase water intake). Pt follow up apt r/s for sooner with PCP for next week. Pt advsed to call back on Thursday to see if any cancellations. Also to return call even over weekend to NTTS if BS >300s x 2 or sx of dizziness, RAZO dry mouth or increased urination occurs. Pt agrees. Sent to PCP as FYI. Follow up with pt PRN. Protocol Used: Diabetes - High Blood Sugar (Adult) Protocol-Based Disposition: Discuss with PCP and Callback by Nurse Today Future Appointments Date Time Provider Department Center 03/11/2024 10:30 AM Isabell Mistry MD [facility] Video visit offer not recorded Positive Triage Question: * Caller has NON-URGENT medication question about med that PCP prescribed and triager unable to answer question * All higher-acuity triage questions were negative Care Advice Discussed: * High Blood Sugar (Hyperglycemia) * Treatment - Liquids * Continue Insulin * Diabetes Pills * Daily Blood Glucose Goals * Ketone Testing * Reasons To Call Back - Blood glucose over 300 mg/dL (16.7 mmol/L), two or more times in a row. - Urine ketones become moderate or large (or more than 1+); if you check blood ketones, blood ketone test is over 1.4 mmol/L - Vomiting lasting over 4 hours or unable to drink any fluids - Rapid breathing occurs - You have more questions - You become worse * Telephone Encounter - Khloe Ocampo - 03/04/2024 11:06 AM EDT Symptom: High Blood Sugar - Caller Reports Outcome: Schedule an urgent appointment (within 1 hour) or talk to a nurse or provider soon Reason: Getting worse documented in this encounter Plan of Treatment Upcoming Encounters Date Type Department Care Team (Late st Contact Info) Description 01/13/2025 2:45 PM EST Office Visit [facility] [address] [place] [address] Antoinette Green FNP [address] [place] [address] documented as of this encounter Visit Diagnoses Not on filedocumented in this encounter Additional Health Concerns Assessment Noted Time PHQ-9 Depression Total Score: 16 023 1:26 PM EDT documented as of this encounter Care Teams Squeezer Operator Relationship Specialty Start Date End Date Isabell Mistry MD [address] [place] [address] PCP - General Family Medicine 10/21/22 documented as of this encounter
--- OUTSIDE RECORDS SUMMARY | 2025-01-03 14:18 | XMS_ITS | Encounter Summary ---
Author Organization [employer] [facility] Address [address] [place] [address] Care Team Providers Care Education Finance Processor Name Role Phone Isabell Mistry MD Primary Care Provider [phone] Reason for Visit * Reason Onset Date Comments Med Refill 05/23/2024 Encounter Details Date Type Department Care Team ([facility] st Contact Info) Description 05/23/2024 Telephone [facility] [address] [place] [address] Isabell Mistry MD [address] [place] [address] Med Refill Social History Tobacco Use Types Packs/Day Years [...] encounter Miscellaneous Notes * Telephone Encounter - Emi Tomas - 05/23/2024 2:17 PM EDT TC from pt requesting medication refill. Medications needing refill : Ozempic, 0.25 or 0.5 MG/DOSE, 2 MG/3ML solution pen-injector To be sent to: [facility] - [place], [place] - [address] [place] [address] documented in this encounter Plan of Treatment Upcoming Encounters Date Type Department Care Team (Late st Contact Info) Description 01/13/2025 2:45 PM EST Office Visit [facility] [address] [place] [address] Antoinette Green FNP [address] [place] [address] documented as of this encounter Visit Diagnoses Not on filedocumented in this encounter Additional Health Concerns Assessment Noted Time PHQ-9 Depression Total Score: 16 023 1:26 PM EDT documented as of this encounter Care Teams Education Finance Processor Relationship Specialty Start Date End Date Isabell Mistry MD [address] [place] [address] PCP - General Family Medicine 10/21/22 documented as of this encounter
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
--- OUTSIDE RECORDS SUMMARY | 2025-01-03 14:18 | XMS_ITS | Encounter Summary ---
Author Organization [employer] Address [address] [place] [address] Care Team Providers Care Pearl Technician Name Role Phone Isabell Mistry MD Primary Care Provider [phone] Encounter Details Date Type Department Care Team ([facility] st Contact Info) Description 12/13/[address] [facility] MEDICINE [address] [place] [address] Isabell Mistry MD [address] [place] [address] Social History Tobacco Use Types Packs/Day Years [...] your housing situation today? I have doc suresh 09/14/[address] you li [...] Recorded Patient Health Questionnaire-2 Score 2 09/14/2024 Sex and Gender Information Value Date Recorded Sex Assigned at Male 09/15/2022 10:18 AM EDT Legal Sex Male 10:18 AM EDT Gender Identity Male 09/15/2022 10:18 AM EDT Sexual Orientation Straight 09/15/2022 10 :18 AM EDT documented as of this encounter Miscellaneous Notes * Telephone Encounter - Alyse Oconnor - 12/13/2024 9:32 AM EST FYI to PCP - Patient unable to be contacted for MTM The pharmacy team has made >3 attempts to schedule patient for visit with pharmacy staff. At this time no further outreach attempts will be made until a new referral is sent. Voicemail/letter to patient today to notify them; they may also call in at later date if interestedin scheduling an appointment at a future time. documented in this encounter Plan of Treatment Upcoming Encounters Date Type Department Care Team ([facility] st Contact Info) Description 01/13/2025 2:45 PM EST Office Visit [facility] & PEDS [address] [place] [address] Antoinette Green FNP [address] [place] [address] documented as of this encounter Visit Diagnoses Not on filedocumented in this encounter Additional Health Concerns Assessment Noted Time PHQ-9 Depression Total Score: 11 024 10:01 AM EDT documented as of this encounter Care Teams Pearl Technician Relationship Specialty Start Date End Date Isabell Mistry MD [address] [place] [id number] PCP - General Family Medicine 10/21/22 documented as of this encounter
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
--- OUTSIDE RECORDS SUMMARY | 2025-01-03 14:18 | XMS_ITS | Encounter Summary ---
Author Organization [employer] Address [address] [place] [address] Care Team Providers Care Launch Engineer Name Role Phone Isabell Mistry MD Primary Care Provider [phone] Encounter Details Date Type Department Care Team ([facility] st Contact Info) Description 12/13/[address] [facility] MEDICINE [address] [place] [address] Isabell Mistry MD [address] [place] [address] Social History Tobacco Use Types Packs/Day Years [...] Telephone Encounter - Alyse Oconnor - 12/13/2024 9:31 AM EST Pharmacy [facility] attempted outreach call on 12/13/24 for Medication Therapy Management (MTM) appointment; however, unable to reach patient. LVM for patient to contact Alyse Oconnor at [phone]. documented in this encounter Plan of Treatment Upcoming Encounters Date Type Department Care Team (Late st Contact Info) Description 01/13/2025 2:45 PM EST Office Visit [facility] MED & PEDS [address] [place] [address] Antoinette Green FNP [address] [place] [address] documented as of this encounter Visit Diagnoses Not on filedocumented in this encounter Additional Health Concerns Assessment Noted Time PHQ-9 Depression Total Score: 11 024 10:01 AM EDT documented as of this encounter Care Teams Launch Engineer Relationship Specialty Start Date End Date Isabell Mistry MD [address] [place] [address] PCP - General Family Medicine 10/21/22 documented as of this encounter
--- OUTSIDE RECORDS SUMMARY | 2025-01-03 14:19 | XMS_ITS | Clinical Summary ---
Author Organization markedup [facility] Address [address] [place] [address] [address] [place] [address] Care Team Providers Care Plaster Die Maker Name Role Phone Isabell Mistry MD Primary Care Provider [phone] Allergies Active Allergy Reactions Criticality Noted Date Comments Freedom Cook 02/25/2021 Other reaction(s): throat swelling Medications * This document contains information received from the source organization and may not represent a complete record from that organization. hydrOXYzine HCl (Atarax) 25 MG tablet Take 1 tablet by mouth every 8 (eight) hours. 07/04/20 22 Active triamcinolone (Kenalog) 0.1 % ointmentIndication s:Psoriasis vulgaris Apply topically 2 times daily. 453.6 g 2 02/28/20 23 Active methotrexate 2.5 MG tablet 8 tablets once a week PO 01/07/20 23 Active Blood Glucose Monitoring Suppl (FreeStyle Lite) w/Device kit 1 Units 4 times daily. 1 kit 03/12/20 Active Alcohol Sheets (Alcoh-Wipe) sheet Take 1 tablet BID 200 each 11 03/12/20 23 Active glucose blood (FREESTYLE LITE) test strip 1 each by Other route every 12 (twelve) hours. 100 each 11 03/12/20 23 Active ceramides (CeraVe) moisturizing creamIndications:P soriasis vulgaris Apply 1 application topically if needed for dry skin. 453 g 11 03/12/20 23 Active polyethylene glycol, PEG, 3350 (Glycolax) 17 GM/SCOOP powder Take 17 g by mouth in the morning. 650 g 11 03/12/20 23 Active Blood Pressure kit 1 Units in the morning. 1 kit 03/12/20 23 Active meloxicam (Mobic) 15 MG tablet Take 15 mg by mouth in the morning. 06/11/20 23 Active Diclofenac Sodium 1 % gel APPLY 4 GRAMS TO KNEE, ANKLE, OR FOOT FOUR TIMES DAILY 06/11/20 23 Active folic acid (Folvite) 1 MG tablet Take by mouth in the morning. Active metFORMIN, OSM, (Fortamet) 1000 MG 24 hr tablet Take 1 tablet (1,000 mg) by mouth with breakfast and with evening meal. Do not crush, chew, or split. 180 tablet 1 07/02/20 23 Active Alcohol Swabs pads 07/02/20 23 Active spironolactone (Aldactone) 25 MG tablet Take 1 tablet (25 mg) by mouth in the morning. 90 tablet 1 08/10/20 23 Active senna-docusate sodium (Senokot-S) 8.6-50 MG tabletIndications: Constipation, unspecified constipation type Take 2 tablets by mouth if needed at bedtime for constipation. 180 tablet 1 08/10/20 23 Active hydrocortisone (Anusol-HC) 2.5 % rectal cream Insert into the rectum 2 times daily. 90 g 1 08/10/20 23 Active ibuprofen 600 MG tablet TAKE ONE TABLET THREE TIMES DAILY NEEDED FOR PAIN 01/27/20 24 Active Sotyktu 6 MG tablet 02/23/20 24 Active glipiZIDE (Glucotrol) 10 MG tablet Take 1 tablet (10 mg) by mouth before breakfast and before evening meal. 60 tablet 11 03/18/20 24 025 Active chlorthalidone (Hygroton) 25 MG tablet TAKE ONE TABLET BY MOUTH EVERY MORNING 90 tablet 1 04/21/20 24 Active lisinopril 40 MG tablet TAKE ONE TABLET BY MOUTH AT BEDTIME 90 tablet 1 08/17/20 24 Active Bimzelx 160 MG/ML solution auto-injector 08/05/20 24 Active hydroCHLOROthiazid e (HYDRODiuril) 25 MG tablet Take 25 mg by mouth in the morning. 05/23/20 24 Active leflunomide (Arava) 10 MG tablet TAKE ONE TABLET EVERY DAY FOR 2 WEEKS, THEN TAKE TWO TABLETS DAILY THEREAFTER 08/30/20 24 Active Semaglutide,0.25 or 0.5MG/DOS, (Ozempic, 0.25 or 0.5 MG/DOSE,) 2 MG/3ML solution pen-injector Inject 0.5 mg under the skin 1 (one) time per week. 3 mL 09/14/20 24 Active amLODIPine (Norvasc) 5 MG tablet TAKE ONE TABLET DAILY 90 tablet 1 09/22/20 24 Active gabapentin (Neurontin) 400 MG capsuleIndications :Diabetic polyneuropathy associated with type 2 diabetes mellitus (CMS/HCC) TAKE ONE CAPSULE THREE TIMES DAILY 90 capsule 2 09/27/20 24 Active cyclobenzaprine (Flexeril) 10 MG tablet Take 5-10 mg by mouth if needed in the morning, at noon, and at bedtime. 10/14/20 24 Active Active Problems Problem Noted Date Diagnosed Date Constipation 08/10/2023 Assessment & Plan (08/10/2023 11:34 AM EDT): Patient with intermittent constipation will be given Senna-Docusate Sodium tablets. History of epidermal inclusion cyst excision Rectal bleeding 07/30/2023 Assessment & Plan (07/30/2023 2:42 PM EDT): Patient with complaints of rectal bleeding will be referred to Gastro Palpitations 07/17/2023 Transaminitis 07/06/2023 Obstructive sleep apnea 10/21/2022 Assessment & Plan (10/21/2022 2:16 PM EST): Reports feels like his mask if ill fitted and not sleep well. Will send to sleep specialist. Bilateral chronic knee pain 10/21/2022 Primary hypertension 10/21/2022 Assessment & Plan (09/14/2024 10:12 AM EDT): Controlled. Continue current regimen. F/up in 3 months. F/up appt already setup Assessment & Plan (03/18/2024 4:46 PM EDT): Discussed current medications. Begin Amlodipine (Norvasc). F/u in 1 month. Relevant Medications Amlodipine (Norvasc) 5 MG Tablet Assessment & Plan (08/11/2023 7:57 AM EDT): Uncontrolled. Added spirolactone, f/up in 6-8 weeks. Will need bmp a next visit to assess if he gets electrolyte disturbances. Assessment & Plan (07/17/2023 3:57 PM EDT): Recommended to bring blood pressure readings on next visit. Follow up in 1 month Other hemorrhoids 10/21/2022 Assessment & Plan (08/11/2023 7:58 AM EDT): External hemorrhoid at 6 o'clock, provided treatment for constipation and also anusol. Printed referral to GI to r/o other causes of bleeding. Diabetic polyneuropathy asso ciated with type 2 diabetes mellitus 10/21/2022 Assessment & Plan (03/18/2024 4:42 PM EDT): Discontinue Trulicity and Ozempic. Referring to optical mechanic apprentice for further evaluation. Assessment & Plan (10/21/2022 2:18 PM EST): Reports gabapentin dosing not helpful, will incr dose to 400 mg TID and rtc in 1 month to re-eval. Needs microfilament testing Gynecomastia 10/08/2022 Class 3 severe obesity due t o excess calories with body mass index (BMI) of 40.0 to 44.9 in adult 10/08/2022 Assessment & Plan (03/12/2023 2:19 PM EDT): Will send labs and refer to bariatric surgery. Normocytic anemia 10/08/2022 Vitamin D deficiency 10/08/2022 Assessment & Plan (10/21/2022 2:20 PM EST): Not taking, will check levels Bipolar disorder 07/26/2021 Assessment & Plan (09/14/2024 10:12 AM EDT): Pt with hx of bipolar disorder is currently not on treatment for his mood. Declined medication at this moment. Will benefit of SGA and mood stabilizer. Did agree to speak with , called and they will reach out to him. Type 2 diabetes mellitus without complication Overview (10/21/2022): A1c: (Target </= 7.0): last 7.5% on 03/04/22 Microalbumin/Cr:Alb: 6 on 07/25/21 Lipids: Total Cholesterol 171, HDL 42, LDL 97, TG 220 on 07/25/21 Eye exam: due Dental: due PNA (PPSV, then PCV 13): due TDap/Td: due Foot exam/peripheral pulses: no loss of protective sensation 07/25/21 MIGUEL ANGEL/ARB: yes Statin: yes Assessment & Plan (09/14/2024 10:00 AM EDT): Current A1c 7,4%, reports side effects with trulicity feeling very weak and nausea, will want to try another GLP-1. Reports severe GI side effects with metformin. Currently on glizipide, will benefit of cardiovascular protection and weight loss benefits offered by semaglutide. Assessment & Plan (03/18/2024 4:49 PM EDT): Continue current medication. Discussed medications and refills. Relevant Medication Glipizide (Glucotrol) 10 MG Tablet Assessment & Plan (08/11/2023 7:59 AM EDT): Improved control. Cont monitoring. F/up in 3 mo Assessment & Plan (07/02/2023 9:31 AM EDT): POC a1c 8.5%. Glucose at time of visit with a reading of 159 mg/dL. Patient with discrepancies in medication list and medications brought in. Reviewed and updated at time of visit. Reports discontinued all medication given side effects. At this point will resend metformin and instructed to restart glipizide. Assessment & Plan (03/12/2023 2:19 PM EDT): Uncontrolled. Will send strips and advised patient to check glucose levels x2 a day. Will lower trulicity from 3 mg to 1.5mg and trial glipizide. Follow up within the month. Assessment & Plan (10/21/2022 2:19 PM EST): Cont current metformin and trulicity. Will send labs and assess control. Last a1c was 7.5% on 03/04/22. Psoriasis vulgaris 10/29/2018 Assessment & Plan (12/25/2022 2:21 PM EST): Pt with severe plaque psoriasis, under the care of Dr Vance and Dr Gaines ( Rheumatology ) . On today's exam he has a significant flare up. I contacted Dr. Edouard who told me he has asked pt to get basic blood work so he can start him on Methotrexate. Pt has yet to do the blood work. Plan: I have prompted patient to get blood work done as ordered by Dr. Edouard and to follow up with his office to start Methotrexate maxwell. Given the fact that he is diabetic and there is mild ozzing from one of his plaques I am concerned about bacterial super infection so I have taken a Culture and I have started empiric treatment with Doxy 100 mg po BID x 7 days. Pt will need to see Dr. Vance soon and he already has an schedule appointment with his PCP in December according to his . I have contacted our Pharmacy to refill his Furosemide 20 mg 1/2 tab po daily to help with his LE edema Encounters Date Type Department Care Team Description 01/03/2025 Orders Only GENERIC EXTERNAL DATA DEPARTMENT Provider, Generic External Data 12/29/2024 Patient Outreach [facility] [address] [place] [id number] Isabell Mistry MD Pre-visit Planning (SDOH screening positive and Tobacco screening negative) 12/13/[address] [address] Isabell Mistry MD 12/13/[address] [address] Isabell Mistry MD 12/07/[address] [address] Isabell Mistry MD Call Back Request 11/23/[address] [address] Isabell Mistry MD 10/27/2024 Telephone [facility] [address] [place] [address] Isabell Mistry MD CHART PREP from Last 3 Months Immunizations Name Administration Dates Next Due Influenza injectable quadrivalent preservative f ree 07/30/2023,12/29/2019 Influenza, IIV3, injectable 09/09/2011 Influenza, injectable, quadr ivalent, preservative free, pediatric 09/09/2011 Pfizer Covid-19 Vaccine 12+ 04/24/2021, 1 TD (adult), 2 Lf tetanus tox oid, preservative free, adsorbed 09/01/2006 Tdap 03/26/2012 Social History Tobacco Use Types Packs/Day Years Used Date Smoking Tobacco: Never Passive Smoke Exposure: Never Smokeless Tobacco: Never Tobacco Cessation:Counseling Given: [...] housing situation today? I have docrinku prince 12/29/[address] you [...] Orientation Straight 09/15/2022 10 :18 AM EDT Last Filed Vital Signs Vital Sign Reading Time Taken Comments Blood Pressure 134/80 09/14/2024 9:26 AM EDT Pulse 84 09/14/2024 9:26 AM EDT Temperature 36.7 ??C (98.1 ??F) 09/14/2024 9:26 AM ED T Respiratory Rate 20 09/14/2024 9:26 AM EDT Oxygen Saturation 98% 09/14/2024 9:26 AM EDT Inhaled Oxygen Concentration - - Weight 119 kg (261 lb 9.6 oz) 09/14/2024 9:26 AM EDT Height 167.6 cm (5' 6 ) 09/14/2024 9:26 AM EDT Body Mass Index 42.22 09/14/2024 9:26 AM EDT Plan of Treatment Upcoming Encounters Date Type Department Care Team (Late st Contact Info) Description 01/13/2025 2:45 PM EST Office Visit [facility] [address] [place] [address] Antoinette Green, PATO [address] [place] [address] Health Maintenance Due Date Last Done Comments CT Colonography 1979 Colonoscopy 1979 Colorectal Cancer Screening 1979 FIT DNA/Cologuard 1979 FIT 1979 FOBT 1979 HIV Screening 1979 Sigmoidoscopy 1979 Eye Exam 1989 Family Planning (PISQ) 1994 Hepatitis C Screening 1997 Hepatitis B Vaccines (1 of 3 - 19+ 3-dose series) 1998 Pneumococcal Vaccine: Pediatrics (0 to 5 Years) and At-Risk Patients (6 to 49) Years) (1 of 2 - PCV) 1998 DTaP/Tdap/Td Vaccines (2 - Td or Tdap) 03/26/2022 03/26/2012, 09/01/2006 Diabetes: Urine Protein Screening 07/02/2024 07/02/2023, 07/25/2021 Lipid Panel 07/02/2024 07/02/2023, 07/25/2021 COVID-19 Vaccine (3 - season) 2024 04/24/2021, 04/03/2021 Influenza Vaccine (#1) 2024 , 12/29/2019, 09/09/2011, Additional history exists Diabetes: Foot Exam 07/30/2024 07/30/2023, 07/30/2023, 07/30/2023, Additional history exists Diabetes: Hemoglobin A1C 12/15/2024 024, 03/18/2024, 07/02/2023, Additional history exists Depression Monitoring (PHQ-9) 03/15/2025 09/14/2024, 09/14/2024 Alcohol/Substance Use Screening 09/14/2025 09/14/2024 Depression Screening 09/14/2025 09/14/2024, 09/14/20 24 Tobacco Screening 09/14/2025 09/14/2024 SDOH Screening 12/29/2025 12/29/2024 Zoster Vaccines (1 of 2) 2029 RSV Patients and Patients Aged 60 years or older (1 - 1-dose 75+ series) 2054 HIB Vaccines Aged Out No longer eligi [...] patient's age to complete this topic Meningococcal Vaccine Aged Out No bryan lawrence eligible based on patient's age to complete this topic RSV under 20 months Aged Out No longe r eligible based on patient's age to complete this topic Rotavirus Vaccines Aged Out No longer eligible based on patient's age to complete this topic Procedures Procedure Name Priority Date/Time Associated Diagnosis Comments CBC WITH AUTO DIFFERENTIAL Routine 01/03/2025 1:33 PM EST POCT GLYCATED HEMOGLOBIN, TOTAL Routine 09/14/2024 10:19 AM EDT Type 2 diabetes mellitus without complication, without long-term current use of insulin ([facility]) ALBUMIN, RANDOM URINE W/CREATININE Routine 07/02/2023 9:38 AM EDT Diabetes mellitus due to underlying condition with hyperglycemia, unspecified whether custodial insulin use ([facility]) LIPID PANEL, STANDARD Routine 07/02/2023 9:38 AM EDT Diabetes mellitus due to underlying condition with hyperglycemia, unspecified whether custodial insulin use ([facility]) from Last 3 Months or Most Recently Relevant to Health Maintenance Results * (ABNORMAL) CBC auto differential (01/03/2025 1:33 PM EST) White Blood Count 9.6 4.8 - 10.8 X10*3/uL [facility] Red Blood Count 4.79 4.60 - 5.80 X10*6/uL [facility] Hemoglobin 12.2(L) 14.0 - 18.0 g/dl [facility] Hematocrit 38.4(L) 42.0 - 52.0 % [facility] Mean Corpuscular Volume 80.2 80.0 - 98.0 fL [facility] Mean Corpuscular Hemoglobin 25.5(L) 27.0 - 33.0 pg [facility] Mean Corpuscular HGB Conc 31.8 31.0 - 36.0 g/dl [facility] Red Cell Distribution Width 15.1 11.0 - 16.0 % [facility] Platelet Count 391 160 - 400 X10*3/uL [facility] Mean Platelet Volume 8.9(L) 9.4 - 12.4 fL [facility] Neutrophils Percent Auto 75.8(H) 45 - 73 % [facility] Imm Gran Pct Auto 0.4 0.0 - 0.4 % [facility] Lymphocytes Percent Auto 16.3(L) 20 - 40 % [facility] Monocytes Percent Auto 6.0 2 - 11 % [facility] Eosinophils Percent Auto 1.0 0 - 4 % [facility] Basophils Percent Auto 0.5 0 - 2 % [facility] NRBC Pct Auto 0.0 0.0 - 0.2 /100WBC [facility] Neutrophils Absolute Auto 7.3 2.0 - 8.3 x10*3/uL [facility] Imm Gran Abs Auto 0.04(H) 0.00 - 0.03 X10*3/uL [facility] Lymphocytes Absolute Auto 1.6 1.2 - 4.9 X10*3/uL [facility] Monocytes Absolute Auto 0.6 0.1 - 1.2 X10*3/uL [facility] Eosinophils Absolute Auto 0.1 0.0 - 0.4 X10*3/uL [facility] Basophils Absolute Auto 0.1 0.0 - 0.2 X10*3/uL [facility] NRBC Abs Auto 0.000 0.0 - 0.012 X10*3/uL [facility] 01/03/2025 1:33 PM EST 01/03/2025 1:33 PM EST us Generic External Data Provider LAB BLOOD ORDERAB LES Final Result [facility] [address] [place] [phone] * (ABNORMAL) POCT HGB A1C (09/14/2024 10:19 AM EDT) Hemoglobin A1C 7.4(A) 4.0 - 6.0 % QC Media Lot # [id number] Lot# Expiration Date Blood 09/14/2024 10:1 9 AM EDT us Isabell Mistry MD POINT OF CARE TEST ENTER/EDIT ORDERABLES Final Result * Albumin, Random Urine W/Creatinine (07/02/2023 9:38 AM EDT) Creatinine, Urine 144.40 mg/dL [facility] Microalbumin Urine 9.0 mg/L [facility] Microalbum Creatinine Ratio Ur 6.2 ug/mg cr [facility] Comment:Albumin/Creatinine R atio Reference Ranges: Normal: < 30 ug/mg creatinine Microalbuminuria: 30 - 300 ug/mg creatinineClinical Albuminuria: > 300 ug/mg creatinine Urine (Urine, Random) 07/02/2023 9:38 AM EDT 07/02/2023 2:16 PM EDT us Isabell Mistry MD LAB URINE ORDERABLES Final Re sult [facility] [address] [place] [address] [phone] * Lipid Panel, Standard (07/02/2023 9:38 AM EDT) Triglycerides 175 mg/dL [facility] Comment:Desirable Triglyceri de: less than 150 mg/dLBorderline High Triglyceride 150-199 mg/dLHigh Triglyceride: 200-499 mg/dLVery High Triglyceride: greater than or equal to 5OO mg/dL Cholesterol 144 mg/dL [facility] Comment:Desirable Cholestero l: less than 200 mg/dLBorderline High Cholesterol: 200-239 mg/dLHigh Cholesterol: greater than 239 mg/dL LDL Cholesterol Calculated 79 mg/dl [facility] Comment:Desirable LDL: less than 100 mg/dLNear Optimal/Above Optimal LDL: 110- 129 mg/dLBorderline High LDL: 130-159 mg/dLHigh LDL: 160-189 mg/dLVery High LDL: greater than or equal to 190 mg/dL HDL Cholesterol 30 mg/dL [facility] Comment:Desirable HDL: great er than 40 mg/dL Note: This HDL assay may give artificially low results in patients with liver disease. Blood Venous blood specimen / Unknown 07/02/2023 9:38 AM EDT 07/02/2023 2:11 PM EDT us Isabell Mistry MD LAB BLOOD ORDERABLES Final Re sult [facility] [address] [place] [phone] from Last 3 Months or Most Recently Relevant to Health Maintenance [place] [address] [place] [address] [place] [phone] Care Teams Plaster Die Maker Relationship Specialty Start Date End Date Isabell Mistry MD [address] [place] [address] PCP - General Family Medicine 10/21/22
--- OUTSIDE RECORDS SUMMARY | 2025-01-03 14:19 | XMS_ITS | Encounter Summary ---
Author Organization [employer] Address [address] [facility] [address] [place] [address] Care Team Providers Care Janitor Caretaker Name Role Phone Isabell Mistry MD Primary Care Provider [phone] Reason for Visit * Reason Onset Date Comments Call Back Request 12/07/2024 Encounter Details Date Type Department Care Team ([facility] Contact Info) Description 12/07/2024 Telephone [facility] [address] [place] [address] Isabell Mistry MD [address] [place] [address] Call Back Request Social History Tobacco Use Types Packs/Day Years [...] housing situation today? I have doc prince 09/14/[address] you [...] encounter Miscellaneous Notes * Telephone Encounter - Dawn Garcia RN - 2024 2:51 PM EST TC to pt in regards to message below. Pt spouse picked up in which nurse obtained verbal consent form pt. Informed spouse that best course of action would be for pt to come into office to sign new HIPAA forms. This would allow spouse to obtain med list to assist with obtaining services. Spouse agrees to plan. * Telephone Encounter - Wade Smith - 12/07/2024 3:48 PM EST Tc from Deborah requesting a callback in regards appointment request to go over med list and other concerns. Deborah [phone] documented in this encounter Plan of Treatment Upcoming Encounters Date Type Department Care Team ([facility] Contact Info) Description 01/13/2025 2:45 PM EST Office Visit [facility] [address] [place] [address] Antoinette Green FNP [address] [place] [address] documented as of this encounter Visit Diagnoses Not on filedocumented in this encounter Additional Health Concerns Assessment Noted Time PHQ-9 Depression Total Score: 11 024 10:01 AM EDT documented as of this encounter Care Teams Janitor Caretaker Relationship Specialty Start Date End Date Isabell Mistry MD [address] [place] [address] PCP - General Family Medicine 10/21/22 documented as of this encounter
[2025-01-03 14:44] LABS: Erythrocyte Sedimentation Rate 17 MM/HR (0-15)
[2025-01-03 15:16] LABS: Alanine Aminotransferase 28 U/L (0-40); Albumin Level 4.3 g/dL (3.5-5.0); Alkaline Phosphatase 89 U/L (39-117); Anion Gap 11 (12-20); Aspartate Amino Transferase 26 U/L (5-37); Bilirubin Total 0.2 mg/dL (0.0-1.0); Blood Urea Nitrogen 12 mg/dL (9-16); C Reactive Protein 1.91 mg/dL (< or = 0.50); Calcium 9.8 mg/dL (8.4-10.2); Carbon Dioxide 30 mmol/L (22-29); Chloride 100 mmol/L (96-108); Estimated Glomerular Filt Rate > 60; Glucose Random 92 mg/dL (60-115); Potassium 4.2 mmol/L (3.3-5.1); Sodium 137 mmol/L (135-145); Total Protein 8.7 g/dL (6.5-8.0)
== END 2025-01-03 13:23 | disposition home or self-care (01) ==
LOC: HO.LAB 13:22
PROVIDERS: PCP Family Medicine; Visit Provider Student in an Organized Health Care Education/Training Program
DX: L40.50 Arthropathic psoriasis, unspecified (principal); Z79.899 Other long term (current) drug therapy
CPT/HCPCS: 36415; 80053; 85025; 85652; 86140

== ENCOUNTER 2025-03-13 14:31 | Outpatient (REF) | payer MEDICARE, MEDICAID, SELFPAY ==
[2025-03-13 14:55] LABS: MANUAL DIFF FLAG NO
[2025-03-13 15:11] LABS: Basophils Absolute Auto 0.1 X10*3/uL (0.0-0.2); Basophils Percent Auto 0.6 % (0-2); Eosinophils Absolute Auto 0.1 X10*3/uL (0.0-0.4); Eosinophils Percent Auto 1.2 % (0-4); Hematocrit 35.8 % (42.0-52.0); Hemoglobin 11.7 g/dl (14.0-18.0); Imm Gran Abs Auto 0.03 X10*3/uL (0.00-0.03); Imm Gran Pct Auto 0.4 % (0.0-0.4); Lymphocytes Absolute Auto 1.3 X10*3/uL (1.2-4.9); Lymphocytes Percent Auto 15.7 % (20-40); Mean Corpuscular HGB Conc 32.7 g/dl (31.0-36.0); Mean Corpuscular Hemoglobin 26.7 pg (27.0-33.0); Mean Corpuscular Volume 81.5 fL (80.0-98.0); Mean Platelet Volume 8.7 fL (9.4-12.4); Monocytes Absolute Auto 0.4 X10*3/uL (0.1-1.2); Neutrophils Absolute Auto 6.3 x10*3/uL (2.0-8.3); Neutrophils Percent Auto 77.1 % (45-73); Platelet Count 363 X10*3/uL (160-400); Red Blood Count 4.39 X10*6/uL (4.60-5.80); Red Cell Distribution Width 15.9 % (11.0-16.0); White Blood Count 8.2 X10*3/uL (4.8-10.8)
[2025-03-13 15:44] LABS: Creatinine Urine 146.13 mg/dL; Microalbum/Creatinine Ratio Ur 6.8 ug/mg cr (<30)
[2025-03-13 15:52] LABS: Erythrocyte Sedimentation Rate 18 MM/HR (0-15)
[2025-03-13 16:16] LABS: Alanine Aminotransferase 28 U/L (0-40); Albumin Level 4.1 g/dL (3.5-5.0); Alkaline Phosphatase 87 U/L (39-117); Anion Gap 10 (12-20); Aspartate Amino Transferase 28 U/L (5-37); Bilirubin Total 0.2 mg/dL (0.0-1.0); Blood Urea Nitrogen 9 mg/dL (9-16); C Reactive Protein 1.32 mg/dL (< or = 0.50); Calcium 9.1 mg/dL (8.4-10.2); Carbon Dioxide 29 mmol/L (22-29); Chloride 104 mmol/L (96-108); Cholesterol 159 mg/dL (<200); Estimated Glomerular Filt Rate > 60; Glucose Random 96 mg/dL (60-115); HDL Cholesterol 34 mg/dL (>40); LDL Cholesterol Calculated 95 mg/dL (<100); Potassium 4.3 mmol/L (3.3-5.1); Sodium 139 mmol/L (135-145); Total Protein 7.8 g/dL (6.5-8.0); Triglycerides 150 mg/dL (<150)
[2025-03-13 16:31] LABS: TSH reflex Free T4 1.41 uIU/mL (0.32-4.0)
[2025-03-13 16:54] LABS: CT PCR NOT DETECTED (Not Detect.); NG PCR NOT DETECTED (Not Detect.)
--- OUTSIDE RECORDS SUMMARY | 2025-03-13 17:21 | XMS_ITS | Clinical Summary ---
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 triamcinolone (Kenalog) 0.1 % ointmentIndicatio ns:Psoriasis vulgaris Apply topically 2 times daily. 453.6 g 2 023 Active Blood Glucose Monitoring Suppl (FreeStyle Lite) w/Device kit 1 Units 4 times daily. 1 kit 023 Active Alcohol Sheets (Alcoh-Wipe) sheet Take 1 tablet BID 200 each 11 023 Active glucose blood (FREESTYLE LITE) test strip 1 each by Other route every 12 (twelve) hours. 100 each 11 023 Active ceramides (CeraVe) moisturizing creamIndications: Psoriasis vulgaris Apply 1 application topically if needed for dry skin. 453 g 11 023 Active polyethylene glycol, PEG, 3350 (Glycolax) 17 GM/SCOOP powder Take 17 g by mouth in the morning. 650 g 11 023 Active Blood Pressure kit 1 Units in the morning. 1 kit 023 Active Diclofenac Sodium 1 % gel APPLY 4 GRAMS TO KNEE, ANKLE, OR FOOT FOUR TIMES DAILY 023 Active folic acid (Folvite) 1 MG tablet Take by mouth in the morning. Active metFORMIN, OSM, (Fortamet) 1000 MG 24 hr tablet Take 1 tablet (1,000 mg) by mouth with breakfast and with evening meal. Do not crush, chew, or split. 180 tablet 1 023 Active Alcohol Swabs pads 023 Active senna-docusate sodium (Senokot-S) 8.6-50 MG tabletIndications :Constipation, unspecified constipation type Take 2 tablets by mouth if needed at bedtime for constipation. 180 tablet 1 023 Active hydrocortisone (Anusol-HC) 2.5 % rectal cream Insert into the rectum 2 times daily. 90 g 1 023 Active ibuprofen 600 MG tablet TAKE ONE TABLET THREE TIMES DAILY NEEDED FOR PAIN Active leflunomide (Arava) 10 MG tablet TAKE ONE TABLET EVERY DAY FOR 2 WEEKS, THEN TAKE TWO TABLETS DAILY THEREAFTER 024 Active amLODIPine (Norvasc) 5 MG tablet TAKE ONE TABLET DAILY 90 tablet 1 Active cyclobenzaprine (Flexeril) 10 MG tablet Take 5-10 mg by mouth if needed in the morning, at noon, and at bedtime. 024 Active Rinvoq 15 MG tablet sustained-release 24 hourIndications:P soriasis vulgaris 025 Active gabapentin (Neurontin) 400 MG capsuleIndication s:Diabetic polyneuropathy associated with type 2 diabetes mellitus (CMS/HCC) Take 1 capsule (400 mg) by mouth 3 times daily. 90 capsule 2 025 Active hydrOXYzine HCl (Atarax) 25 MG tabletIndications :Psoriasis vulgaris Take 1 tablet (25 mg) by mouth every 8 (eight) hours if needed for itching, allergies or anxiety. 60 tablet 2 025 Active lisinopril 40 MG tablet TAKE ONE TABLET BY MOUTH AT BEDTIME 90 tablet 1 025 Active semaglutide (Ozempic, 1 MG/DOSE,) 2 MG/1.5ML solution pen-injectorIndic ations:Type 2 Diabetes Mellitus Inject 1 mg under the skin 1 (one) time per week. 3 mL 1 025 Active ramelteon (Rozerem) 8 MG tabletIndications :Sleep difficulties Take 1 tablet (8 mg) by mouth at bedtime. 90 tablet 1 025 2025 Active hydroCHLOROthiazi de (HYDRODiuril) 25 MG tabletIndications :Primary hypertension Take 1 tablet (25 mg) by mouth in the morning. 90 tablet 1 Active glipiZIDE (Glucotrol) 10 MG tablet Take 1 tablet (10 mg) by mouth before breakfast and before evening meal. 60 tablet 11 024 2024 Discontinued(T herapy completed) hydroCHLOROthiazi de (HYDRODiuril) 25 MG tablet Take 25 mg by mouth in the morning. 024 2024 Discontinued(R eorder (will not trigger notification to Pharmacy)) Semaglutide,0.25 or 0.5MG/DOS, (Ozempic, 0.25 or 0.5 MG/DOSE,) 2 MG/3ML solution pen-injectorIndic ations:Type 2 diabetes mellitus without complication, without long-term current use of insulin ([facility]) Inject 0.5 mg under the skin 1 (one) time per week. 3 mL 025 2024 Discontinued chlorthalidone (Hygroton) 25 MG tablet TAKE ONE TABLET BY MOUTH EVERY MORNING 90 tablet 1 025 2024 Discontinued(T herapy completed) Active Problems Problem Noted Date Diagnosed Date Sleep difficulties 02/20/2025 Assessment & Plan (02/20/2025 3:35 PM EDT): -Difficulties with sleep onset and maintenance -Previous trials: Melatonin -Plan: Start ramelteon nightly. 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 -Information about how to request PADDING MACHINE OPERATOR evaluation provided on 01/14/25 Healthcare maintenance 01/14/2025 Overview (01/14/2025): Last comprehensive exam: 01/13/2025 Colonoscopy: Reports completed around 2019, records requested to determine appropriate follow-up interval. Assessment & Plan (02/20/2025 3:37 PM EDT): Encouraged to complete pending labs in 2 weeks Assessment & Plan (01/14/2025 3:35 PM EST): -Cardiopulmonary exam WNL -Encouraged healthy lifestyle habits including routine physical exercise and diet rich in fruits and vegetables Constipation 08/10/2023 Assessment & Plan (08/10/2023 11:34 AM EDT): Patient with intermittent constipation will be given Senna-Docusate Sodium tablets. History of epidermal inclusion cyst excision Rectal bleeding 07/30/2023 Assessment & Plan (02/20/2025 3:36 PM EDT): - History of rectal bleeding and hemorrhoids with previous colonoscopy (records not available) -Referred to GI for further eval and treatment, ED precautions sooner as needed Assessment & Plan (07/30/2023 2:42 PM EDT): Patient with complaints of rectal bleeding will be referred to Gastro Palpitations 07/17/2023 Transaminitis 07/06/2023 Assessment & Plan (01/14/2025 3:29 PM EST): -Repeat labs Obstructive sleep apnea 10/21/2022 Assessment & Plan (02/20/2025 3:35 PM EDT): - Currently with CPAP machine, although difficulties with correct fit. Would benefit from evaluation with sleep medicine specialist. -Referral placed to [facility] sleep medicine Assessment & Plan (01/14/2025 3:19 PM EST): - Currently with CPAP machine, although difficulties with correct fit. Would benefit from evaluation with sleep medicine specialist. He was previously referred in 2021, unclear if currently following with office. Will plan to further discuss during next appointment. Assessment & Plan (10/21/2022 2:16 PM EST): Reports feels like his mask if ill fitted and not sleep well. Will send to sleep specialist. Bilateral chronic knee pain 10/21/2022 Primary hypertension 10/21/2022 Assessment & Plan (02/20/2025 3:35 PM EDT): -Elevated in office today, suspect due to not taking blood pressure regimen yet today. -Encouraged to continue with medication regimen: Amlodipine 5 mg daily Lisinopril 40 mg daily Hydrochlorothiazide 25 mg daily -Encouraged to continue recording BP readings at home and bring to follow-up appointment in 4 weeks. Encouraged to bring medications from home as well as bring friend Deborah who has been helping him manage medical conditions if able -Lifestyle interventions including goal 150 minutes exercise weekly, as well as diet rich in vegetables and fiber. Assessment & Plan (01/14/2025 3:22 PM EST): -Elevated in office today, suspect due to not taking blood pressure regimen yet today. -Encouraged to continue with medication regimen: Amlodipine 5 mg daily Lisinopril 40 mg daily Hydrochlorothiazide 25 mg daily -Encouraged to continue recording BP readings at home and bring to follow-up appointment in 3 weeks. Encouraged to bring medications from home as well as bring friend Deborah who has been helping him manage medical conditions if able -Lifestyle interventions including goal 150 minutes exercise weekly, as well as diet rich in vegetables and fiber. Assessment & Plan (09/14/2024 10:12 AM EDT): [...] 2 diabetes mellitus 10/21/2022 Assessment & Plan (01/14/2025 3:18 PM EST): Referral to podiatry placed 01/13/2025 for assistance with toe nail care Continues with gabapentin 400 mg 3 times daily Assessment & Plan (03/18/2024 4:42 PM EDT): Discontinue Trulicity and Ozempic. Referring to informatics specialist for further evaluation. Assessment & Plan (10/21/2022 [...] levels Bipolar disorder 07/26/2021 Assessment & Plan (02/20/2025 3:38 PM EDT): History of bipolar disorder. Denies acute concerns with mental health. Request for BE. Will also refer to [facility] psych HOG CONFINEMENT SYSTEM MANAGER-Jamie?? Bates Assessment & Plan (01/14/2025 3:33 PM EST): History of bipolar disorder. Denies acute concerns with mental health. Reports on waiting list for therapist as well as consideration of psych prescriber. Assessment & Plan (09/14/2024 10:12 AM EDT): Pt with hx of bipolar disorder is currently not on treatment for his mood. Declined medication at this moment. Will benefit of SGA and mood stabilizer. Did agree to speak with , called and they will reach out to him. Type 2 diabetes mellitus without complication Overview (02/20/2025): Lab Results Component Value Date HGBA1C 6.5 01/13/2025 HGBA1C 7.4 (A) 09/14/2024 HGBA1C 8.5 (A) 03/18/2024 Lab Results Component Value Date TRIG 175 07/02/2023 CHOL 144 07/02/2023 LDLCHOLCAL 79 07/02/2023 HDL 30 07/02/2023 Lab Results Component Value Date MICROALBCREU 6.2 07/02/2023 Eye exam: Reports UTD on 01/13/2025 Foot exam: Referral to podiatry placed 01/13/25 Dental: Reports UTD on 01/13/2025 PNA: PCV20 Dec 2024 Tdap: last Dec 2024 ACEi/ARB: yes Statin: yes ASCVD: 6.7% ASA: no Medications: Metformin 1000 mg twice daily Ozempic 1 mg subcu weekly Lifestyle: Encouraged regular movement and aerobic exercise for improved glycemic control Encouraged daily foot checks Encouraged lean protein snacks and to avoid foods high in sugar and simple carbohydrates Treatment Goals: A1c goal: <7% FBG goal: <130 2 hour post prandial goal: <180 Assessment & Plan (02/20/2025 3:36 PM EDT): Discontinue glipizide Increase Ozempic to 1 mg subcutaneous weekly Assessment & Plan (01/14/2025 3:25 PM EST): - A1c well-controlled. Goal in future would be to initiate GLP-1 and titrate off glipizide. Will follow-up with PA team for Ozempic. Assessment & Plan (09/14/2024 10:00 AM EDT): [...] 03/04/22. Psoriasis vulgaris 10/29/2018 Assessment & Plan (01/14/2025 3:32 PM EST): History of severe plaque psoriasis Continue following with [facility] - Dr Gaines Previous medications: Methotrexate, Bimzelx injection, deucravacitinib Current reported regimen: Arava 20 mg daily, Rinvoq 15mg daily. Encourage to bring in med list/med bottles next appt Assessment & Plan (12/25/2022 2:21 PM EST): [...] to help with his LE edema Encounters * This document contains information received from the source organization and may not represent a complete record from that organization. Date Type Department Care Team Description 03/13/2025 Orders Only GENERIC EXTERNAL DATA DEPARTMENT Provider, Generic External Data 02/20/2025 10:00 AM EDT Office Visit [facility] [address] [place] [address] Antoinette Green FNP Type 2 diabetes mellitus without complication, without long-term current use of insulin (CMS/[facility]) (Primary Dx); Obstructive sleep apnea; Rectal bleeding; Other hemorrhoids; Primary hypertension; Sleep difficulties; Difficulty with activities of daily living; Healthcare maintenance; Bipolar affective disorder, currently depressed, moderate (CMS/HCC) 02/20/2025 Travel 02/16/2025 Telephone [facility] [address] [place] [address] Isabell Mistry MD Chart Prep 02/03/2025 Refill [facility] [address] [place] [address] Isabell Mistry MD 01/27/2025 Population Health Risk Score [facility] ([facility]) Department [address] [place] [address], [place] [address] Provider, Population Health Generic 01/17/2025 Orders Only [facility] [address] [place] [address] Whit Ha MD 01/13/2025 2:45 PM EST Office Visit [facility] [address] [place] [address] Antoinette Green FNP Type 2 diabetes mellitus without complication, without long-term current use of insulin (CMS/[facility]) (Primary Dx); Encounter for immunization; Diabetic polyneuropathy associated with type 2 diabetes mellitus (CMS/HCC); Healthcare maintenance; Encounter for screening for infections with a predominantly sexual mode of transmission; Psoriasis vulgaris; Obstructive sleep apnea; Primary hypertension; Dietary counseling; Exercise counseling; Difficulty with activities of daily living; Transaminitis; Bipolar affective disorder, currently depressed, moderate (CMS/HCC) 01/13/2025 Travel 01/11/2025 Telephone [facility] [address] [place] [address] Ashley Chavarria MA Chart Prep 01/03/2025 Orders Only GENERIC EXTERNAL DATA DEPARTMENT Provider, Generic External Data 12/29/2024 Patient Outreach [address] [address] Isabell Mistry MD Pre-visit Planning (SDOH screening positive and Tobacco screening negative) 12/13/[address] [address] Isabell Mistry MD 12/13/[address] [address] Isabell Mistry MD from Last 3 Months Immunizations Name Administration Dates Next Due Influenza injectable quadriv alent preservative free 07/30/2023,12/29/2019 Influenza, IIV3, injectable 09/09/2011 Influenza, injectable, quadr ivalent, preservative free, pediatric 09/09/2011 Influenza, seasonal, injecta ble, preservative free 01/13/2025 Pfizer Covid-19 Vaccine 12+ 01/13/2025,,04/03/2021 Pneumococcal Conjugate PCV 20 01/13/2025 TD (adult), 2 Lf tetanus tox oid, preservative free, adsorbed 09/01/2006 Tdap 01/13/2025,03/26/2012 Social History Tobacco Use Types Packs/Day Years [...] Answer Date Recorded Patient Health Questionnaire-9 Score 17 01/13/2025 Patient Health Questionnaire-9 Score 17 01/13/2025 Last PHQ-9: Questionnaire Data Not on file 0 01/13/2025 Housing Stability Answer Date Recorded What is [...] Answer Date Recorded Patient Health Questionnaire-2 Score 5 01/13/2025 Internet Access Answer Date Recorded Internet Access [...] Sign Reading Time Taken Comments Blood Pressure 166/92 02/20/2025 10:06 AM EDT Pulse 97 02/20/2025 10:06 AM EDT Temperature 37.1 ??C (98.7 ??F) 02/20/2025 10:06 AM E DT Respiratory Rate 20 02/20/2025 10:06 AM EDT Oxygen Saturation 98% 02/20/2025 10:06 AM EDT Inhaled Oxygen Concentration - - Weight 120 kg (264 lb 6.4 oz) 02/20/2025 10:06 A M EDT Height 170.2 cm (5' 7 ) 02/20/2025 10:06 AM EDT Body Mass Index 41.41 02/20/2025 10:06 AM EDT Plan of Treatment Upcoming Encounters Date Type Department Care Team (Late st Contact Info) Description 03/31/2025 3:15 PM EDT Office Visit [facility] [address] [place] [address] Antoinette Green FNP [address] [place] [address] Health Maintenance Due Date Last Done Comments CT Colonography 1979 FIT DNA/Cologuard 1979 FIT 1979 FOBT 1979 HIV Screening 1979 Sigmoidoscopy 1979 Eye Exam 1989 Family Planning (PISQ) 1994 Hepatitis C Screening 1997 Hepatitis B Vaccines (1 of 3 - 19+ 3-dose series) 1998 Diabetes: Foot Exam 07/30/2024 07/30/2023, 07/30/2023, 07/30/2023, Additional history exists Colonoscopy 06/07/2025 06/07/2020 Colorectal Cancer Screening 06/07/2025 Diabetes: Hemoglobin A1C 07/13/202501/13/2 025, 09/14/2024, 03/18/2024, Additional history exists Alcohol/Substance Use Screening 09/14/2025 09/14/2024 SDOH Screening 12/29/2025 12/29/2024 Depression Screening 01/13/2026 01/13/2025, 01/13/20 Tobacco Screening 01/13/2026 01/13/2025 Diabetes: Urine Protein Screening 03/13/2026 03/13/2025, 07/02/2023, 07/25/2021 Lipid Panel 03/13/2026 03/13/2025, 06/16, 07/25/2021 Zoster Vaccines (1 of 2) 2029 DTaP/Tdap/Td Vaccines (3 - Td or Tdap) 01/13/2035 01/13/2025, 03/26/2012, 09/01/2006 RSV Patients and Patients Aged 60 years or older (1 - 1-dose 75+ series) 2054 COVID-19 Vaccine Completed 01/13/2025, 07/2021, 04/03/2021 Influenza Vaccine Completed 01/13/2025, , 12/29/2019, Additional history exists Pneumococcal Vaccine: Pediatrics (0 to 5 Years) and At-Risk Patients (6 to 49) Years) Completed 01/13/2025 HIB Vaccines Aged Out No longer eligi [...] Procedure Name Priority Date/Time Associated Diagnosis Comments C-REACTIVE PROTEIN Routine 03/13/2025 2: 52 PM EDT CBC WITH AUTO DIFFERENTIAL Routine 03/13/2025 2:52 PM EDT Healthcare maintenance COMPREHENSIVE METABOLIC PANEL Routine 03/13/2025 2:52 PM EDT Healthcare maintenance TSH W/REFLEX TO FT4 Routine 03/13/2025 2 :52 PM EDT Healthcare maintenance LIPID PANEL, STANDARD Routine 03/13/2025 2:52 PM EDT Healthcare maintenance ALBUMIN, RANDOM URINE W/CREATININE Routine 03/13/2025 2:42 PM EDT Healthcare maintenance CHLAMYDIA/N. GONORRHOEAE RNA, TMA, UROGENITAL Routine 03/13/2025 2:42 PM EDT Healthcare maintenance Encounter for screening for infections with a predominantly sexual mode of transmission SED RATE BY MODIFIED WESTERGREN Routine 03/13/2025 2:36 PM EDT POCT GLUCOSE Routine 02/20/2025 10:23 AM EDT Type 2 diabetes mellitus without complication, without long-term current use of insulin ([facility]) POCT GLYCATED HEMOGLOBIN, TOTAL Routine 01/13/2025 2:04 PM EST Type 2 diabetes mellitus without complication, without long-term current use of insulin ([facility]) POCT GLUCOSE Routine 01/13/2025 2:03 PM EST Type 2 diabetes mellitus without complication, without long-term current use of insulin ([facility]) C-REACTIVE PROTEIN Routine 01/03/2025 1: 33 PM EST COMPREHENSIVE METABOLIC PANEL Routine 01/03/2025 1:33 PM EST SED RATE BY MODIFIED WESTERGREN Routine 01/03/2025 1:33 PM EST CBC WITH AUTO DIFFERENTIAL Routine 01/03/2025 1:33 PM EST HM COLONOSCOPY Routine 06/07/2020 10:13 AM EDT from Last 3 Months or Most Recently Relevant to Health Maintenance Results * TSH with Reflex to Free T4 (03/13/2025 2:52 PM EDT) TSH reflex Free T4 1.41 0.32 - 4.0 uIU/mL [facility] Blood 03/13/2025 2:52 PM EDT 03/13/2025 2:52 PM EDT Antoinette Green REPAIR WELDER LAB BLOOD ORDERABLES Final Res ult [facility] [address] [place] [address] [phone] * (ABNORMAL) CBC auto differential (03/13/2025 2:52 PM EDT) Only the most recent of2 resultswithin the time period is included. White Blood Count 8.2 4.8 - 10.8 X10*3/uL [facility] Red Blood Count 4.39(L) 4.60 - 5.80 X10*6/uL [facility] Hemoglobin 11.7(L) 14.0 - 18.0 g/dl [facility] Hematocrit 35.8(L) 42.0 - 52.0 % [facility] Mean Corpuscular Volume 81.5 80.0 - 98.0 fL [facility] Mean Corpuscular Hemoglobin 26.7(L) 27.0 - 33.0 pg [facility] Mean Corpuscular HGB Conc 32.7 31.0 - 36.0 g/dl [facility] Red Cell Distribution Width 15.9 11.0 - 16.0 % [facility] Platelet Count 363 160 - 400 X10*3/uL [facility] Mean Platelet Volume 8.7(L) 9.4 - 12.4 fL [facility] Neutrophils Percent Auto 77.1(H) 45 - 73 % [facility] Imm Gran Pct Auto 0.4 0.0 - 0.4 % [facility] Lymphocytes Percent Auto 15.7(L) 20 - 40 % [facility] Monocytes Percent Auto 5.0 2 - 11 % [facility] Eosinophils Percent Auto 1.2 0 - 4 % [facility] Basophils Percent Auto 0.6 0 - 2 % [facility] NRBC Pct Auto 0.0 0.0 - 0.2 /100WBC [facility] Neutrophils Absolute Auto 6.3 2.0 - 8.3 x10*3/uL [facility] Imm Gran Abs Auto 0.03 0.00 - 0.03 X10*3/uL [facility] Lymphocytes Absolute Auto 1.3 1.2 - 4.9 X10*3/uL [facility] Monocytes Absolute Auto 0.4 0.1 - 1.2 X10*3/uL [facility] Eosinophils Absolute Auto 0.1 0.0 - 0.4 X10*3/uL [facility] Basophils Absolute Auto 0.1 0.0 - 0.2 X10*3/uL [facility] NRBC Abs Auto 0.000 0.0 - 0.012 X10*3/uL [facility] Blood Venous blood specimen / Unknown 03/13/2025 2:52 PM EDT 03/13/2025 2:52 PM EDT us Antoinette Green REPAIR WELDER LAB BLOOD ORDERABLES Final Res ult Performing Organization Address [facility]/ZIP Co de Phone Number [facility] [address] [place] [address] [phone] * (ABNORMAL) C-reactive Protein (03/13/2025 2:52 PM EDT) Only the most recent of2 resultswithin the time period is included. C Reactive Protein 1.32(H) < or = 0.50 mg/dL [facility] 03/13/2025 2:52 PM EDT 03/13/2025 2:52 PM EDT us Generic External Data Provider LAB BLOOD ORDERAB LES Final Result [facility] [address] [place] [address] [phone] * (ABNORMAL) Lipid Panel, Standard (03/13/2025 2:52 PM EDT) Triglycerides 150(H) <150 mg/dL [facility] Comment:Desirable Triglyceri de: less than 150 mg/dLBorderline High Triglyceride 150-199 mg/dLHigh Triglyceride: 200-499 mg/dLVery High Triglyceride: greater than or equal to 5OO mg/dL Cholesterol 159 <200 mg/dL [facility] Comment:Desirable Cholestero l: less than 200 mg/dLBorderline High Cholesterol: 200-239 mg/dLHigh Cholesterol: greater than 239 mg/dL LDL Cholesterol Calculated 95 <100 mg/dL [facility] Comment:Desirable LDL: less than 100 mg/dLNear Optimal/Above Optimal LDL: 110- 129 mg/dLBorderline High LDL: 130-159 mg/dLHigh LDL: 160-189 mg/dLVery High LDL: greater than or equal to 190 mg/dL HDL Cholesterol 34(L) >40 mg/dL [facility] Comment:Desirable HDL: great er than 40 mg/dL Note: This HDL assay may give artificially low results in patients with liver disease. Blood Venous blood specimen / Unknown 03/13/2025 2:52 PM EDT 03/13/2025 2:52 PM EDT us Antoinette Green REPAIR WELDER LAB BLOOD ORDERABLES Final Res ult [facility] [address] [place] [address] [phone] * (ABNORMAL) Comprehensive Metabolic Panel (03/13/2025 2:52 PM EDT) Only the most recent of2 resultswithin the time period is included. Sodium 139 135 - 145 mmol/L [facility] Potassium 4.3 3.3 - 5.1 mmol/L [facility] Chloride 104 96 - 108 mmol/L [facility] Carbon Dioxide 29 22 - 29 mmol/L [facility] Anion Gap 10(L) 12 - 20 [facility] Urea Nitrogen (BUN) 9 9 - 16 mg/dL [facility] Creatinine, Serum 0.71 0.5 - 1.4 mg/dL [facility] Estimated Glomerular Filt Rate >60 [facility] Comment:Chronic Kidney Disea se: Estimated GFR < 60 mL/min/[id number] Kidney Disease: Estimated GFR < 15 mL/min/1.73m2 Glucose 96 60 - 115 mg/dL [facility] Calcium 9.1 8.4 - 10.2 mg/dL [facility] Bilirubin, Total 0.2 0.0 - 1.0 mg/dL [facility] Aspartate Amino Transferase 28 5 - 37 U/L [facility] Alanine Aminotransferase 28 0 - 40 U/L [facility] Total Protein 7.8 6.5 - 8.0 g/dL [facility] Albumin Level 4.1 3.5 - 5.0 g/dL [facility] Alkaline Phosphatase 87 39 - 117 U/L [facility] Blood Venous blood specimen / Unknown 03/13/2025 2:52 PM EDT 03/13/2025 2:52 PM EDT us Antoinette Green REPAIR WELDER LAB BLOOD ORDERABLES Final Res ult [facility] [address] [place] [phone] * Albumin, Random Urine W/Creatinine (03/13/2025 2:42 PM EDT) Creatinine, Urine 146.13 mg/dL [facility] Microalbumin Urine 10.0 mg/L [facility] Microalbum Creatinine Ratio Ur 6.8 <30 ug/mg cr [facility] Comment:Albumin/Creatinine R atio Reference Ranges: Normal: < 30 ug/mg creatinine Microalbuminuria: 30 - 300 ug/mg creatinineClinical Albuminuria: > 300 ug/mg creatinine Urine 03/13/2025 2:42 PM EDT 03/13/2025 3:02 PM EDT Antoinette Green [facility] URINE ORDERABLES Final Res ult [facility] [address] [place] [phone] * Chlamydia/N. Gonorrhoeae RNA, TMA, Urogenitial (03/13/2025 2:42 PM EDT) CT PCR NOT DETECTED Not Detect. [facility] Comment:A not detected test result does not exclude the possibilityof infection because test results can be affected byimproper specimen collection, concurrent antibiotic therapy,or the number of organisms in the specimen which may bebelow the sensitivity of the test. As with many diagnostictests, results from the Xpert CT/NG assay should beinterpreted in conjunction with other laboratory andclinical data available to the clinician.Xpert CT/NG performance has not been evaluated in patientsless than 14 years of age. The assay should not be used forthe evaluationof suspected sexual abuse or for other medico-legalindications. Additional testing is recommended in anycircumstance when false positive or false negative resultscould lead to adverse medical, social or psychologicalconsequences. NG PCR NOT DETECTED Not Detect. [facility] Comment:A not detected test result does not exclude the possibilityof infection because test results can be affected byimproper specimen collection, concurrent antibiotic therapy,or the number of organisms in the specimen which may bebelow the sensitivity of the test. As with many diagnostictests, results from the Xpert CT/NG assay should beinterpreted in conjunction with other laboratory andclinical data available to the clinician.Xpert CT/NG performance has not been evaluated in patientsless than 14 years of age. The assay should not be used forthe evaluationof suspected sexual abuse or for other medico-legalindications. Additional testing is recommended in anycircumstance when false positive or false negative resultscould lead to adverse medical, social or psychologicalconsequences. Urine (Urine, Random) 03/13/2025 2:42 PM EDT 03/13/2025 3:02 PM EDT Narrative [facility] - 03/13/2025 4:54 PM EDT Urine Antoinette [facility] MICROBIOLOGY - GENERAL ORD ERABLES Final Result Performing Organization Address City/[facility] Co de Phone Number [facility] [address] [place] [phone] * (ABNORMAL) Sed Rate by Modified Westergren (03/13/2025 2:36 PM EDT) Only the most recent of2 resultswithin the time period is included. Erythrocyte Sedimentation Rate 18(H) 0 - 15 MM/HR [facility] Comment:Patients with polycy themia and many hemoglobin abnormalitiesmay have depressed sed rates whereas patients with anemiamay have elevated sed rates. 03/13/2025 2:36 PM EDT 03/13/2025 3:24 PM EDT Generic External Data Provider LAB BLOOD ORDERAB LES Final Result Performing Organization Address [facility] Co de Phone Number [facility] [address] [place] [phone] * POCT Glucose (02/20/2025 10:23 AM EDT) Only the most recent of2 resultswithin the time period is included. Glucose Blood, POC 164 60 - 200 mg/dL QC Media Lot # [id number] Lot# Expiration Date [id number] Blood Capillary blood specimen / Unknown 02/20/2025 10:23 AM EDT Antoinette WHYTE POINT OF CARE TEST ENTER/EDIT ORDERABLES Final Result * (ABNORMAL) POCT HGB A1C (01/13/2025 2:04 PM EST) Hemoglobin A1C 6.5 4.0 - 6.0 % QC Media Lot # [id number] Lot# Expiration Date [id number] Blood 01/13/2025 2:04 PM EST Antoinette Green REPAIR WELDER POINT OF CARE TEST ENTER/EDIT ORDERABLES Final Result * Hm Colonoscopy (06/07/2020 10:13 AM EDT) Historical Provider HEALTH MAINTENANCE Final Result from Last 3 Months or Most Recently Relevant to Health Maintenance [place] [address] [place] [address] [place] [address] [place] [phone] Care Teams Hydroelectric Plant Electrical Engineer Relationship Specialty Start Date End Date Isabell Mistry MD [address] [place] [address] PCP - General Family Medicine 10/21/22
--- OUTSIDE RECORDS SUMMARY | 2025-03-13 17:21 | XMS_ITS | Clinical Summary ---
Author Organization [facility] Address [address] [place] [address] Phone Care Team Providers Care Nuclear Physicist Name Role Phone Isabell Mistry MD Primary Care Provider [phone] Allergies Active Allergy Reactions Criticality Noted Date Comments Codeine Anaphylaxis High 10/13/2024 Medications cyclobenzaprine (FLEXERIL) 10 mg tablet Take 0.5-1 tablets (5-10 mg total) by mouth 3 (three) times a day if needed for muscle spasms for up to 10 days. 15 tablet 10/14/2024 Active Medical History Medical History Date Comments Hypertension Arthritis Bipolar 2 disorder ([facility] V24, [facility] V28) Diabetes mellitus ([facility] V24, [facility] V28) Social History Tobacco Use Types Packs/Day Years [...] 10/13/2024 4:45 PM EST Plan of Treatment Upcoming Encounters Date Type Department Care Team (Late st Contact Info) Description 04/17/2025 1:45 PM EDT Consult Orthopedic Surgery - [place] [address] [phone] Antonino Eller, DPM [address] [phone] Health Maintenance Due Date Last Done Comments Diabetes: Annual Foot Exam 1989 Diabetes: Annual Retina Eye Exam 1989 Hepatitis B Vaccines (1 of 3 - 19+ 3-dose series) 1998 Pneumococcal Vaccine: Pediatrics (0 to 5 Years) and At-Risk Patients (6 to 64 Years) (1 of 2 - PCV) 1998 COVID-19 Vaccine (3 - Pfizer risk series) 05/22/2021 04/24/2021, 04/03/2021 DTaP,Tdap,and Td Vaccines (3 - Td or Tdap) 03/26/2022 03/26/2012, 09/01/2006 Colorectal Cancer Screening: Colonoscopy 10/15/2022 HIV Screening 10/15/2022 Hepatitis C Screening 10/15/2022 Medicare Annual Wellness Visit 10/15/2022 Social Influencers of Health Screening 10/15/2022 Diabetes: Annual Urine Albumin-Creatinine Ratio (uACR) 10/13/2024 Diabetes: Blood Sugar Contro l Test (HGBA1C) 03/15/2025 09/14/2024 Influenza Vaccine (Season Ended) 2025 07/30/2023, 12/29/2019, 09/09/2011 Diabetes: Annual GFR (Glomerular Filtration Rate) 08/30/2025 [...] age to complete this topic Meningococcal B Vaccine Aged Out No l onger eligible based on patient's age to complete this topic RSV Immunization Patients Under 20 months Aged Out No longer eligible b ased on patient's age to complete this topic Varicella Vaccines Aged Out No longer eligible based on patient's age to complete this topic Insurance MEDICARE [place] - [place] MEDICARE [place] - [place] Care Teams Nuclear Physicist Relationship Specialty Start Date End Date Isabell Mistry MD [address] [place] [address] PCP - General Family Medicine 02/02/25
--- OUTSIDE RECORDS SUMMARY | 2025-03-13 17:21 | XMS_ITS | Encounter Summary ---
Author Organization [facility] Address [address] [facility] 7t [place] [address] Care Team Providers Care Information Systems Planner Name Role Phone Isabell Mistry MD Primary Care Provider [phone] Reason for Visit * Reason Onset Date Comments Med Refill 05/23/2024 Encounter Details Date Type Department Care Team ([facility] st Contact Info) Description 05/23/[address] [facility] [address] [place] [address] Isabell Mistry MD [address] [place] [address] Med Refill Social History Tobacco Use Types [...] MG/3ML solution pen-injector To be sent to: [facility] - [place], [place] - [address] [place] [address] documented in this encounter Plan of Treatment Upcoming Encounters Date Type Department Care Team (Late st Contact Info) Description 03/31/2025 3:15 PM EDT Office Visit [facility] [address] [place] [address] Antoinette Green FNP [address] [place] [phone] documented as of this encounter Visit Diagnoses Not on filedocumented in this encounter Additional Health Concerns Assessment Noted Time PHQ-9 Depression Total Score: 16 023 1:26 PM EDT documented as of this encounter Care Teams Information Systems Planner Relationship Specialty Start Date End Date Isabell Mistry MD [address] [place] [address] PCP - General Family Medicine 10/21/22 documented as of this encounter
--- OUTSIDE RECORDS SUMMARY | 2025-03-13 17:21 | XMS_ITS | Encounter Summary ---
Author Organization [employer] Address [address] [place] [address] Care Team Providers Care Group Therapy Counselor Name Role Phone Isabell Mistyr MD Primary Care Provider [phone] Encounter Details Date Type Department Care Team (Late st Contact Info) Description 01/17/2025 Orders Only [facility] MED & PEDS [address] [place] [address] Provider, MD Whit Social History Tobacco Use Types Packs/Day Years [...] Description 03/31/2025 3:15 PM EDT Office Visit [facility] MED & PEDS [address] [place] [address] Antoinette Green FNP [address] [place] [address] documented as of this encounter Procedures Procedure Name Priority Date/Time Associated Diagnosis Comments HM COLONOSCOPY Routine 06/07/2020 10:13 AM EDT documented in this encounter Results * Hm Colonoscopy (06/07/2020 10:13 AM EDT) Historical Provider HEALTH MAINTENANCE Final Result documented in this encounter Visit Diagnoses Not on filedocumented in this encounter Additional Health Concerns Assessment Noted Time PHQ-9 Depression Total Score: 17 01/13/ 025 3:39 PM EST documented as of this encounter Care Teams Group Therapy Counselor Relationship Specialty Start Date End Date Isabell Mistry MD [address] [place] [address] PCP - General Family Medicine 10/21/22 documented as of this encounter
--- OUTSIDE RECORDS SUMMARY | 2025-03-13 17:21 | XMS_ITS | Encounter Summary ---
Author Organization [facility] Address [address] [place] [address] [address] [place] [address] Care Team Providers Care Otr Truck Driver Name Role Phone Isabell Mistry MD Primary Care Provider [phone] Reason for Visit * Reason Onset Date Comments Nurse Triage 03/04/2024 Encounter Details Date Type Department Care Team ([facility] st Contact Info) Description 03/04/2024 Telephone [facility] MED & PEDS [address] [place] [address] Isabell Mistry MD [address] [place] [address] Nurse Triage Social History Tobacco Use Types [...] t he electric, gas, oil or water [place] threatened to shut off services in your [...] carb/sugar. Pt denies any symptoms currently of RZAO or dizziness. Reviewed DM diet withpatient ( [...] Center 03/11/2024 10:30 AM Isabell Mistry MD [facility] Video visit offer not recorded Positive Triage [...] 3:15 PM EDT Office Visit [facility] [address] [place] [address] Antoinette Green FNP [address] [place] [address] documented as of this encounter Visit Diagnoses Not on filedocumented in this encounter Additional Health Concerns Assessment Noted Time PHQ-9 Depression Total Score: 16 03/12/ 023 1:26 PM EDT documented as of this encounter Care Teams Otr Truck Driver Relationship Specialty Start Date End Date Isabell Mistry MD [address] [place] [address] PCP - General Family Medicine 10/21/22 documented as of this encounter
--- OUTSIDE RECORDS SUMMARY | 2025-03-13 17:21 | XMS_ITS | Encounter Summary ---
Author Organization [facility] Address [address] [facility] [address] [place] [address] Care Team Providers Care Bit Bender Name Role Phone Isabell Mistry MD Primary Care Provider [phone] Encounter Details Date Type Department Care Team (Late st Contact Info) Description 03/13/2025 Orders Only GENERIC EXTERNAL DATA [...] Description 03/31/2025 3:15 PM EDT Office Visit [facility] MED & PEDS [address] [place] [address] Antoinette Green FNP [address] [place] [address] documented as of this encounter Procedures Procedure Name Priority Date/Time Associated Diagnosis Comments C-REACTIVE PROTEIN Routine 03/13/2025 2: 52 PM EDT SED RATE BY MODIFIED WESTERGREN Routine 03/13/2025 2:36 PM EDT documented in this encounter Results * (ABNORMAL) C-reactive Protein (03/13/2025 2:52 PM EDT) C Reactive Protein 1.32(H) < or = 0.50 mg/dL [facility] 03/13/2025 2:52 PM EDT 03/13/2025 2:52 PM EDT us Generic External Data Provider LAB BLOOD ORDERAB LES Final Result [facility] [address] [place] [phone] * (ABNORMAL) Sed Rate by Modified Leónergren (03/13/2025 2:36 PM EDT) Erythrocyte Sedimentation Rate 18(H) 0 - 15 MM/HR [facility] Comment:Patients with polycy themia and many hemoglobin abnormalitiesmay have depressed sed rates whereas patients with anemiamay have elevated sed rates. 03/13/2025 2:36 PM EDT 03/13/2025 3:24 PM EDT us Generic External Data Provider LAB BLOOD ORDERAB LES Final Result [facility] [address] [place] [phone] documented in this encounter Visit Diagnoses Not on filedocumented in this encounter Additional Health Concerns Assessment Noted Time PHQ-9 Depression Total Score: 17 025 3:39 PM EST documented as of this encounter Care Teams Bit Bender Relationship Specialty Start Date End Date Isabell Mistry MD [address] [place] [address] PCP - General Family Medicine 10/21/22 documented as of this encounter
[2025-03-14 08:43] LABS: HBS Num1 0.52 mIU/mL (0-7.99); HBsAGNum1 0.35 S/CO (0.00-0.99); Hepatitis A Antibody IgM 0.14 Index (0-0.79); Hepatitis B Core Antibody Nonreactive (Nonreactive); Hepatitis B Surface Antigen Negative (Negative); ~HepC Num1 0.09 S/CO (0.00-0.79); ~Hepatitis A Antibody IgM Nonreactive (Nonreactive); ~Hepatitis B Surface Antibody NONREACTIVE (Nonreactive); ~Hepatitis C Antibody Nonreactive (Nonreactive)
[2025-03-14 08:53] LABS: HBS Num1 0.43 mIU/mL (0-7.99); HBc Num1 0.09 S/CO (0.00-0.79); HBsAGNum1 0.42 S/CO (0.00-0.99); HIV AB/AG Nonreactive (Nonreactive); HIV Num 1 0.07 S/CO (0.00-0.99); Hepatitis B Core Antibody Nonreactive (Nonreactive); Hepatitis B Surface Antigen Negative (Negative); ~Hepatitis B Surface Antibody NONREACTIVE (Nonreactive)
[2025-03-14 14:39] LABS: RPR Rapid Plasma Reagin NON-REACTIVE (NON-REACTIVE)
[2025-03-14 17:39] LABS: HCV Log PCR <1.18 NOT DETECTED Log IU/mL (NOT DETECTED); HepC Viral Load <15 NOT DETECTED IU/mL (NOT DETECTED)
[2025-03-15 18:03] LABS: TS Negative Control Passed; TS Panel A 0; TS Panel B 0; TS Positive Control Passed; TSpotTB Negative (Negative)
== END 2025-03-13 14:32 | disposition home or self-care (01) ==
LOC: HO.LAB 14:31
PROVIDERS: Absent Provider Student in an Organized Health Care Education/Training Program; PCP Family Medicine; Visit Provider Registered Nurse
DX: Z00.00 Encounter for general adult medical examination without abnormal findings (principal); Z11.3 Encounter for screening for infections with a predominantly sexual mode of transmission; Z79.899 Other long term (current) drug therapy; L40.9 Psoriasis, unspecified; Z11.59 Encounter for screening for other viral diseases; Z11.7 Encounter for testing for latent tuberculosis infection; Z79.61 Long term (current) use of immunomodulator; Z79.620 Long term (current) use of immunosuppressive biologic; Z72.89 Other problems related to lifestyle
CPT/HCPCS: 36415; 80053; 80061; 82043; 82570; 84443; 85025; 85652; 86140; 86481; 86592; 86704; 86706; 86709; 86803; 87340; 87389; 87491; 87522; 87591; 99212

== ENCOUNTER 2025-03-13 15:03 | Outpatient (AMB) | payer MEDICARE, MEDICAID, SELFPAY ==
--- NOTE | 2025-03-13 15:22 | A.OFFVIS_ITS ---
Vital Signs 3 03/13/25 15:23 Height 5 ft 6 in Weight 242 lb 15.19 oz BMI 39.2 BP 134/72 Blood Pressure Location Lt brachial Position Sitting Pulse 85 Pulse Source Pulse Oximeter Pulse Oximetry (%) 99 Oxygen Delivery Method Room Air Intake Visit Reasons: PsA Intake Note: Patient is requesting refill if Rinvoq. Patient presents for follow up on PSA and lab review. He was last seen in the office on 11/28/[address] Edouard. Allergies codeine Allergy (Severe, Verified 03/13/25 15:24) Swelling Medication List - Last Reconciled 03/13/25 by Isabel Jean MD diclofenac sodium 1% (Voltaren Arthritis Pain) 4 grams topical QID gabapentin 300 mg PO TID glipizide 5 mg PO BID hydrochlorothiazide 25 mg PO DAILY hydroxyzine HCl 25 mg PO TID PRN leflunomide 20 mg PO DAILY lisinopril 40 mg PO DAILY meloxicam 15 mg PO DAILY metformin ER 1,000 mg PO BID polyethylene glycol 3350 17 grams PO DAILY semaglutide (Ozempic) 1 mg subcut QWEEK spironolactone 25 mg PO DAILY triamcinolone acetonide 0.1% 1 appl topical BID upadacitinib ER (Rinvoq) 15 mg PO DAILY HPI Comments Details: Patient is a 44-year-old male with hypertension, diabetes, depression with anxiety, bipolar disorder and psoriasis complicated by psoriatic arthritis here today for follow up Interval History: Patient last seen 11/28/[address] Edouard. At that time he was following up for his psoriatic arthritis. He had received 3 Cosentyx infusions. Not taking leflunomide and discontinued his methotrexate. Because of this he was doing much worse with rashes all over his body and joint pain including stiffness. He had severe psoriasis with psoriatic arthritis as evidenced by tenderness to palpation of his MCPs on exam and swelling. He was started on Rinvoq, given a prednisone taper and also started on leflunomide. Rinvoq has not had any improvement in his rash or joint pain Prednisone makes the psoriasis worse Rheumatologic History: per patient: PSO dx around 1999 Enbrel secondary nonresponse Humira no response Veda helped initially then stopped helping Cosentyx ineffective Cyclosporin not helpful Topical steroids not helpful Abhijeet started 2/23 effective DC 02/2024 2ry nonresponse Sotyktu 02/2024 DC 05/2024 ineffective MTX started 01/08. DC 06/2024 ineffective Bimzelx 06/2024- DC 08/2024 ineffective Cosentyx infusions 08/2024 received 3 doses, ineffective Initial history: This is a 41-year-old male with a past medical history of hypertension, dyslipidemia, diabetes mellitus and psoriasis of presents for evaluation of psoriasis and psoriatic arthritis. Per patient he was diagnosed with psoriasis more than 20 years ago and psoriatic arthritis about 10 years ago. He stated he was on multiple medications for psoriasis but does not know the specifics. He stated that topical creams did not help. He was on Enbrel many years ago which helped for some time then it stopped helping, Humira did not help. He was started on Taltz about a year ago and it helped for about 5-6 months then stopped helping. He was also on cyclosporin for a few months which did seem to help but stopped helping. Currently has bilateral knee pain and right wrist pain. He denies any significant back pain. He had a colonoscopy last year for rectal bleeding and was told he has internal hemorrhoids. Per patient he was not told he has IBD. No inflammatory back pain symptoms. No history suggestive of uveitis. 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 Review of Systems Const Details: Review of Systems Constitutional: Denies fever, chills, weight loss ENT: Denies vision changes, eye pain or eye redness, dental caries, dry mouth GI: Denies nausea, vomiting, diarrhea, abdominal pain, change in BM Pulm: Denies SOB, ANN, hemoptysis, wheezing Cards: Denies chest pain, palpitations Skin: Denies Raynaud's, rash, nail changes, photosensitivity, LAYER OFF: Denies headaches, weakness, paresthesias, recurrent falls MSK: as per HPI All other systems reviewed and are unremarkable except noted above Physical Exam Vital Signs: Last Vital Signs Pulse 85 03/13/25 15:23 BP 134/72 03/13/25 15:23 Pulse Ox 99 03/13/25 15:23 Oxygen Delivery Method Room Air 03/13/25 15:23 BMI result Body Mass Index 39.2 Vital signs reviewed Physical Examination CONSTITUITIONAL Patient alert and cooperative. Well appearing and in no apparent painful distress HEENT Conjunctiva and sclera clear. ?Pupils equal round and reactive to light. ?No lymphadenopathy. ? CHEST/RESPIRATORY SYSTEM Normal respiratory effort and able to speak in complete sentences. ?Clear to auscultation bilaterally. ?No crackles, rales, rhonchi, wheezes heard. CARDIAC SYSTEM Regular rate and rhythm. ?S1 and S2 heard no murmurs. ?Radial pulses intact bilaterally MSK Hands: ?Unable to close his hands. Synovitis noted to scattered MCPs and PIPs. Wrists: ?Full range of motion however tenderness to palpation of bilateral wrists Elbows: Full range of motion without pain. No tenderness, weakness, swelling, increased warmth or erythema. Shoulders: Full range of active range of motion without pain. No tenderness, weakness, swelling, increased warmth or erythema. Knees: ?Full range of motion. ?Tenderness to palpation bilaterally without swelling. Ankles: Full range of motion. ?No tenderness, swelling, increased warmth or erythema.? Feet: ?Positive squeeze test bilaterally Tender points:?No tenderness to palpation of the bilateral trapezius, supraspinatus, greater trochanters, anterior costochondral junctions, bilateral gluteal areas, bilateral suboccipital muscle insertions SKIN BSA 86% involving psoriatic palques Results Reviewed Results Reviewed: Laboratory Tests 01/03/25 03/13/25 03/13/25 13:33 14:36 14:52 WBC 8.2 RBC 4.39 L Hgb 11.7 L Hct 35.8 L Plt Count 363 ESR Pending Sodium 137 Potassium 4.2 Chloride 100 Carbon Dioxide 30 H BUN 12 Creatinine 0.67 AST 26 ALT 28 Alkaline Phosphatase 89 C-Reactive Protein 1.91 H HLA B27 negative Assessment & Plan Assessment & Plan (1) Psoriasis: Comment: per patient: PSO dx around 1999 Enbrel secondary nonresponse Humira no response Veda helped initially then stopped helping Cosentyx ineffective Cyclosporin not helpful Topical steroids not helpful Skyrizi started 01/08 effective DC 02/2024 2ry nonresponse Sotyktu 02/2024 DC 05/2024 ineffective MTX started 01/08. DC 06/2024 ineffective Bimzelx 06/2024- DC 08/2024 ineffective Cosentyx infusions 08/2024 received 3 doses, ineffective Code(s): L40.9 - Psoriasis, unspecified Category: Medical Plan: #PsO Patient is a 44-year-old male with severe psoriasis with psoriatic plaques covering about 80% body surface area. Has failed multiple medications including the most recent Rinvoq. We will try IL 23 inhibition with guselkumab (Tremfya). Would not continue prednisolone as this is known to cause guttate psoriasis Plan - Stop Rinvoq - Stop leflunomide - Stop prednisone - Start Guselkumab 100 mg at weeks 0, 4, and then every 8 weeks thereafter - Start Apremilast Initial: 10 mg in the morning on day 1. Titrate upward by additional 10 mg per day on days 2 to 5 as follows: Day 2: 10 mg twice daily; Day 3: 10 mg in the morning and 20 mg in the evening; Day 4: 20 mg twice daily; Day 5: 20 mg in the morning and 30 mg in the evening. Maintenance dose: 30 mg twice daily starting on day 6. - RTC 4 months - Labs before visit: CBC, CMP, ESR, CRP (2) Psoriatic arthritis: Code(s): L40.50 - Arthropathic psoriasis, unspecified Category: Medical Plan: #PsA Patient with psoriatic arthritis complicating his psoriasis. 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 Plan: #Long-term IL 23 Inhibitors: Guselkumab Risks and benefits of IL 23 inhibitors in the management of psoriatic arthritis and psoriasis discussed with the patient Benefits include improved psoriasis and psoriatic arthritis Risks include GI upset, injection site reactions, increased risk of fungal infections and other serious infections Plan I spent 45 minutes reviewing the record and labs, taking a history, examining the patient, discussing the treatment plan, ordering diagnostic work up and documenting in the medical record Orders: Orders 2 Complete Blood Count Auto Diff 4 Months L40.50 - Arthropathic psoriasis, unspecified, L40.9 - Psoriasis, unspecified Comprehensive Met. Panel 4 Months L40.50 - Arthropathic psoriasis, unspecified, L40.9 - Psoriasis, unspecified Erythrocyte Sedimentation Rate 4 Months L40.50 - Arthropathic psoriasis, unspecified, L40.9 - Psoriasis, unspecified C Reactive Protein 4 Months L40.50 - Arthropathic psoriasis, unspecified, L40.9 - Psoriasis, unspecified Medications: New 2 apremilast (Otezla Starter) PO PER PKG DIR 55 ea 0RF L40.50 - Arthropathic psoriasis, unspecified, L40.9 - Psoriasis, unspecified guselkumab 100 mg subcut Q8W 1 mL 3RF L40.50 - Arthropathic psoriasis, unspecified, L40.9 - Psoriasis, unspecified apremilast (Otezla) Start after the induction pack 30 mg PO BID 180 tabs 1RF L40.50 - Arthropathic psoriasis, unspecified, L40.9 - Psoriasis, unspecified guselkumab (Tremfya) 100 mg subcut Q4W 2 mL 0RF L40.50 - Arthropathic psoriasis, unspecified, L40.9 - Psoriasis, unspecified Discontinued 2 upadacitinib ER (Rinvoq) Discontinued Reason: Doctor's Order 15 mg PO DAILY 30 tabs 3RF L40.9 - Psoriasis, unspecified Coding Level of Care Code Est Pt Level 5 (15244) Complex EM visit Add On G2211 Diagnoses Psoriasis L40.9 Psoriatic arthritis L40.50 Long-term current use of apremilast Z79.61 Long-term current use of guselkumab Z79.620
[2025-03-13 15:23] VITALS: BP 134/72; PULSE 85; O2SAT 99; BMI 39.2
--- OUTSIDE RECORDS SUMMARY | 2025-03-13 17:56 | XMS_ITS | Encounter Summary ---
Author Organization [employer] Address [address] [place] [address] Care Team Providers Care Computer Hardware Developer Name Role Phone Isabell Mistry MD Primary Care Provider [phone] Encounter Details Date Type Department Care Team (Late st Contact Info) Description 01/17/2025 Orders Only [facility] MED & PEDS [address] [place] [address] Provider, MD Whit Social History Tobacco Use [...] Description 03/31/2025 3:15 PM EDT Office Visit [facility] [address] [place] [address] Antoinette Green FNP [address] [place] [address] documented as of this encounter Procedures Procedure [...] documented as of this encounter Care Teams Computer Hardware Developer Relationship Specialty Start Date End Date Isabell Mistry MD [address] [place] [address] PCP - General Family Medicine 10/21/22 documented as of this encounter
--- OUTSIDE RECORDS SUMMARY | 2025-03-13 17:56 | XMS_ITS | Clinical Summary ---
Author Organization [facility] Address [address] [place] [address] 7t [place] [address] Care Team Providers Care Layer Out Plate Glass Name Role Phone Isabell Mistry MD Primary Care Provider [phone] Allergies Active Allergy Reactions Criticality Noted Date [...] complication, without long-term current use of insulin ([facility]) Inject 0.5 mg under the skin 1 [...] & Plan (02/20/2025 3:37 PM EDT): - YARN TWISTER hours/qualification determination in process Assessment & Plan (01/14/2025 3:28 PM EST): -Difficulties primarily with iADLs and reminders for medications. -Information about how to request YARN TWISTER evaluation provided on 01/14/25 Healthcare maintenance 01/14/2025 [...] with sleep medicine specialist. -Referral placed to [facility] sleep medicine Assessment & Plan (01/14/2025 3:19 [...] EDT): Discontinue Trulicity and Ozempic. Referring to tax accounting assistant for further evaluation. Assessment & Plan (10/21/2022 [...] Request for BE. Will also refer to [facility] psych PERSONNEL CONSULTANT-Jamie?? Bates Assessment & Plan (01/14/2025 3:33 PM [...] of severe plaque psoriasis Continue following with [facility] [place] Rheumatology - Dr Gaines Previous medications: Methotrexate, Bimzelx injection, deucravacitinib Current reported regimen: Arava 20 mg daily, Rinvoq 15mg daily. Encourage to bring in med list/med bottles next appt Assessment & Plan (12/25/2022 2:21 PM EST): Pt with severe plaque psoriasis, under the care of Dr Vnace and Dr Gaines ( Rheumatology ) . [...] Data 02/20/2025 10:00 AM EDT Office Visit [facility] [address] [place] [address] Antoinette Green FNP Type 2 diabetes mellitus without complication, without long-term current use of insulin (CMS/[facility]) (Primary Dx); Obstructive sleep apnea; Rectal bleeding; Other hemorrhoids; Primary hypertension; Sleep difficulties; Difficulty with activities of daily living; Healthcare maintenance; Bipolar affective disorder, currently depressed, moderate (CMS/HCC) 02/20/2025 Travel 02/16/2025 Telephone [facility] [address] [place] [address] Isabell Mistry MD Chart Prep 02/03/2025 Refill [facility] [address] [place] [address] Isabell Mistry MD 01/27/2025 Population Health Risk Score [facility] ([facility] Department [address] [place] [address], [place] [address] Provider, Population Health Generic 01/17/2025 Orders Only [facility] [address] [place] [address] Whit Ha MD 01/13/2025 2:45 PM EST Office Visit [facility] [address] [place] [address] Antoinette Green FNP Type 2 diabetes mellitus without complication, without long-term current use of insulin (CMS/[facility]) (Primary Dx); Encounter for immunization; Diabetic polyneuropathy associated with type 2 diabetes mellitus (CMS/HCC); Healthcare maintenance; Encounter for screening for infections with a predominantly sexual mode of transmission; Psoriasis vulgaris; Obstructive sleep apnea; Primary hypertension; Dietary counseling; Exercise counseling; Difficulty with activities of daily living; Transaminitis; Bipolar affective disorder, currently depressed, moderate (CMS/HCC) 01/13/2025 Travel 01/11/2025 Telephone [facility] [address] [place] [address] Ashley Chavarria MA Chart Prep 01/03/2025 Orders Only GENERIC EXTERNAL DATA DEPARTMENT Provider, Generic External Data 12/29/2024 Patient Outreach [address] [address] Isabell Mistry MD Pre-visit Planning (SDOH screening positive and Tobacco screening negative) 12/13/[address] [address] Isabell Mistry MD 12/13/[address] [address] Isabell Mistry MD from Last 3 Months [...] Description 03/31/2025 3:15 PM EDT Office Visit [facility] PEDS [address] [place] [address] Antoinette Green FNP [address] [place] [address] Health Maintenance Due Date Last Done Comments [...] complication, without long-term current use of insulin ([facility]) POCT GLYCATED HEMOGLOBIN, TOTAL Routine 01/13/2025 2:04 PM EST Type 2 diabetes mellitus without complication, without long-term current use of insulin ([facility]) POCT GLUCOSE Routine 01/13/2025 2:03 PM EST Type 2 diabetes mellitus without complication, without long-term current use of insulin ([facility]) C-REACTIVE PROTEIN Routine 01/03/2025 1: 33 PM [...] Free T4 1.41 0.32 - 4.0 uIU/mL [facility] Blood 03/13/2025 2:52 PM EDT 03/13/2025 2:52 PM EDT Antoinette Green CALL CENTER TEAM LEADER LAB BLOOD ORDERABLES Final Res ult [facility] [address] [place] [address] [phone] * (ABNORMAL) CBC auto differential (03/13/2025 2:52 PM EDT) Only the most recent of2 resultswithin the time period is included. White Blood Count 8.2 4.8 - 10.8 X10*3/uL [facility] Red Blood Count 4.39(L) 4.60 - 5.80 X10*6/uL [facility] Hemoglobin 11.7(L) 14.0 - 18.0 g/dl [facility] Hematocrit 35.8(L) 42.0 - 52.0 % [facility] Mean Corpuscular Volume 81.5 80.0 - 98.0 fL [facility] Mean Corpuscular Hemoglobin 26.7(L) 27.0 - 33.0 pg [facility] Mean Corpuscular HGB Conc 32.7 31.0 - 36.0 g/dl [facility] Red Cell Distribution Width 15.9 11.0 - 16.0 % [facility] Platelet Count 363 160 - 400 X10*3/uL [facility] Mean Platelet Volume 8.7(L) 9.4 - 12.4 fL [facility] Neutrophils Percent Auto 77.1(H) 45 - 73 % [facility] Imm Gran Pct Auto 0.4 0.0 - 0.4 % [facility] Lymphocytes Percent Auto 15.7(L) 20 - 40 % [facility] Monocytes Percent Auto 5.0 2 - 11 % [facility] Eosinophils Percent Auto 1.2 0 - 4 % [facility] Basophils Percent Auto 0.6 0 - 2 % [facility] NRBC Pct Auto 0.0 0.0 - 0.2 /100WBC [facility] Neutrophils Absolute Auto 6.3 2.0 - 8.3 x10*3/uL [facility] Imm Gran Abs Auto 0.03 0.00 - 0.03 X10*3/uL [facility] Lymphocytes Absolute Auto 1.3 1.2 - 4.9 X10*3/uL [facility] Monocytes Absolute Auto 0.4 0.1 - 1.2 X10*3/uL [facility] Eosinophils Absolute Auto 0.1 0.0 - 0.4 X10*3/uL [facility] Basophils Absolute Auto 0.1 0.0 - 0.2 X10*3/uL [facility] NRBC Abs Auto 0.000 0.0 - 0.012 X10*3/uL [facility] Blood Venous blood specimen / Unknown 03/13/2025 2:52 PM EDT 03/13/2025 2:52 PM EDT us Antoinette Green CALL CENTER TEAM LEADER LAB BLOOD ORDERABLES Final Res ult Performing Organization Address [facility]/ZIP Co de Phone Number [facility] [address] [place] [address] [phone] * (ABNORMAL) C-reactive Protein (03/13/2025 2:52 PM EDT) Only the most recent of2 resultswithin the time period is included. C Reactive Protein 1.32(H) < or = 0.50 mg/dL [facility] 03/13/2025 2:52 PM EDT 03/13/2025 2:52 PM EDT us Generic External Data Provider LAB BLOOD ORDERAB LES Final Result [facility] [address] [place] [address] [phone] * (ABNORMAL) Lipid Panel, Standard (03/13/2025 2:52 PM EDT) Triglycerides 150(H) <150 mg/dL [facility] Comment:Desirable Triglyceri de: less than 150 mg/dLBorderline High Triglyceride 150-199 mg/dLHigh Triglyceride: 200-499 mg/dLVery High Triglyceride: greater than or equal to 5OO mg/dL Cholesterol 159 <200 mg/dL [facility] Comment:Desirable Cholestero l: less than 200 mg/dLBorderline High Cholesterol: 200-239 mg/dLHigh Cholesterol: greater than 239 mg/dL LDL Cholesterol Calculated 95 <100 mg/dL [facility] Comment:Desirable LDL: less than 100 mg/dLNear Optimal/Above Optimal LDL: 110- 129 mg/dLBorderline High LDL: 130-159 mg/dLHigh LDL: 160-189 mg/dLVery High LDL: greater than or equal to 190 mg/dL HDL Cholesterol 34(L) >40 mg/dL [facility] Comment:Desirable HDL: great er than 40 mg/dL Note: This HDL assay may give artificially low results in patients with liver disease. Blood Venous blood specimen / Unknown 03/13/2025 2:52 PM EDT 03/13/2025 2:52 PM EDT us Antoinette Green CALL CENTER TEAM LEADER LAB BLOOD ORDERABLES Final Res ult [facility] [address] [place] [address] [phone] * (ABNORMAL) Comprehensive Metabolic Panel (03/13/2025 2:52 PM EDT) Only the most recent of2 resultswithin the time period is included. Sodium 139 135 - 145 mmol/L [facility] Potassium 4.3 3.3 - 5.1 mmol/L [facility] Chloride 104 96 - 108 mmol/L [facility] Carbon Dioxide 29 22 - 29 mmol/L [facility] Anion Gap 10(L) 12 - 20 [facility] Urea Nitrogen (BUN) 9 9 - 16 mg/dL [facility] Creatinine, Serum 0.71 0.5 - 1.4 mg/dL [facility] Estimated Glomerular Filt Rate >60 [facility] Comment:Chronic Kidney Disea se: Estimated GFR < 60 mL/min/[id number] Kidney Disease: Estimated GFR < 15 mL/min/1.73m2 Glucose 96 60 - 115 mg/dL [facility] Calcium 9.1 8.4 - 10.2 mg/dL [facility] Bilirubin, Total 0.2 0.0 - 1.0 mg/dL [facility] Aspartate Amino Transferase 28 5 - 37 U/L [facility] Alanine Aminotransferase 28 0 - 40 U/L [facility] Total Protein 7.8 6.5 - 8.0 g/dL [facility] Albumin Level 4.1 3.5 - 5.0 g/dL [facility] Alkaline Phosphatase 87 39 - 117 U/L [facility] Blood Venous blood specimen / Unknown 03/13/2025 2:52 PM EDT 03/13/2025 2:52 PM EDT us Antoinette Green CALL CENTER TEAM LEADER LAB BLOOD ORDERABLES Final Res ult [facility] [address] [place] [phone] * Albumin, Random Urine W/Creatinine (03/13/2025 2:42 PM EDT) Creatinine, Urine 146.13 mg/dL [facility] Microalbumin Urine 10.0 mg/L [facility] Microalbum Creatinine Ratio Ur 6.8 <30 ug/mg cr [facility] Comment:Albumin/Creatinine R atio Reference Ranges: Normal: < 30 ug/mg creatinine Microalbuminuria: 30 - 300 ug/mg creatinineClinical Albuminuria: > 300 ug/mg creatinine Urine 03/13/2025 2:42 PM EDT 03/13/2025 3:02 PM EDT Antoinette Green [facility] URINE ORDERABLES Final Res ult [facility] [address] [place] [address] [phone] * Chlamydia/N. Gonorrhoeae RNA, TMA, Urogenitial (03/13/2025 2:42 PM EDT) CT PCR NOT DETECTED Not Detect. [facility] Comment:A not detected test result does [...] psychologicalconsequences. NG PCR NOT DETECTED Not Detect. [facility] Comment:A not detected test result does [...] PM EDT 03/13/2025 3:02 PM EDT Narrative [facility] - 03/13/2025 4:54 PM EDT Urine Antoinette WHYTE LAB MICROBIOLOGY - GENERAL ORD ERABLES Final Result Performing Organization Address City/[facility] Co de Phone Number [facility] [address] [place] [phone] * (ABNORMAL) Sed Rate by Modified Westergren (03/13/2025 2:36 PM EDT) Only the most recent of2 resultswithin the time period is included. Erythrocyte Sedimentation Rate 18(H) 0 - 15 MM/HR [facility] Comment:Patients with polycy themia and many hemoglobin abnormalitiesmay have depressed sed rates whereas patients with anemiamay have elevated sed rates. 03/13/2025 2:36 PM EDT 03/13/2025 3:24 PM EDT Generic External Data Provider LAB BLOOD ORDERAB LES Final Result Performing Organization Address [facility] Co de Phone Number [facility] [address] [place] [phone] * POCT Glucose (02/20/2025 10:23 AM EDT) Only the most recent of2 resultswithin the time period is included. Glucose Blood, POC 164 60 - 200 mg/dL QC Media Lot # [id number] Lot# Expiration Date [id number] Blood Capillary blood specimen / Unknown 02/20/2025 10:23 AM EDT Antoinette WHYTE POINT OF CARE TEST ENTER/EDIT ORDERABLES Final Result * (ABNORMAL) POCT HGB A1C (01/13/2025 2:04 PM EST) Hemoglobin A1C 6.5 4.0 - 6.0 % QC Media Lot # [id number] Lot# Expiration Date [id number] Blood 01/13/2025 2:04 PM EST Antoinette Green CALL CENTER TEAM LEADER POINT OF CARE TEST ENTER/EDIT ORDERABLES Final Result * Hm Colonoscopy (06/07/2020 10:13 AM EDT) Historical Provider HEALTH MAINTENANCE Final Result from Last 3 Months or Most Recently Relevant to Health Maintenance [place] [address] [place] [address] [place] [address] [place] [phone] Care Teams Layer Out Plate Glass Relationship Specialty Start Date End Date Isabell Mistyr MD [address] [place] [address] PCP - General Family Medicine 10/21/22
--- OUTSIDE RECORDS SUMMARY | 2025-03-13 17:56 | XMS_ITS | Encounter Summary ---
Author Organization [employer] [facility] Address [address] [facility] 7t [place] [address] Care Team Providers Care Hand Crown Pouncer Name Role Phone Isabell Mistry MD Primary Care Provider [phone] Encounter Details Date Type Department Care Team [...] Description 03/31/2025 3:15 PM EDT Office Visit [facility] [address] [place] [address] Antoinette Green FNP [address] [place] [address] documented as of this encounter Procedures Procedure Name Priority Date/Time Associated Diagnosis Comments C-REACTIVE PROTEIN Routine 03/13/2025 2: 52 PM EDT SED RATE BY MODIFIED WESTERGREN Routine 03/13/2025 2:36 PM EDT documented in this encounter Results * (ABNORMAL) C-reactive Protein (03/13/2025 2:52 PM EDT) C Reactive Protein 1.32(H) < or = 0.50 mg/dL [facility] 03/13/2025 2:52 PM EDT 03/13/2025 2:52 PM EDT us Generic External Data Provider LAB BLOOD ORDERAB LES Final Result [facility] [address] [place] [phone] * (ABNORMAL) Sed Rate by Modified Leónergren (03/13/2025 2:36 PM EDT) Erythrocyte Sedimentation Rate 18(H) 0 - 15 MM/HR [facility] Comment:Patients with polycy themia and many hemoglobin abnormalitiesmay have depressed sed rates whereas patients with anemiamay have elevated sed rates. 03/13/2025 2:36 PM EDT 03/13/2025 3:24 PM EDT us Generic External Data Provider LAB BLOOD ORDERAB LES Final Result [facility] [address] [place] [phone] documented in this encounter Visit Diagnoses Not on filedocumented in this encounter Additional Health Concerns Assessment Noted Time PHQ-9 Depression Total Score: 17 025 3:39 PM EST documented as of this encounter Care Teams Hand Crown Pouncer Relationship Specialty Start Date End Date Isabell Mistry MD [address] [place] [address] PCP - General Family Medicine 10/21/22 documented as of this encounter
--- OUTSIDE RECORDS SUMMARY | 2025-03-13 17:56 | XMS_ITS | Encounter Summary ---
Author Organization [employer] [facility] Address [address] [place] [address] 7[address] [place] [address] Care Team Providers Care Net Software Architect Name Role Phone Isabell Mistry MD Primary Care Provider [phone] Reason for Visit * Reason Onset Date Comments Nurse Triage 03/04/2024 Encounter Details Date Type Department Care Team ([facility] st Contact Info) Description 03/04/2024 Telephone [facility] [address] [place] [address] Isabell Mistry MD [address] [place] [address] Nurse Triage Social History Tobacco Use Types [...] t he electric, gas, oil or water bepretty threatened to shut off services in your [...] Center 03/11/2024 10:30 AM Isabell Mistry MD [facility] Video visit offer not recorded Positive [...] 3:15 PM EDT Office Visit [facility] [address] [place] [address] Antoinette Green FNP [address] [place] [address] documented as of this encounter Visit Diagnoses Not on filedocumented in this encounter Additional Health Concerns Assessment Noted Time PHQ-9 Depression Total Score: 16 03/12/ 023 1:26 PM EDT documented as of this encounter Care Teams Net Software Architect Relationship Specialty Start Date End Date Isabell Mistry MD [address] [place] [address] PCP - General Family Medicine 10/21/22 documented as of this encounter
--- OUTSIDE RECORDS SUMMARY | 2025-03-13 17:56 | XMS_ITS | Encounter Summary ---
Author Organization [email or web address] [facility] Address [address] [facility] [address] [facility] 7t [place] [address] Care Team Providers Care Counterintelligence Specialist Name Role Phone Isabell Mistry MD Primary Care Provider [phone] Reason for Visit * Reason Onset Date Comments Med Refill 05/23/2024 Encounter Details Date Type Department Care Team ([facility] st Contact Info) Description 05/23/2024 Telephone [facility] [address] [place] [address] Isabell Mistry MD [address] [place] [address] Med Refill Social History Tobacco Use Types [...] MG/3ML solution pen-injector To be sent to: [facility] [place], [place] - [address] [place] [address] documented in this encounter Plan of Treatment Upcoming Encounters Date Type Department Care Team (Late st Contact Info) Description 03/31/2025 3:15 PM EDT Office Visit [facility] [address] [place] [address] Antoinette Green FNP [address] [place] [address] documented as of this encounter Visit Diagnoses Not on filedocumented in this encounter Additional Health Concerns Assessment Noted Time PHQ-9 Depression Total Score: 16 023 1:26 PM EDT documented as of this encounter Care Teams Counterintelligence Specialist Relationship Specialty Start Date End Date Isabell Mistry MD [address] [place] [address] PCP - General Family Medicine 10/21/22 documented as of this encounter
--- OUTSIDE RECORDS SUMMARY | 2025-03-13 17:56 | XMS_ITS | Clinical Summary ---
Author Organization [facility] Address [address] [place] [address] Phone Care Team Providers Care Bus Dispatcher [employer] Name Role Phone Isabell Mistry MD Primary Care Provider [phone] Allergies Active Allergy Reactions Criticality Noted Date Comments Codeine Anaphylaxis High 10/13/2024 Medications cyclobenzaprine (FLEXERIL) 10 mg tablet Take 0.5-1 tablets (5-10 mg total) by mouth 3 (three) times a day if needed for muscle spasms for up to 10 days. 15 tablet 10/14/2024 Active Medical History Medical History Date Comments Hypertension Arthritis Bipolar 2 disorder ([facility] V24, [facility] V28) Diabetes mellitus ([facility] V24, [facility] V28) Social History Tobacco Use [...] 1:45 PM EDT Consult Orthopedic Surgery - [place] [address] [phone] Antonino Eller, DPM [address] [address] Health Maintenance Due Date Last Done Comments [...] GENERIC MEDICARE MEDICAID - [place] Care Teams Bus Dispatcher [place] Relationship Specialty Start Date End Date Isabell Mistry MD [address] [place] [address] PCP - General Family Medicine 02/02/25
== END 2025-03-13 16:10 | disposition home or self-care (01) ==
LOC: HO.RHE 15:04
PROVIDERS: PCP Family Medicine; Visit Provider Student in an Organized Health Care Education/Training Program
DX: L40.9 Psoriasis, unspecified (principal); L40.50 Arthropathic psoriasis, unspecified; Z79.61 Long term (current) use of immunomodulator; Z79.620 Long term (current) use of immunosuppressive biologic
CPT/HCPCS: 99215; G2211

== ENCOUNTER 2025-07-11 14:54 | Outpatient (REF) | payer MEDICARE, MEDICAID, SELFPAY ==
[2025-07-11 17:52] LABS: MANUAL DIFF FLAG NO
[2025-07-11 18:23] LABS: Hematocrit 35.9 % (42.0-52.0); Hemoglobin 11.6 g/dl (14.0-18.0); Imm Gran Abs Auto 0.03 X10*3/uL (0.00-0.03); Imm Gran Pct Auto 0.4 % (0.0-0.4); Lymphocytes Absolute Auto 1.7 X10*3/uL (1.2-4.9); Mean Corpuscular HGB Conc 32.3 g/dl (31.0-36.0); Mean Corpuscular Hemoglobin 26.2 pg (27.0-33.0); Mean Corpuscular Volume 81.2 fL (80.0-98.0); NRBC Abs Auto 0.000 X10*3/uL (0.0-0.012); NRBC Pct Auto 0.0 /100WBC (0.0-0.2); Platelet Count 404 X10*3/uL (160-400); Red Blood Count 4.42 X10*6/uL (4.60-5.80); White Blood Count 8.5 X10*3/uL (4.8-10.8)
[2025-07-11 18:44] LABS: Alanine Aminotransferase 24 U/L (0-40); Albumin Level 4.3 g/dL (3.5-5.0); Alkaline Phosphatase 97 U/L (39-117); Anion Gap 12 (12-20); Aspartate Amino Transferase 57 U/L (5-37); Blood Urea Nitrogen 14 mg/dL (9-16); Calcium 9.3 mg/dL (8.4-10.2); Carbon Dioxide 29 mmol/L (22-29); Chloride 101 mmol/L (96-108); Estimated Glomerular Filt Rate > 60; Potassium 4.2 mmol/L (3.3-5.1); Sodium 138 mmol/L (135-145); Total Protein 7.7 g/dL (6.5-8.0)
== END 2025-07-11 14:55 | disposition home or self-care (01) ==
LOC: HO.HKASLDS 14:54
PROVIDERS: PCP Family Medicine; Visit Provider Student in an Organized Health Care Education/Training Program
DX: L40.50 Arthropathic psoriasis, unspecified (principal); M65.90 Unspecified synovitis and tenosynovitis, unspecified site; Z79.61 Long term (current) use of immunomodulator; Z79.620 Long term (current) use of immunosuppressive biologic
CPT/HCPCS: 36415; 80053; 85025; 85652; 86140; 99212

== ENCOUNTER 2025-07-11 14:54 | Outpatient (AMB) | payer MEDICARE, MEDICAID, SELFPAY ==
--- NOTE | 2025-07-11 15:23 | A.OFFVIS_ITS ---
Vital Signs 07/11/25 15:25 Height 5 ft 6 in Weight 247 lb 5.738 oz BMI 39.9 BP 142/80 H Blood Pressure Location Lt brachial Position Sitting Pulse 71 Pulse Source Pulse Oximeter Pulse Oximetry (%) 99 Oxygen Delivery Method Room Air Intake Visit Reasons: PSA Intake Note: Patient last seen by doctor Isabel Jean on 02/08/25. Patient presents for PMR follow up and test results. Allergies codeine Allergy (Severe, Verified 07/11/25 15:29) Swelling Medication List - Last Reconciled 07/11/25 by Isabel Jean MD apremilast (Otezla) 30 mg PO BID diclofenac sodium 1% (Voltaren Arthritis Pain) 4 grams topical QID gabapentin 300 mg PO TID glipizide 5 mg PO BID guselkumab (Tremfya) Inject 100 mg subcutaneously every 4 weeks for 2 doses hydrochlorothiazide 25 mg PO DAILY hydroxyzine HCl 25 mg PO TID PRN lisinopril 40 mg PO DAILY meloxicam 15 mg PO DAILY metformin ER 1,000 mg PO BID polyethylene glycol 3350 17 grams PO DAILY semaglutide (Ozempic) 1 mg subcut QWEEK spironolactone 25 mg PO DAILY triamcinolone acetonide 0.1% 1 appl topical BID HPI Comments Details: Patient is a 44-year-old male with hypertension, diabetes, depression with anxiety, bipolar disorder and psoriasis complicated by psoriatic arthritis here today for follow up Interval History: Patient last seen 03/13/25 with me - On Leflunomide and Rinvoq - No improvement in joint pain or rash - Had significant PsO rash all over his body - Stopped leflunomide, rinvoq and prednisone - Started Guselkumab and apremilast Today - On Guselkumab and apremilast - Doing much better on this combination with resolution of his back and chest PsO and Arms. Still has some PsO of his legs bilaterally - Hands and Knees with prolonged AM stiffness and pain Rheumatologic History: per patient: PSO dx around 1999 Enbrel secondary nonresponse Humira no response Taltz helped initially then stopped helping Cosentyx ineffective Cyclosporin not helpful Topical steroids not helpful Skyrizi started 01/08 effective DC 02/2024 2ry nonresponse Sotyktu 02/2024 DC 05/2024 ineffective MTX started 01/08. DC 06/2024 ineffective Bimzelx 06/2024- DC 08/2024 ineffective Cosentyx infusions 08/2024 received 3 doses, ineffective Initial history: This is a 41-year-old male with a past medical history of hypertension, dyslipidemia, diabetes mellitus and psoriasis of presents for evaluation of psoriasis and psoriatic arthritis. Per patient he was diagnosed with psoriasis more than 20 years ago and psoriatic arthritis about 10 years ago. He stated he was on multiple medications for psoriasis but does not know the specifics. He stated that topical creams did not help. He was on Enbrel many years ago which helped for some time then it stopped helping, Humira did not help. He was started on Taltz about a year ago and it helped for about 5-6 months then stopped helping. He was also on cyclosporin for a few months which did seem to help but stopped helping. Currently has bilateral knee pain and right wrist pain. He denies any significant back pain. He had a colonoscopy last year for rectal bleeding and was told he has internal hemorrhoids. Per patient he was not told he has IBD. No inflammatory back pain symptoms. No history suggestive of uveitis. 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 Review of Systems Const Details: Review of Systems Constitutional: Denies fever, chills, weight loss ENT: Denies vision changes, eye pain or eye redness, dental caries, dry mouth GI: Denies nausea, vomiting, diarrhea, abdominal pain, change in BM Pulm: Denies SOB, ANN, hemoptysis, wheezing Cards: Denies chest pain, palpitations Skin: Denies Raynaud's, photosensitivity, GREENHOUSE SPECIALIST: Denies headaches, weakness, paresthesias, recurrent falls MSK: as per HPI All other systems reviewed and are unremarkable except noted above Physical Exam Exam Exam: Vital signs reviewed Physical Examination CONSTITUITIONAL Patient alert and cooperative. Well appearing and in no apparent painful distress MSK Hands * Right Hand: Able to make a fist. No swelling but TTP of the MCPs * Left Hand: Able to make a fist. No swelling but TTP of the MCPs Wrists * Right Wrist: Full ROM to flexion and extension. No swelling or TTP * Left Wrist: Full ROM to flexion and extension. No swelling or TTP Elbows * Right Elbow: Full ROM. No swelling or TTP. No TTP of the medial epicondyle. No TTP of the lateral epicondyle * Left Elbow: Full ROM. No swelling or TTP. No TTP of the medial epicondyle. No TTP of the lateral epicondyle Shoulders * Right shoulder: Full ROM. No swelling noted. No TTP of the AC joint. No TTP of the subacromial bursa. No TTP of the posterior shoulder * Left shoulder: Full ROM. No swelling noted. No TTP of the AC joint. No TTP of the subacromial bursa. No TTP of the posterior shoulder Knees * Right knee: Full ROM. No swelling noted. TTP of the knee joint line. * Left knee: Full ROM. No swelling noted. TTP of the knee joint line. Ankles * Right ankle: Good ankle dorsiflexion and plantar flexion. No swelling. No TTP of the ankle joint * Left ankle: Good ankle dorsiflexion and plantar flexion. No swelling. No TTP of the ankle joint Feet * Right foot: Negative squeeze test * Left foot: Negative squeeze test Tender points? * No tenderness to palpation of the bilateral trapezius, supraspinatus, anterior costochondral junctions, bilateral suboccipital muscle insertions SKIN Improved PsO rash Vital Signs: Last Vital Signs Pulse 71 07/11/25 15:25 BP 142/80 H 07/11/25 15:25 Pulse Ox 99 07/11/25 15:25 Oxygen Delivery Method Room Air 07/11/25 15:25 BMI result Body Mass Index 39.9 Results Reviewed Results Reviewed: Laboratory Tests 01/03/25 03/13/25 03/13/25 13:33 14:36 14:52 WBC 8.2 RBC 4.39 L Hgb 11.7 L Hct 35.8 L Plt Count 363 ESR Pending Sodium 137 Potassium 4.2 Chloride 100 Carbon Dioxide 30 H BUN 12 Creatinine 0.67 AST 26 ALT 28 Alkaline Phosphatase 89 C-Reactive Protein 1.91 H HLA B27 negative Assessment & Plan Assessment & Plan (1) Psoriasis: Comment: per patient: PSO dx around 1999 Enbrel secondary nonresponse Humira no response Taltz helped initially then stopped helping Cosentyx ineffective Cyclosporin not helpful Topical steroids not helpful Skyrizi started 01/08 effective DC 02/2024 2ry nonresponse Sotyktu 02/2024 DC 05/2024 ineffective MTX started 01/08. DC 06/2024 ineffective Bimzelx 06/2024- DC 08/2024 ineffective Cosentyx infusions 08/2024 received 3 doses, ineffective Code(s): L40.9 - Psoriasis, unspecified Category: Medical Plan: #PsO Patient is a 44-year-old male with severe psoriasis and PsA here today for follow up. Doing much better on Tremfya and otezla! Plan - Guselkumab 100 mg every 8 weeks - Apremilast 30 mg twice daily - Labs today: CBC, CMP, ESR, CRP - RTC 4 months - Labs before visit: CBC, CMP, ESR, CRP (2) Psoriatic arthritis: Code(s): L40.50 - Arthropathic psoriasis, unspecified Category: Medical Plan: #PsA Patient with psoriatic arthritis complicating his psoriasis. We will continue his current regimen Offered steroid injection today but wanted to defer Had some synovitis on exam today, hopefully there will be improvement over the next 4 months (3) Long-term current use of apremilast: Code(s): Z79.61 - marine oil terminal superintendent (current) use of immunomodulator Plan: #Long-term Current Use of Apremilast Risks and benefits of Apremilast in the management of psoriatic arthritis and psoriasis discussed with the patient. Benefits include decreased joint pain and morbidity Risks include GI upset including diarrhea, hypersensitivity reactions, significant weight loss, symptoms of depression (4) Long-term current use of guselkumab: Code(s): Z79.620 - intermediate (current) use of immunosuppressive biologic Plan: #Long-term IL 23 Inhibitors: Guselkumab Risks and benefits of IL 23 inhibitors in the management of psoriatic arthritis and psoriasis discussed with the patient Benefits include improved psoriasis and psoriatic arthritis Risks include GI upset, injection site reactions, increased risk of fungal infections and other serious infections Plan I spent 30 minutes reviewing the record and labs, taking a history, examining the patient, discussing the treatment plan, ordering diagnostic work up and documenting in the medical record Medications: Changed From guselkumab (Tremfya) Inject 100 mg subcutaneously every 4 weeks for 2 doses 2 mL 3RF L40.50 - Arthropathic psoriasis, unspecified, L40.9 - Psoriasis, unspecified To guselkumab (Tremfya) 100 mg subcut Q8W 1 mL 5RF L40.50 - Arthropathic psoriasis, unspecified, L40.9 - Psoriasis, unspecified Refilled apremilast (Otezla) Start after the induction pack 30 mg PO BID 180 tabs 1RF L40.50 - Arthropathic psoriasis, unspecified, L40.9 - Psoriasis, unspecified Coding Level of Care Code Est Pt Level 4 (45254) Complex EM visit Add On G2211 Diagnoses Psoriasis L40.9 Psoriatic arthritis L40.50 Long-term current use of apremilast Z79.61 Long-term current use of guselkumab Z79.620
[2025-07-11 15:25] VITALS: BP 142/80; PULSE 71; O2SAT 99; BMI 39.9
--- OUTSIDE RECORDS SUMMARY | 2025-07-11 15:49 | XMS_ITS | Encounter Summary ---
Author Organization [employer] Address [address] [facility] [address] [place] [address] Care Team Providers Care Acid Strength Inspector Name Role Phone Isabell Mistry MD Primary Care Provider [phone] Encounter Details Date Type Department Care Team ([facility] st Contact Info) Description 03/31/2025 Telephone [facility] MEDICINE [address] [place] [address] Isabell Mistry MD [address] [place] [address] Social History Tobacco Use Types Packs/Day Years [...] encounter Miscellaneous Notes * Telephone Encounter - Wade Smith - 03/31/2025 2:33 PM EDT Tc from pt requesting to R/S appointment 03/31 for Follow Up Extended. Machine Made Shoe Unit Worker inform no soon availability as will like a callback with a new appointment. documented in this encounter Plan of Treatment Upcoming Encounters Date Type Department Care Team ([facility] st Contact Info) Description 09/06/2025 10:30 AM EDT Office Visit [facility] [address] [place] [address] Isabell Mistry MD [address] [place] [address] documented as of this encounter Visit Diagnoses Not on filedocumented in this encounter Additional Health Concerns Assessment Noted Time PHQ-9 Depression Total Score: 17 01/13/ 025 3:39 PM EST documented as of this encounter Care Teams Acid Strength Inspector Relationship Specialty Start Date End Date Isabell Mistry MD [address] [place] [address] PCP - General Family Medicine 10/21/22 documented as of this encounter
--- OUTSIDE RECORDS SUMMARY | 2025-07-11 15:49 | XMS_ITS | Encounter Summary ---
Author Organization [employer] Address [address] [facility] [place] [address] Care Team Providers Care Coating Machine Operator Helper Name Role Phone Isabell Mistry MD Primary Care Provider [phone] Encounter Details Date Type Department Care Team (Late st Contact Info) Description 01/17/2025 Orders Only [facility] MED & PEDS [address] [place], [place] [id number] Provider, MD Whit Social History Tobacco Use [...] Care Team (Late st Contact Info) Description 09/06/2025 10:30 AM EDT Office Visit [facility] [address] [place] [address] Isabell Mistry MD [address] [place] [address] documented as of this encounter Procedures Procedure Name Priority Date/Time Associated Diagnosis Comments COLONOSCOPY Routine 06/07/2020 10:13 AM EDT documented in this encounter Results * Hm Colonoscopy (06/07/2020 10:13 AM EDT) us Historical Provider HEALTH MAINTENANCE Final Result documented in this encounter Visit Diagnoses Not on filedocumented in this encounter Additional Health Concerns Assessment Noted Time PHQ-9 Depression Total Score: 17 025 3:39 PM EST documented as of this encounter Care Teams Coating Machine Operator Helper Relationship Specialty Start Date End Date Isabell Mistry MD [address] [place] [address] PCP - General Family Medicine 10/21/22 documented as of this encounter
--- OUTSIDE RECORDS SUMMARY | 2025-07-11 15:50 | XMS_ITS | Encounter Summary ---
Author Organization [employer] Address [address] [facility] [address] [place] [address] Care Team Providers Care Overhauler Bus Truck Name Role Phone Isabell Mistry MD Primary Care Provider [phone] Reason for Visit * Reason Onset Date Comments Nurse Triage 03/04/2024 Encounter Details Date Type Department Care Team ([facility] st Contact Info) Description 03/04/2024 Telephone [facility] MED & PEDS [address] [place], [place] [phone] Isabell Mistry MD [address] [place] [address] Nurse Triage Social History Tobacco Use Types [...] Center 03/11/2024 10:30 AM Isabell Mistry MD [facility] Video visit offer not recorded Positive [...] Description 09/06/2025 10:30 AM EDT Office Visit [facility] MED [facility] PEDS [address] [place] [address] Isabell Mistry MD [address] [place] [address] documented as of this encounter Visit Diagnoses Not on filedocumented in this encounter Additional Health Concerns Assessment Noted Time PHQ-9 Depression Total Score: 16 023 1:26 PM EDT documented as of this encounter Care Teams Overhauler Bus Truck Relationship Specialty Start Date End Date Isabell Mistry MD [address] [place] [address] PCP - General Family Medicine 10/21/22 documented as of this encounter
--- OUTSIDE RECORDS SUMMARY | 2025-07-11 15:50 | XMS_ITS | Clinical Summary ---
Author Organization [facility] Address [address] [place] [address] Phone Care Team Providers Care Seasonal Package Handler Name Role Phone Isabell Mistry MD Primary Care Provider [phone] Allergies Active Allergy Reactions Criticality Noted Date Comments Codeine Anaphylaxis High 10/13/2024 Medications cyclobenzaprine (FLEXERIL) 10 mg tablet Take 0.5-1 tablets (5-10 mg total) by mouth 3 (three) times a day if needed for muscle spasms for up to 10 days. 15 tablet 10/14/2024 Active Medical History Medical History Date Comments Hypertension Arthritis Bipolar 2 disorder ([facility] V24, [facility] V28) Diabetes mellitus ([facility] V24, [facility] V28) Social History Tobacco Use [...] 64 10/13/2024 4:45 PM EST Temperature 36.6 C (97.9 F) 10/13/2024 4:45 PM EST Respiratory Rate 18 10/13/2024 4:45 PM EST [...] 5 Years) and At-Risk Patients (6 to 49 Years) (1 of 2 - PCV) 1998 COVID-19 Vaccine (3 - Pfizer risk series) 05/22/2021 04/24/2021, 04/03/2021 DTaP,Tdap,and Td Vaccines (3 - Td or Tdap) 03/26/2022 03/26/2012, 09/01/2006 Colorectal Cancer Screening: Colonoscopy 10/15/2022 HIV Screening 10/15/2022 Hepatitis C Screening 10/15/2022 Medicare Annual Wellness Visit 10/15/2022 Social Influencers of Health Screening 10/15/2022 Diabetes: Annual Urine Albumin-Creatinine Ratio (uACR) 10/13/2024 Depression Screening 11/16/2024 Diabetes: Blood Sugar Contro l Test (HGBA1C) 03/15/2025 09/14/2024 Influenza Vaccine (#1) 2025 , 12/29/2019, 09/09/2011 Diabetes: Annual GFR (Glomerular Filtration Rate) 08/30/2025 08/30/2024 Hypertension/CHF/CAD Annual BMP Blood Test 08/30/2025 08/30/2024 Cholesterol Screening (Lipid Panel) 07/02/2028 07/02/2023 HIB [...] GENERIC MEDICARE MEDICAID - [place] Care Teams Seasonal Package Handler Relationship Specialty Start Date End Date Isabell Mistry MD [address] [place] [address] PCP - General Family Medicine 02/02/25
--- OUTSIDE RECORDS SUMMARY | 2025-07-11 15:50 | XMS_ITS | Encounter Summary ---
Author Organization [employer] Address [address] [facility] [address] [place] [address] Care Team Providers Care Tank Storage Supervisor Name Role Phone Isabell Mistry MD Primary Care Provider [phone] Reason for Visit * Reason Onset Date Comments Med Refill 05/23/2024 Encounter Details Date Type Department Care Team ([facility] st Contact Info) Description 05/23/2024 Telephone [facility] MEDICINE [address] [place] [address] Isabell Mistry MD [address] [place] [address] Med Refill Social History Tobacco Use Types [...] MG/3ML solution pen-injector To be sent to: [facility] - [place], [place] - [address] [place] [address] documented in this encounter Plan of Treatment Upcoming Encounters Date Type Department Care Team (Late st Contact Info) Description 09/06/2025 10:30 AM EDT Office Visit [facility] MED & PEDS [address] [place] [address] Isabell Mistry MD [address] [place] [address] documented as of this encounter Visit Diagnoses Not on filedocumented in this encounter Additional Health Concerns Assessment Noted Time PHQ-9 Depression Total Score: 16 023 1:26 PM EDT documented as of this encounter Care Teams Tank Storage Supervisor Relationship Specialty Start Date End Date Isabell Mistry MD [address] [place] [address] PCP - General Family Medicine 10/21/22 documented as of this encounter
--- OUTSIDE RECORDS SUMMARY | 2025-07-11 15:50 | XMS_ITS | Clinical Summary ---
Author Organization [employer] Address [address] [facility] [address] [place] [address] Care Team Providers Care Portfolio Administrator Name Role Phone Isabell Mistry MD Primary Care Provider [phone] Allergies Active Allergy Reactions Criticality Noted Date Comments Bee Venom 07/05/2025 Codeine Hives Low 02/25/2021 Other reaction(s): throat swelling Medications * This document contains information received from the source organization and may not represent a complete record from that organization. triamcinolone (Kenalog) 0.1 % ointmentIndicati ons:Psoriasis vulgaris Apply topically 2 times daily. 453.6 [...] each 11 023 Active ceramides (CeraVe) moisturizing creamIndications :Psoriasis vulgaris Apply 1 application topically if needed [...] Take by mouth in the morning. Active Alcohol Swabs pads 023 Active senna-docusate sodium (Senokot-S) 8.6-50 MG tabletIndication s:Constipation, unspecified constipation type Take 2 tablets by mouth if needed at bedtime for constipation. 180 tablet 1 023 Active hydrocortisone (Anusol-HC) 2.5 % rectal cream Insert into the rectum 2 times daily. 90 g 1 023 Active ibuprofen 600 MG tablet TAKE ONE TABLET THREE TIMES DAILY NEEDED FOR PAIN 024 Active cyclobenzaprine (Flexeril) 10 MG tablet Take 5-10 mg by mouth if needed in the morning, at noon, and at bedtime. 024 Active Rinvoq 15 MG tablet sustained-releas e 24 hourIndications: Psoriasis vulgaris 025 Active gabapentin (Neurontin) 400 MG capsuleIndicatio ns:Diabetic polyneuropathy associated with type 2 diabetes mellitus (CMS/HCC) Take 1 capsule (400 mg) by mouth 3 times daily. 90 capsule 2 025 Active hydrOXYzine HCl (Atarax) 25 MG tabletIndication s:Psoriasis vulgaris Take 1 tablet (25 mg) by mouth every 8 (eight) hours if needed for itching, allergies or anxiety. 60 tablet 2 025 Active lisinopril 40 MG tablet TAKE ONE TABLET BY MOUTH AT BEDTIME 90 tablet 1 025 Active ramelteon (Rozerem) 8 MG tabletIndication s:Sleep difficulties Take 1 tablet (8 mg) by mouth at bedtime. 90 tablet 1 025 2025 Active hydroCHLOROthiaz donna (HYDRODiuril) 25 MG tabletIndication s:Primary hypertension Take 1 tablet (25 mg) by mouth in the morning. 90 tablet 1 025 Active amLODIPine (Norvasc) 5 MG tablet TAKE ONE TABLET DAILY 90 tablet 1 025 Active metFORMIN, OSM, (Fortamet) 1000 MG 24 hr tablet TAKE 1 TABLET BY MOUTH WITH BREAKFAST AND EVENING MEAL. DO NOT CRUSH, CHEW OR SPLIT. 180 tablet 1 025 Active metFORMIN XR (Glucophage-XR) 500 MG 24 hr tablet Take 2 tablets (1,000 mg) by mouth with evening meal. Do not crush, chew, or split. 180 tablet 2 Active Tremfya 100 MG/ML injection Active methadone (Dolophine) 10 MG tablet See Instructions, 47 mg po By Mouth Daily, 0 Refills, Maintenance, 02/24/18 10:11:22 AM EDT, Tablet 018 Active leflunomide (Arava) 20 MG tablet Take 1 tablet by mouth Once per day. Active semaglutide (Ozempic) 2 MG/1.5ML solution pen-injectorIndi cations:Type 2 diabetes mellitus without complication, without long-term current use of insulin ([facility]) Inject 0.25 mg under the skin 1 (one) time per week. 1.5 mL 1 Active leflunomide (Arava) 10 MG tablet TAKE ONE TABLET EVERY DAY FOR 2 WEEKS, THEN TAKE TWO TABLETS DAILY THEREAFTER 2024 Discontinued semaglutide (Ozempic, 1 MG/DOSE,) 2 MG/1.5ML solution pen-injectorIndi cations:Type 2 Diabetes Mellitus INJECT 1 MG SUBCUTANEOUSLY EVERY 7 DAYS IN THE ABDOMEN, THIGHS, OR UPPER ARM. ROTATE INJECTION SITES. 3 mL 3 025 2024 Discontinued Ozempic, 1 MG/DOSE, 4 MG/3ML solution pen-injector INJECT 1 MG SUBCUTANEOUSLY EVERY 7 DAYS IN THE ABDOMEN, THIGHS, OR UPPER ARM. ROTATE INJECTION SITES. 2024 Discontinued(T herapy completed) Active Problems Problem Noted Date Diagnosed Date Schizophrenia 07/05/2025 Low back pain 07/05/2025 Gastroesophageal reflux disease 07/05/2025 Urgency incontinence 07/05/2025 Ingrown nail of fourth toe of right foot Sleep difficulties 02/20/2025 Assessment & Plan (02/20/2025 3:35 PM EDT): -Difficulties with sleep onset and maintenance -Previous trials: Melatonin -Plan: Start ramelteon nightly. Reviewed med safety and SE Difficulty with activities of daily living 01/14 Assessment & Plan (02/20/2025 3:37 PM EDT): - LOADMASTER hours/qualification determination in process Assessment & Plan (01/14/2025 3:28 PM EST): -Difficulties primarily with iADLs and reminders for medications. -Information about how to request LOADMASTER evaluation provided on 01/14/25 Healthcare maintenance 01/14/2025 [...] PM EST): -Repeat labs Obstructive sleep apnea syndrome 10/21/2022 Assessment & Plan (02/20/2025 3:35 PM EDT): - Currently with CPAP machine, although difficulties with correct fit. Would benefit from evaluation with sleep medicine specialist. -Referral placed to [facility] sleep medicine Assessment & Plan (01/14/2025 [...] sleep well. Will send to sleep specialist. Chronic pain of both knees 10/21/2022 Primary hypertension 10/21/2022 Assessment & Plan [...] EDT): Discontinue Trulicity and Ozempic. Referring to director process engineering for further evaluation. Assessment & Plan (10/21/2022 [...] EST): Not taking, will check levels Bipolar affective disorder 07/26/2021 Assessment & Plan (02/20/2025 3:38 PM EDT): History of bipolar disorder. Denies acute concerns with mental health. Request for BE. Will also refer to [facility] psych Tran Bates Assessment & Plan (01/14/2025 3:33 PM [...] of severe plaque psoriasis Continue following with [facility] - Dr Gaines Previous medications: Methotrexate, [...] organization. Date Type Department Care Team Description 07/05/2025 3:30 PM EDT Office Visit [facility] [address] [place] [address] Isabell Mistry MD Type 2 diabetes mellitus without complication, without long-term current use of insulin ([facility]) (Primary Dx); Urgency incontinence; Chronic pain of both knees; Ingrown nail of fourth toe of right foot; Erectile dysfunction, unspecified erectile dysfunction type; Encounter for immunization 07/05/2025 Travel 07/03/[address] [phone] Isabell Mistry MD Referral 06/28/2025 Telephone [facility] [address] [place] [address] Isabell Mistry MD chart prep 06/08/[address] [address] Isabell Mistry MD 06/08/[address] [address] Isabell Mistry MD requesting call back 06/07/[address] [address] Isabell Mistry MD 05/30/2025 Travel 05/26/2025 Telephone [facility] [address] [place] [address] Isabell Mistry MD No Show 05/25/2025 Telephone [facility] [address] [place] [address] Isabell Mistry MD Appointment Request 05/22/[address] [address] Isabell Mistry MD Medication Question 05/22/[address] [address] Isabell Mistry MD Nurse Triage 04/17/2025 Refill [facility] [address] [place] [phone] Isabell Mistry MD 04/17/2025 Telephone [facility] [address] [place] [phone] Isabell Mistry MD No Show 04/14/2025 Refill [facility] [address] [place] [address] Isabell Mistry MD 04/14/2025 Telephone [facility] [address] [place] [address] Isabell M[facility] MD [facility] 04/13/2025 Refill [facility] [address] [place] [address] Isabell Mistry MD 04/12/2025 Refill [facility] [address] [place] [address] Isabell Mistry MD Type 2 diabetes mellitus without complication, without long-term current use of insulin ([facility]) from Last 3 Months Immunizations Immunization Administration Dates Next Due Hep B, adult 07/05/2025 Influenza injectable quadriv alent preservative free 07/30/2023,12/29/2019 Influenza, IIV3, injectable 12/30/2013, 1 Influenza, injectable, quadr ivalent, preservative free, pediatric 09/09/2011 Influenza, seasonal, injecta ble, preservative free 01/13/2025,12/30/2013 Pfizer Covid-19 Vaccine 12+ 01/13/2025,,04/03/2021 Pneumococcal Conjugate PCV 20 01/13/2025 TD (adult), 2 Lf tetanus tox oid, preservative free, adsorbed 09/01/2006 Tdap 01/13/2025,11/15/2015,03/26/2012 Social History Tobacco Use Types Packs/Day Years [...] is your housing situation today? I have odc prince 12/29/[address] you [...] Sign Reading Time Taken Comments Blood Pressure 120/70 07/05/2025 3:27 PM EDT Pulse 78 07/05/2025 3:27 PM EDT Temperature 36.9 C (98.4 F) 07/05/2025 3:27 PM EDT Respiratory Rate 20 07/05/2025 3:27 PM EDT Oxygen Saturation 98% 07/05/2025 3:27 PM EDT Inhaled Oxygen Concentration - - Weight 116 kg (254 lb 12.8 oz) 07/05/2025 3:27 P M EDT Height 170 cm (5' 6.93 ) 07/05/2025 3:27 PM EDT Body Mass Index 39.99 07/05/2025 3:27 PM EDT Plan of Treatment Upcoming Encounters Date Type Department Care Team (Late st Contact Info) Description 09/06/2025 10:30 AM EDT Office Visit [facility] [address] [facility] [place] [address] Isabell Mistry MD [address] [place] [address] Health Maintenance Due Date Last Done Comments CT Colonography 1979 FIT DNA/Cologuard 1979 FIT 1979 FOBT 1979 Sigmoidoscopy 1979 Disability Screening 1979 Eye Exam 1989 Family Planning (PISQ) 1994 HPV Vaccines (1 - Male 3-dose series) 1994 Diabetes: Foot Exam 07/30/2024 07/30/2023, 07/30/2023, 07/30/2023, Additional history exists Colonoscopy 06/07/2025 06/07/2020 Colorectal Cancer Screening 06/07/2025 Depression Monitoring 07/13/2025 01/13/2025, 025 Influenza Vaccine (#1) 2025 , 07/30/2023, 12/29/2019, Additional history exists Hepatitis B Vaccines (2 of 3 - 19+ 3-dose series) 08/02/2025 07/05/2025 Alcohol/Substance Use Screening 09/14/2025 09/14/2024 SDOH Screening 12/29/2025 12/29/2024 Diabetes: Hemoglobin A1C 01/05/2026 025, 01/13/2025, 09/14/2024, Additional history exists Diabetes: Urine Protein Screening 03/13/2026 03/13/2025, 07/02/2023, 07/25/2021 Lipid Panel 03/13/2026 03/13/2025, 08/05/2023, 07/25/2021 Tobacco Screening 07/05/2026 07/05/2025 Zoster Vaccines (1 of 2) 2029 DTaP/Tdap/Td Vaccines (4 - Td or Tdap) 01/13/2035 01/13/2025, 11/15/2015, 03/26/2012, Additional history exists RSV Patients and Patients Aged 60 years or older (1 - 1-dose 75+ series) 2054 COVID-19 Vaccine Completed 01/13/2025, 07/2021, 04/03/2021 Pneumococcal Vaccine: Pediatrics (0 to 5 Years) and At-Risk Patients (6 to 49) Years Completed 01/13/2025 HIV Screening Completed 03/13/2025 Hepatitis C Screening Completed 03/13/2025, 025 HIB Vaccines Aged Out No longer eligi [...] Procedure Name Priority Date/Time Associated Diagnosis Comments POCT GLYCATED HEMOGLOBIN, TOTAL Routine 07/05/2025 3:41 PM EDT Type 2 diabetes mellitus without complication, without long-term current use of insulin (CMS/HCC) POCT GLUCOSE Routine 07/05/2025 3:40 PM EDT Type 2 diabetes mellitus without complication, without long-term current use of insulin ([facility]) HEPATITIS PANEL, GENERAL Routine 03/13/2025 2:52 PM EDT HIV 1/2 ANTIGEN/ANTIBODY, FOURTH GENERATION W/RFL Routine 03/13/2025 2:52 PM EDT Healthcare maintenance LIPID PANEL, STANDARD Routine 03/13/2025 2:52 PM EDT Healthcare maintenance ALBUMIN, RANDOM URINE W/CREATININE Routine 03/13/2025 2:42 PM EDT Healthcare maintenance HM COLONOSCOPY Routine 06/07/2020 10:13 AM EDT from Last 3 Months or Most Recently Relevant to Health Maintenance Results * (ABNORMAL) POCT HGB A1C (07/05/2025 3:41 PM EDT) Pathologist [facility] Hemoglobin A1C 6.0(A) 4.0 - 5.7 % QC Media Lot # [id number] Lot# Expiration Date 46, Blood 07/05/2025 3:41 PM EDT Isabell Mistry MD POINT OF CARE TEST ENTER/EDIT ORDERABLES Final Result * (ABNORMAL) POCT Glucose (07/05/2025 3:40 PM EDT) Pathologist [facility] Glucose Blood, POC 206(A) 60 - 200 mg/dL QC Media Lot # [id number] Lot# Expiration Date Blood Capillary blood specimen / Unknown 07/05/2025 3:40 PM EDT Isabell Mistry MD POINT OF CARE TEST ENTER/EDIT ORDERABLES Final Result * Hepatitis Panel, General (03/13/2025 2:52 PM EDT) Pathologist [facility] Hepatitis A IgM Nonreactive Nonreactive [facility] Comment:IgM antibodies to RAZO V not detected; does not exclude earlyacute or recovered HAV infection. ~Hepatitis B Surface Antibody NONREACTIVE Nonreactive [facility] Comment:Nonreactive: < 8.00 mIU/mL Hepatitis B Core Antibody Nonreactive Nonreactive [facility] Hepatitis C Antibody Nonreactive Nonreactive [facility] Comment:Antibodies to HCV no t detected; does not exclude early acuteHCV infection. Hepatitis B Surface Ag Negative Negative [facility] 03/13/2025 2:52 PM EDT 03/13/2025 2:52 PM EDT Generic External Data Provider LAB BLOOD ORDERAB LES Final Result [facility] [address] [place] [address] [phone] * HIV-1/2 Antigen and Antibodies, Fourth Generation, with Reflexes (03/13/2025 2:52 PM EDT) HIV AB/AG Nonreactive Nonreactive [facility] Comment:HIV-1 p24 Ag and/or HIV-1/HIV-2 Ab not detected.A test result that is nonreactive does not exclude thepossibility of exposure to or infection with HIV-1 and/orHIV-2. Nonreactive results in this assay for individualswith prior exposure to HIV-1 and/or HIV-2 may be due toantigen and antibody levels that are below the limit ofdetection of this assay.The Divvyshot HIV Ag/Ab Combo assay result andsupplemental assay results should be interpreted inconjunction with the patient's clinical presentation,history and other laboratory results. If the results areinconsistent with clinical evidence, additional testing issuggested to confirm the result. Blood Venous blood specimen / Unknown 03/13/2025 2:52 PM EDT 03/13/2025 2:52 PM EDT us Antoinette Green BATCH FREEZER OPERATOR LAB BLOOD ORDERABLES Final Res ult [facility] [address] [place] [address] [phone] * (ABNORMAL) Lipid Panel, Standard (03/13/2025 2:52 PM EDT) Triglycerides 150(H) <150 mg/dL [facility] Comment:Desirable Triglyceri de: less than 150 mg/dLBorderline High Triglyceride 150-199 mg/dLHigh Triglyceride: 200-499 mg/dLVery High Triglyceride: greater than or equal to 5OO mg/dL Cholesterol 159 <200 mg/dL [facility] Comment:Desirable Cholestero l: less than 200 mg/dLBorderline High Cholesterol: 200-239 mg/dLHigh Cholesterol: greater than 239 mg/dL LDL Cholesterol Calculated 95 <100 mg/dL [facility] Comment:Desirable LDL: less than 100 mg/dLNear Optimal/Above Optimal LDL: 110- 129 mg/dLBorderline High LDL: 130-159 mg/dLHigh LDL: 160-189 mg/dLVery High LDL: greater than or equal to 190 mg/dL HDL Cholesterol 34(L) >40 mg/dL [facility] Comment:Desirable HDL: great er than 40 mg/dL Note: This HDL assay may give artificially low results in patients with liver disease. Blood Venous blood specimen / Unknown 03/13/2025 2:52 PM EDT 03/13/2025 2:52 PM EDT Antoinette Green [facility] BLOOD ORDERABLES Final Res ult Performing Organization Address [facility] Co de Phone Number [facility] [address] [place] [address] [phone] * Albumin, Random Urine W/Creatinine (03/13/2025 2:42 PM EDT) Creatinine, Urine 146.13 mg/dL [facility] Microalbumin Urine 10.0 mg/L [facility] Microalbum Creatinine Ratio Ur 6.8 <30 ug/mg cr [facility] Comment:Albumin/Creatinine R atio Reference Ranges: Normal: < 30 ug/mg creatinine Microalbuminuria: 30 - 300 ug/mg creatinineClinical Albuminuria: > 300 ug/mg creatinine Urine 03/13/2025 2:42 PM EDT 03/13/2025 3:02 PM EDT Antoinette Green [facility] URINE ORDERABLES Final Res ult Performing Organization Address [facility] Co de Phone Number [facility] [address] [place] [address] [phone] * Hm Colonoscopy (06/07/2020 10:13 AM EDT) Historical Provider HEALTH MAINTENANCE Final Result from Last 3 Months or Most Recently Relevant to Health Maintenance Insurance [place] [address] [place] [address] STANDARD MEDICARE Member Subscriber Plan / Payer (Ef fective 2023-Present) Name:Frankie Vásquez Member ID:[id number] Relation to Subscriber:Self Name:Frankie Vásquez Subscriber ID:[id number] Payer ID:[facility] Group ID:Not on file Type:Medicare Address: [facility] [address] [address] Care Teams Portfolio Administrator Relationship Specialty Start Date End Date Isabell Mistry MD [address] [place] [phone] PCP - General Family Medicine 10/21/22
== END 2025-07-11 15:52 | disposition home or self-care (01) ==
LOC: HO.RHES 14:55
PROVIDERS: PCP Family Medicine; Visit Provider Student in an Organized Health Care Education/Training Program
DX: L40.9 Psoriasis, unspecified (principal); L40.50 Arthropathic psoriasis, unspecified; Z79.61 Long term (current) use of immunomodulator; Z79.620 Long term (current) use of immunosuppressive biologic
CPT/HCPCS: 99214; G2211